=== PATIENT | female | born 1960 | race Caucasian/White ===

== ENCOUNTER → 2020-01-16 | Outpatient (CLI) | payer MEDICARE, BC, OTHER ==
--- NOTE | 2020-01-16 14:01 | CT ---
EXAMINATION TYPE: CT abdomen pelvis w con DATE OF EXAM: 01/16/2020 COMPARISON: None HISTORY: Abdominal swelling CT DLP: 1557.2 mGycm Automated exposure control for dose reduction was used. CONTRAST: CT scan of the abdomen pelvis is performed with IV Contrast, patient injected with 100 mL of Isovue 3 00. FINDINGS- exam limited by motion artifact. LUNG BASES- No significant abnormality is appreciated. LIVER/GB- No gross abnormality is appreciated. PANCREAS- No gross abnormality is seen. SPLEEN- No gross abnormality is seen. ADRENALS- No gross abnormality is seen. KIDNEYS/BLADDER- no hydronephrosis nephrolithiasis or renal mass. BOWEL- no bowel dilatation. Normal appendix. LYMPH NODES- No greater than 1cm abdominal or pelvic lymph nodes areappreciated. OSSEOUS STRUCTURES-scoliosis with multilevel hypertrophic and degenerative changes. OTHER- calcification within the uterus could be related to a fibroid. There also is a calcification involving the right adnexa and a soft tissue nodule. This could be related to calcification the right ovary or exophytic fibroid. Recommend pelvic ultrasound. IMPRESSION- 1. Limited exam due to severe motion artifact. Calcified soft tissue nodule in the right adnexa and c alcification within the uterus. May represent calcified fibroid including exophytic fibroid versus ca lcified ovarian lesion. Recommend pelvic ultrasound.
== END | disposition home or self-care (01) ==
LOC: RADCTMAIN 11:24
PROVIDERS: ATTEND Physician Assistant
DX: M79.89 Other specified soft tissue disorders (principal)
CPT/HCPCS: 74177; Q9967

== ENCOUNTER → 2020-03-09 | Outpatient (CLI) | payer MEDICARE, BC, OTHER ==
--- NOTE | 2020-03-10 09:35 | US ---
EXAMINATION TYPE: US pelvic complete DATE OF EXAM: 03/09/2020 COMPARISON: CT CLINICAL HISTORY: N85.8 NONINFLAMMATORY DISORDER OF UTERUS. Followup for Calcifications seen in uteru s and right adnexa on CT TECHNIQUE: Transabdominal (TA). Transabdominal sonographic images of the pelvis were acquired. Tra nsvaginal sonographic images were deferred per patient's caregiver. Date of LMP: Menopause in 5th decade. EXAM MEASUREMENTS: US exam is technically limited due to partially filled bladder. Uterus: 3.2 x 2.6 x 1.5 cm Endometrial Stripe: not seen Right Ovary: not seen Left Ovary: not seen 1. Uterus: Anteverted 2. Endometrium: not seen 3. Right Ovary: not seen 4. Left Ovary: not seen 5. Bilateral Adnexa: linear echogenicity noted in right adnexa suggestive of bowel with posterior di rty shadow. Ovaries are not identified. 6. Posterior cul-de-sac: wnl IMPRESSION: 1. No suspicious acute abnormality. 2. Exam limited due to bowel gas
== END | disposition home or self-care (01) ==
LOC: RADUSWWP 15:29
PROVIDERS: ATTEND Family Medicine
DX: N85.8 Other specified noninflammatory disorders of uterus (principal)
CPT/HCPCS: 76856

== ENCOUNTER 2020-06-27 04:16 | Inpatient (IN) | payer MEDICARE, BC, OTHER ==
[2020-06-27] MEDS ORDERED: ACETAMINOPHEN TAB 500 MG TAB PO STA (04:19)
[2020-06-27] MEDS ORDERED: KETOROLAC 15 MG/ML 1 ML VIAL IVP STA (04:19)
--- NOTE | 2020-06-27 04:32 | ED ---
Fever HPI - General Chief Complaint: Fever Stated Complaint: Fever Time Seen by Provider: 06/27/20 04:19 Source: family, EMS, RN notes reviewed, old records reviewed Mode of arrival: EMS Limitations: altered mental status - History of Present Illness Initial Comments: This is a 60-year-old female who is a poor story and unable to speak secondary to developmental delay presented today for evaluation of fever after fall out of bed. Again patient cannot provide history was found after fall no real notes of complaint, history obtained from EMS and patient's family. No known exposures to coronavirus but secondary to fever patient does present to ER. MD Complaint: fever, malaise, weakness, other (Fall) -: unknown Temperature Source: subjective, oral Context: sick contacts, multiple patients with similar symptoms (Family did have coronavirus) Associated Symptoms: other (Weakness) Treatments Prior to Arrival: none - Related Data Allergies Allergy/AdvReac Type Severity Reaction Status Date / Time No Known Allergies Allergy Verified 06/27/20 04:30 Review of Systems ROS Statement: Those systems with pertinent positive or pertinent negative responses have been documented in the HPI. ROS Other: All systems not noted in ROS Statement are negative. Past Medical History Past Medical History: Diabetes Mellitus, Hyperlipidemia, Hypertension History of Any Multi-Drug Resistant Organisms: None Reported Past Surgical History: No Surgical Hx Reported Past Psychological History: Anxiety, Depression Smoking Status: Never smoker Past Alcohol Use History: None Reported Past Drug Use History: None Reported General Exam Limitations: altered mental status General appearance: alert, in no apparent distress Head exam: Present: atraumatic, normocephalic, normal inspection Eye exam: Present: normal appearance, PERRL, EOMI. Absent: scleral icterus, conjunctival injection, periorbital swelling ENT exam: Present: normal exam, mucous membranes moist Neck exam: Present: normal inspection. Absent: tenderness, meningismus, lymphadenopathy Respiratory exam: Present: normal lung sounds bilaterally. Absent: respiratory distress, wheezes, rales, rhonchi, stridor Cardiovascular Exam: Present: regular rate, normal rhythm, normal heart sounds. Absent: systolic murmur, diastolic murmur, rubs, gallop, clicks GI/Abdominal exam: Present: soft, normal bowel sounds. Absent: distended, tenderness, guarding, rebound, rigid Extremities exam: Present: normal inspection, full ROM, normal capillary refill. Absent: tenderness, pedal edema, joint swelling, calf tenderness Back exam: Present: normal inspection Neurological exam: Present: alert, oriented X3, CN II-XII intact Psychiatric exam: Present: normal affect, normal mood Skin exam: Present: warm, dry, intact, normal color. Absent: rash Course Vital Signs 06/27/20 06/27/20 04:18 05:22 Temperature 101.0 F H Pulse Rate 79 Respiratory 22 22 Rate Blood Pressure 103/48 O2 Sat by Pulse 96 Oximetry - Reevaluation(s) Reevaluation #1: 06/27/20 06:31 Medical records reviewed Reevaluation #2: 06/27/20 06:31 Unable to tell patient has any change in symptoms. Fevers improved Reevaluation #3: 06/27/20 06:31 Spoke with patient and family regarding the patient's results. - Consultations Consultation #1: Spoke with Dr Montiel who will admit this patient Medical Decision Making - Medical Decision Making 60 female to the ER for evaluation patient presents today for evaluation of fever. Fever after fall. Patient will be rule out coronavirus of urinary tract infection - Lab Data Result diagrams: 06/27/20 04:48 06/27/20 04:48 Lab Results 06/27/20 06/27/20 06/27/20 Range/Units 04:48 04:48 04:48 WBC 7.5 (3.8-10.6) k/uL RBC 4.11 (3.80-5.40) m/uL Hgb 12.3 (11.4-16.0) gm/dL Hct 38.7 (34.0-46.0) % MCV 94.2 (80.0-100.0) fL MCH 30.0 (25.0-35.0) pg MCHC 31.9 (31.0-37.0) g/dL RDW 13.1 (11.5-15.5) % Plt Count 82 L (150-450) k/uL MPV 7.2 Neutrophils % 85 % Lymphocytes % 7 % Monocytes % 6 % Eosinophils % 1 % Basophils % 0 % Neutrophils # 6.3 (1.3-7.7) k/uL Lymphocytes # 0.5 L (1.0-4.8) k/uL Monocytes # 0.4 (0-1.0) k/uL Eosinophils # 0.1 (0-0.7) k/uL Basophils # 0.0 (0-0.2) k/uL Manual Slide Review Performed PT 10.2 (9.0-12.0) sec INR 0.9 (<1.2) APTT 22.9 (22.0-30.0) sec Sodium 135 L (137-145) mmol/L Potassium 4.9 (3.5-5.1) mmol/L Chloride 104 (98-107) mmol/L Carbon Dioxide 24 (22-30) mmol/L Anion Gap 7 mmol/L BUN 33 H (7-17) mg/dL Creatinine 1.37 H (0.52-1.04) mg/dL Est GFR (CKD-EPI)AfAm 48 (>60 ml/min/1.73 sqM) Est GFR (CKD-EPI)NonAf 42 (>60 ml/min/1.73 sqM) Glucose 210 H (74-99) mg/dL Plasma Lactic Acid Archie (0.7-2.0) mmol/L Calcium 9.4 (8.4-10.2) mg/dL Magnesium 1.9 (1.6-2.3) mg/dL Total Bilirubin 1.1 (0.2-1.3) mg/dL AST 21 (14-36) U/L ALT 21 (4-34) U/L Alkaline Phosphatase 77 (38-126) U/L Lactate Dehydrogenase 441 (313-618) U/L C-Reactive Protein 154.6 H (<10.0) mg/L Total Protein 6.3 (6.3-8.2) g/dL Albumin 3.6 (3.5-5.0) g/dL Urine Color Urine Appearance (Clear) Urine pH (5.0-8.0) Ur Specific [place] (1.001-1.035) Urine Protein (Negative) Urine Glucose (UA) (Negative) Urine Ketones (Negative) Urine Blood (Negative) Urine Nitrite (Negative) Urine Bilirubin (Negative) Urine Urobilinogen (<2.0) mg/dL Ur Leukocyte Esterase (Negative) Urine RBC (0-5) /hpf Urine WBC (0-5) /hpf Urine WBC Clumps (None) /hpf Urine Bacteria (None) /hpf Urine Mucus (None) /hpf Coronavirus (PCR) (Not Detectd) 06/27/20 06/27/20 06/27/20 Range/Units 04:48 04:48 05:19 WBC (3.8-10.6) k/uL RBC (3.80-5.40) m/uL Hgb (11.4-16.0) gm/dL Hct (34.0-46.0) % MCV (80.0-100.0) fL MCH (25.0-35.0) pg MCHC (31.0-37.0) g/dL RDW (11.5-15.5) % Plt Count (150-450) k/uL MPV Neutrophils % % Lymphocytes % % Monocytes % % Eosinophils % % Basophils % % Neutrophils # (1.3-7.7) k/uL Lymphocytes # (1.0-4.8) k/uL Monocytes # (0-1.0) k/uL Eosinophils # (0-0.7) k/uL Basophils # (0-0.2) k/uL Manual Slide Review PT (9.0-12.0) sec INR (<1.2) APTT (22.0-30.0) sec Sodium (137-145) mmol/L Potassium (3.5-5.1) mmol/L Chloride (98-107) mmol/L Carbon Dioxide (22-30) mmol/L Anion Gap mmol/L BUN (7-17) mg/dL Creatinine (0.52-1.04) mg/dL Est GFR (CKD-EPI)AfAm (>60 ml/min/1.73 sqM) Est GFR (CKD-EPI)NonAf (>60 ml/min/1.73 sqM) Glucose (74-99) mg/dL Plasma Lactic Acid Archie 1.3 (0.7-2.0) mmol/L Calcium (8.4-10.2) mg/dL Magnesium (1.6-2.3) mg/dL Total Bilirubin (0.2-1.3) mg/dL AST (14-36) U/L ALT (4-34) U/L Alkaline Phosphatase (38-126) U/L Lactate Dehydrogenase (313-618) U/L C-Reactive Protein (<10.0) mg/L Total Protein (6.3-8.2) g/dL Albumin (3.5-5.0) g/dL Urine Color Yellow Urine Appearance Cloudy H (Clear) Urine pH 5.5 (5.0-8.0) Ur Specific [place] 1.014 (1.001-1.035) Urine Protein 1+ H (Negative) Urine Glucose (UA) Negative (Negative) Urine Ketones Trace H (Negative) Urine Blood Small H (Negative) Urine Nitrite Positive H (Negative) Urine Bilirubin Negative (Negative) Urine Urobilinogen <2.0 (<2.0) mg/dL Ur Leukocyte Esterase Large H (Negative) Urine RBC 2 (0-5) /hpf Urine WBC 22 H (0-5) /hpf Urine WBC Clumps Many H (None) /hpf Urine Bacteria Many H (None) /hpf Urine Mucus Rare H (None) /hpf Coronavirus (PCR) Not Detected (Not Detectd) - EKG Data -: EKG Interpreted by Me (EKG shows 81 WV 178 QRS 86 QTc 469) - Radiology Data Radiology results: report reviewed (Chest x-rays negative for acute disease), image reviewed Disposition Clinical Impression: Viral infection, UTI (urinary tract infection), Fever, Weakness, Fall Disposition: ADMITTED IP TO THIS HOSP Condition: Fair Is patient prescribed a controlled substance at d/c from ED?: No Referrals: Luca Key MD [Primary Care Provider] - 1-2 days
--- NOTE | 2020-06-27 05:05 | XR ---
EXAM: XR Chest, 1 View CLINICAL HISTORY: ITS.REASON XR Reason: Suspected COVID-19 pneumonia TECHNIQUE: Frontal view of the chest. COMPARISON: No relevant prior studies available. FINDINGS: Lungs: Evaluation of the left lung is limited by obliquity. Opacities in the left lung cannot be excluded. The right lung is well-aerated. Pleural space: Unremarkable. No pneumothorax. No large pleural effusion. Heart: The cardiac silhouette is poorly defined. Borderline cardiomegaly suggested. Mediastinum: Limited. No tracheal deviation. Bones/joints: Unremarkable. IMPRESSION: Evaluation of the left lung is limited by obliquity. Opacities in the left lung cannot be excluded. The right lung is well-aerated. No large pleural effusion or pneumothorax.
[2020-06-27 05:30] LABS: Basophils % (A) 0 %; Eosinophils # (A) 0.1 k/uL (0-0.7); Eosinophils % (A) 1 %; HCT 38.7 % (34.0-46.0); HGB 12.3 gm/dL (11.4-16.0); Lymphocytes # (A) 0.5 k/uL (1.0-4.8); Lymphocytes % (A) 7 %; MCHC 31.9 g/dL (31.0-37.0); MCV 94.2 fL (80.0-100.0); Mean Platelet Volume 7.2; Monocytes # (A) 0.4 k/uL (0-1.0); Monocytes % (A) 6 %; Neutrophils # (A) 6.3 k/uL (1.3-7.7); Neutrophils % (A) 85 %; RBC 4.11 m/uL (3.80-5.40); RDW 13.1 % (11.5-15.5); WBC 7.5 k/uL (3.8-10.6)
[2020-06-27 05:42] LABS: INR 0.9 (<1.2); Partial Thromboplastin Time 22.9 sec (22.0-30.0); Prothrombin Time 10.2 sec (9.0-12.0)
[2020-06-27 05:51] LABS: Albumin 3.6 g/dL (3.5-5.0); Calcium 9.4 mg/dL (8.4-10.2); Magnesium 1.9 mg/dL (1.6-2.3); Potassium 4.9 mmol/L (3.5-5.1); Total Bilirubin 1.1 mg/dL (0.2-1.3); Total Protein 6.3 g/dL (6.3-8.2)
[2020-06-27 06:01] LABS: Platelet Count 82 k/uL (150-450)
[2020-06-27 06:08] LABS: Appearance,Urine Cloudy (Clear); Bacteria,Urine Many /hpf; Bilirubin,Urine Negative (Negative); Blood,Urine Small (Negative); Color,Urine Yellow; Glucose,Urine (UA) Negative (Negative); Ketones,Urine Trace (Negative); Leukocyte Esterase,Urine Large (Negative); Mucus,Urine Rare /hpf; Nitrite,Urine Positive (Negative); PH, Urine 5.5 (5.0-8.0); Protein,Urine 1+ (Negative); RBC,Urine 2 /hpf (0-5); Specific Gravity,Urine 1.014 (1.001-1.035); Urobilinogen,Urine <2.0 mg/dL (<2.0); WBC,Urine 22 /hpf (0-5)
[2020-06-27 06:15] LABS: C Reactive Protein 154.6 mg/L (<10.0)
[2020-06-27] MEDS ORDERED: MORPHINE SULFATE 4 MG/ML SYRINGE IV PRN (06:28)
[2020-06-27] MEDS ORDERED: NALOXONE 0.4 MG/ML 1 ML VIAL IV PRN (06:28)
[2020-06-27 11:41] LABS: Glucose,Whole Blood 238 mg/dL (75-99)
[2020-06-27] MEDS: ENOXAPARIN 40 MG/0.4 ML SYRINGE SQ SCH (12:16)
[2020-06-27] MEDS: carvediloL 3.125 MG TAB PO SCH ×2 (14:04→21:30)
[2020-06-27] MEDS: LACTATED RINGERS 1,000 ML IV SCH ×2 (14:38→20:58)
[2020-06-27] MEDS: ONDANSETRON 4 MG/2 ML VIAL IVP PRN (17:05)
[2020-06-27 17:17] LABS: Glucose,Whole Blood 141 mg/dL (75-99)
[2020-06-27] MEDS: INSULIN ASPART (NovoLOG) 100 UNIT/ML VIAL SQ SCH ×2 (17:18→20:57)
--- NOTE | 2020-06-27 20:03 | CONS ---
CONSULTATION DATE OF SERVICE: 06/27/2020 REASON FOR CONSULTATION: Fever and UTI. HISTORY OF PRESENT ILLNESS: The patient is a 60-year-old female with a past medical history significant for developmental delay. This patient apparently fell out of bed last night. EMS was called, and on arrival of the EMS, the patient was noted to have a fever, for which the patient was brought to the hospital. Apparently the patient did have incontinence of urine. However, no recent worsening of her symptoms has been noted by the caregiver at the bedside. No clear history of any nausea, vomiting or any diarrhea, and respiratory status has been stable. On presentation to the hospital the patient did have a fever of 101 degrees Fahrenheit. The patient is currently 97% on room air. She did have a normal white count with lymphopenia. BUN and creatinine are slightly elevated. Liver enzymes are normal. CRP was 154. is positive. Burton PCR negative x2. Chest x- ray negative for any acute infiltrate. The patient was started on Rocephin and has been admitted to the hospital. Infectious Disease was consulted for further management of antibiotic therapy. Most of the information has been obtained from review of the chart and talking to the family at the bedside, as the patient herself is unable to provide a reliable history. REVIEW OF SYSTEMS: Positive points have been mentioned in HPI. Complete review could not be obtained because of underlying condition. PAST MEDICAL HISTORY: Hypertension, hyperlipidemia, diabetes mellitus, anxiety, depression. PAST SURGICAL HISTORY: No surgeries. SOCIAL HISTORY: No history of smoking, drinking or drug use. FAMILY HISTORY: Could not be provided. ALLERGIES: NO KNOWN DRUG ALLERGIES. MEDICATIONS: The patient is currently on aspirin, Lipitor, Coreg, Rocephin 1 gram daily. She is on vitamin D, Lovenox, Prozac, Glucophage, Narcan and Zofran. PHYSICAL EXAMINATION: Blood pressure is 95/44 with a pulse of 71, temperature 98.1, T-max 101. She is 97% on room air. General description is a middle-aged female lying in bed in no distress. No tachypnea or respiration use. HEENT: Examination shows no pallor or scleral icterus. Oral mucous membrane is dry. NECK: Trachea is central. No thyromegaly. LUNGS: Unlabored breathing. Clear to auscultation anteriorly. No wheeze or crackle. HEART: S1, S2. Regular rate and rhythm. ABDOMEN: Soft. No tenderness. No guarding or rigidity. EXTREMITIES: No edema of the feet. SKIN EXAMINATION: No rash or mass palpable. Neurologically, the patient is awake and alert. Orientation could not be . LABS: Hemoglobin is 12.3, white count 7.5. BUN of 33, creatinine 1.37. DIAGNOSTIC IMPRESSION AND PLAN: Patient admitted to hospital with fever. Source is likely urinary tract infection, likely from enteric Gram-negative pathogen, as there is no other obvious focus of infection. PLAN: 1. Rocephin 1 gram IV piggyback daily to continue. 2. Gentle IV fluid. 3. Will follow clinical condition and culture to further adjust medication if needed. Thank you for this consultation. Will follow this patient along with you. MMODL / IJN: [id number] /
[2020-06-27 20:39] LABS: Glucose,Whole Blood 204 mg/dL (75-99)
[2020-06-27] MEDS: FLUoxetine HCL 10 MG CAP PO SCH (20:53)
[2020-06-27] MEDS: ATORVASTATIN 20 MG TAB PO SCH (20:53)
[2020-06-27] MEDS: CHOLECALCIFEROL 1,000 UNIT TAB PO SCH (20:53)
[2020-06-27] MEDS: metFORMIN 500 MG TAB PO SCH (20:53)
[2020-06-27] MEDS: ASPIRIN 81 MG PO SCH (20:53)
--- NOTE | 2020-06-27 21:45 | P.HPIM ---
History of Present Illness H&P Date: 06/27/20 Chief Complaint: Fever History of presenting complaint: This is a pleasant 60-year-old patient of Dr. Key. 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 Most of the history is obtained by the sister the bedside. Patient is able tonsil simple questions. Patient lives with her mother. Sr. Crane the deep POA. Does use a walker. Patient does have a hyper gag reflux. Often times will vomit. Last night she noted episode where she again vomited. Going to the bathroom she fell down. Was unable to get up. 2 in the morning the mother called patient's sister she and her was unable to pick of the patient. EMS recorded a fever of 102.3. Patient urine came back rather infected appearing. Patient has a slight cough which is not new. Denies shortness of breath. 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 Patient's sister Rachael'odbulia the POA. Does use a walker Family history: Reviewed, noncontributory to presentation Physical examination: VITAL SIGNS: 101, 79, 22, 103/48, 96% room air GENERAL: BMI 32.9, reclining in bed, not in distress. EYES: Pupils equal. Conjunctiva normal. HEENT: External appearance of nose and ears normal, oral cavity grossly normal. NECK: JVD not raised; masses not palpable. HEART: First and second heart sounds are normal; no edema. LUNGS: Respiratory rate normal; clear to auscultation. ABDOMEN: Soft, nontender, liver spleen not palpable, no masses palpable. PSYCH: Patient can answer some questionsl. NEUROLOGICAL: Cranial nerves grossly intact; no facial asymmetry, power and sensation grossly intact. 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 IV ceftriaxone. Home medications resumed. Accu- Cheks will be followed. Repeat labs in the morning. Care was discussed the sister the bedside. Questions answered. Lovenox for DVT prophylaxis. Past Medical History Past Medical History: Diabetes Mellitus, Hyperlipidemia, Hypertension History of Any Multi-Drug Resistant Organisms: None Reported Past Surgical History: No Surgical Hx Reported Past Psychological History: Anxiety, Depression Smoking Status: Never smoker Past Alcohol Use History: None Reported Past Drug Use History: None Reported - Past Family History Mother Family Medical History: No Reported History Father Family Medical History: Congestive Heart Failure (CHF), Coronary Artery Disease (CAD) Medications and Allergies Home Medications Medication Instructions Recorded Confirmed Type Aspirin [Adult Low Dose Aspirin EC] 81 mg PO HS 06/27/20 06/27/20 History Atorvastatin [Lipitor] 20 mg PO HS 06/27/20 06/27/20 History Cholecalciferol [Vitamin D3 (25 1,000 unit PO HS 06/27/20 06/27/20 History Mcg = 1000 Iu)] FLUoxetine HCL [PROzac] 30 mg PO HS 06/27/20 06/27/20 History carvediloL [Coreg] 3.125 mg PO BID 06/27/20 06/27/20 History metFORMIN HCL ER [Glucophage Xr] 1,000 mg PO HS 06/27/20 06/27/20 History Allergies Allergy/AdvReac Type Severity Reaction Status Date / Time No Known Allergies Allergy Verified 06/27/20 07:28 Physical Exam Vitals: Vital Signs Temp Pulse Pulse Resp BP BP Pulse Ox 06/27/20 11:00 97.8 F 66 15 90/42 97 06/27/20 08:00 98.1 F 71 16 95/44 97 06/27/20 06:36 100.6 F H 68 18 113/45 97 06/27/20 05:22 22 06/27/20 04:18 101.0 F H 79 22 103/48 96 Intake and Output 01/02/0606/27/20 06/27/20 22:59 06:59 14:59 Other: Weight 81.647 kg 81.647 kg Results CBC & Chem 7: 06/27/20 04:48 06/27/20 04:48 Labs: Abnormal Lab Results - Last 24 Hours (Table) 06/27/20 06/27/20 06/27/20 Range/Units 04:48 04:48 05:19 Plt Count 82 L (150-450) k/uL Lymphocytes # 0.5 L (1.0-4.8) k/uL Sodium 135 L (137-145) mmol/L BUN 33 H (7-17) mg/dL Creatinine 1.37 H (0.52-1.04) mg/dL Glucose 210 H (74-99) mg/dL POC Glucose (mg/dL) (75-99) mg/dL C-Reactive Protein 154.6 H (<10.0) mg/L Urine Appearance Cloudy H (Clear) Urine Protein 1+ H (Negative) Urine Ketones Trace H (Negative) Urine Blood Small H (Negative) Urine Nitrite Positive H (Negative) Ur Leukocyte Esterase Large H (Negative) Urine WBC 22 H (0-5) /hpf Urine WBC Clumps Many H (None) /hpf Urine Bacteria Many H (None) /hpf Urine Mucus Rare H (None) /hpf 06/27/20 Range/Units 11:39 Plt Count (150-450) k/uL Lymphocytes # (1.0-4.8) k/uL Sodium (137-145) mmol/L BUN (7-17) mg/dL Creatinine (0.52-1.04) mg/dL Glucose (74-99) mg/dL POC Glucose (mg/dL) 238 H (75-99) mg/dL C-Reactive Protein (<10.0) mg/L Urine Appearance (Clear) Urine Protein (Negative) Urine Ketones (Negative) Urine Blood (Negative) Urine Nitrite (Negative) Ur Leukocyte Esterase (Negative) Urine WBC (0-5) /hpf Urine WBC Clumps (None) /hpf Urine Bacteria (None) /hpf Urine Mucus (None) /hpf Microbiology - Last 24 Hours (Table) 06/27/20 05:19 Urine Culture - Preliminary Urine,Catheterized Thrombosis Risk Factor Assmnt - Choose All That Apply Each Risk Factor Represents 2 Points: Age 61-74 years Thrombosis Risk Factor Assessment Total Risk Factor Score: 2 Thrombosis Risk Factor Assessment Level: Low Risk
[2020-06-28] MEDS: LACTATED RINGERS 1,000 ML IV SCH ×4 (04:56→21:30)
[2020-06-28] MEDS: ACETAMINOPHEN TAB 325 MG TAB PO PRN ×2 (04:56→21:23)
[2020-06-28 06:13] LABS: Basophils % (A) 0 %; Eosinophils % (A) 0 %; HCT 33.1 % (34.0-46.0); HGB 11.2 gm/dL (11.4-16.0); Lymphocytes # (A) 0.5 k/uL (1.0-4.8); Lymphocytes % (A) 11 %; MCH 31.7 pg (25.0-35.0); MCHC 33.9 g/dL (31.0-37.0); MCV 93.4 fL (80.0-100.0); Mean Platelet Volume 7.7; Monocytes # (A) 0.4 k/uL (0-1.0); Monocytes % (A) 10 %; Neutrophils # (A) 3.3 k/uL (1.3-7.7); Neutrophils % (A) 76 %; RBC 3.54 m/uL (3.80-5.40); RDW 12.6 % (11.5-15.5); WBC 4.4 k/uL (3.8-10.6)
[2020-06-28 06:28] LABS: Platelet Count 71 k/uL (150-450)
[2020-06-28 07:32] LABS: Glucose,Whole Blood 167 mg/dL (75-99)
[2020-06-28] MEDS: metFORMIN 500 MG TAB PO SCH ×2 (08:26→21:30)
[2020-06-28] MEDS: INSULIN ASPART (NovoLOG) 100 UNIT/ML VIAL SQ SCH ×4 (08:26→21:29)
[2020-06-28] MEDS: carvediloL 3.125 MG TAB PO SCH ×2 (08:26→21:23)
[2020-06-28] MEDS: ENOXAPARIN 40 MG/0.4 ML SYRINGE SQ SCH (08:26)
[2020-06-28 10:41] LABS: African American GFR (CKD) 39.6 (60.0-200.0); Albumin 3.3 g/dL (3.80-4.90); Albumin/Globulin Ratio 1.83 (1.60-3.17); Anion Gap 7.9 mmol/L (4.00-12.00); BUN/Creat Ratio 24.38 Ratio (12.00-20.00); Calcium 8.7 mg/dL (8.7-10.3); Carbon Dioxide 27.1 mmol/L (21.6-31.8); Globulin 1.8 g/dL (1.6-3.3); Non-African American GFR(CKD) 34.2 (60.0-200.0); Potassium 4.4 mmol/L (3.5-5.5); Total Bilirubin 0.3 mg/dL (0.2-1.2); Total Protein 5.1 g/dL (6.2-8.2)
[2020-06-28 11:43] LABS: Glucose,Whole Blood 167 mg/dL (75-99)
[2020-06-28 17:00] LABS: Glucose,Whole Blood 219 mg/dL (75-99)
[2020-06-28 21:05] LABS: Glucose,Whole Blood 145 mg/dL (75-99)
--- NOTE | 2020-06-28 21:17 | P.PN ---
Progress Note - Text Progress Note Date: 06/28/20 Chief Complaint: Fever History of presenting complaint: This is a pleasant 60-year-old patient of Dr. Key. 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 Most of the history is obtained by the sister the bedside. Patient is able tonsil simple questions. Patient lives with her mother. Sr. Cano's the deep POA. Does use a walker. Patient does have a hyper gag reflux. Often times will vomit. Last night she noted episode where she again vomited. Going to the bathroom she fell down. Was unable to get up. 2 in the morning the mother called patient's sister she and her was unable to pick of the patient. EMS recorded a fever of 102.3. Patient urine came back rather infected appearing. Patient has a slight cough which is not new. Denies shortness of breath. Admitted with acute UTI with cystitis. Started on ceftriaxone. Today-sister the bedside. Patient had some vomiting this morning. Feeling better now. Review of systems: Was done for constitutional, cardiovascular, GI, pulmonary. relevant finding as above Active Medications Acetaminophen (Acetaminophen Tab 325 Mg Tab) 650 mg PO Q6HR PRN PRN Reason: Fever and/ or Pain Last Admin: 06/28/20 04:56 Dose: 650 mg Documented by: Aspirin (Aspirin 81 Mg) 81 mg PO [facility] Last Admin: 06/27/20 20:53 Dose: 81 mg Documented by: Atorvastatin Calcium (Atorvastatin 20 Mg Tab) 20 mg PO [facility] Last Admin: 06/27/20 20:53 Dose: 20 mg Documented by: Carvedilol (Carvedilol 3.125 Mg Tab) 3.125 mg PO BID [facility] Last Admin: 06/28/20 08:26 Dose: 3.125 mg Documented by: Cholecalciferol (Cholecalciferol 1,000 Unit Tab) 1,000 unit PO [facility] Last Admin: 06/27/20 20:53 Dose: 1,000 unit Documented by: Enoxaparin Sodium (Enoxaparin 40 Mg/0.4 Ml Syringe) 40 mg SQ DAILY [facility] Last Admin: 06/28/20 08:26 Dose: 40 mg Documented by: Fluoxetine HCl (Fluoxetine Hcl 10 Mg Cap) 30 mg PO [facility] Last Admin: 06/27/20 20:53 Dose: 30 mg Documented by: Lactated Ringer's (Lactated Ringers) 1,000 mls @ 125 mls/hr IV .Q8H [facility] Last Admin: 06/28/20 13:05 Dose: 125 mls/hr Documented by: Ceftriaxone Sodium 1 gm/ (Sodium Chloride) 50 mls @ 100 mls/hr IVPB HS [facility] Last Admin: 06/27/20 20:52 Dose: 100 mls/hr Documented by: Insulin Aspart (Insulin Aspart (Novolog) 100 Unit/Ml Vial) 0 unit SQ ACHS [facility]; Protocol Last Admin: 06/28/20 18:35 Dose: 3 unit Documented by: Metformin HCl (Metformin 500 Mg Tab) 500 mg PO BID [facility] Last Admin: 06/28/20 08:26 Dose: 500 mg Documented by: Naloxone HCl (Naloxone 0.4 Mg/Ml 1 Ml Vial) 0.2 mg IV Q2M PRN PRN Reason: Opioid Reversal Ondansetron HCl (Ondansetron 4 Mg/2 Ml Vial) 4 mg IVP Q6HR PRN PRN Reason: Nausea And Vomiting Last Admin: 06/27/20 17:05 Dose: 4 mg Documented by: Past medical history to include: 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 Patient's sister Rachael's the POA. Does use a walker Family history: Reviewed, noncontributory to presentation Physical examination: VITAL SIGNS: 98.4, 82, 16, 102/46, 95% room air GENERAL: BMI 32.9, reclining in bed, awake EYES: Pupils equal. Conjunctiva normal. HEENT: External appearance of nose and ears normal, oral cavity grossly normal. NECK: JVD not raised; masses not palpable. HEART: First and second heart sounds are normal; no edema. LUNGS: Respiratory rate normal; decreased breath sounds ABDOMEN: Soft, nontender, liver spleen not palpable, no masses palpable. PSYCH: Patient can answer some questionsl. INVESTIGATIONS, reviewed in the clinical context: June 28: Count 4.4 hemoglobin 11.2 platelets 71 potassium 4.4 creatinine 1.6 White count 7.5 hemoglobin 12.3 platelets 82 potassium 4.9 BUN 33 creatinine 1.37 UA positive for leukoesterase nitrite WBC Coronavirus P/Cr-not detected EKG tracing personally reviewed by me-normal sinus rhythm, PVC Urine culture showing gram-negative bacilli Left culture growing gram-negative bacilli Assessment: -Acute UTI with cystitis, with sepsis with blood cultures growing gram-negative bacilli to -Possibly acute kidney injury with ATN from infection and hypotension-slow to respond -Thrombocytopenia -Diabetes mellitus type 2 -Hyperlipidemia -Essential hypertension -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 IV ceftriaxone. Repeat labs in the morning. Discussed with the sister. Repeat blood cultures in the morning
[2020-06-28] MEDS: ATORVASTATIN 20 MG TAB PO SCH (21:23)
[2020-06-28] MEDS: ASPIRIN 81 MG PO SCH (21:23)
[2020-06-28] MEDS: CHOLECALCIFEROL 1,000 UNIT TAB PO SCH (21:23)
[2020-06-28] MEDS: FLUoxetine HCL 10 MG CAP PO SCH (21:29)
[2020-06-28] MEDS ORDERED: cefTRIAXone 2 MG in SODIUM CHLORIDE 0.9% 50 ML IVPB SCH (22:00)
--- NOTE | 2020-06-28 22:25 | PN ---
PROGRESS NOTE DATE OF SERVICE: 06/28/2020 REASON FOR FOLLOWUP: UTI and bacteremia. INTERVAL HISTORY: The patient did have a low-grade fever today of 100.9, though overall has improved. The patient seems to be more calm and relaxed. No vomiting, diarrhea or any other changes reported by the caregiver. PHYSICAL EXAMINATION: Blood pressure 120/84 with pulse of 67, temperature 98.5. She is 96% on room air. General description is a middle-aged female lying in bed in no distress. RESPIRATORY SYSTEM: Unlabored breathing with decreased intensity of breath sounds. No wheeze. HEART: S1, S2. Regular rate and rhythm. ABDOMEN: Soft. No tenderness. LABS: Hemoglobin 11.2, white count 4.4. BUN of 39, creatinine 1.6. Blood culture with Gram- negative bacilli. DIAGNOSTIC IMPRESSION AND PLAN: Patient with Gram-negative bacteremia. Source is urinary. In view of the bacteremia, ultrasound of the kidneys to make sure there is no evidence of any structural abnormality. Will increase the dose of Rocephin to 2 grams daily while waiting for the culture to finalize. Continue with supportive care. MMODL / IJN: [id number] /
[2020-06-29] MEDS: LACTATED RINGERS 1,000 ML IV SCH (05:37)
[2020-06-29 07:02] LABS: Glucose,Whole Blood 117 mg/dL (75-99)
[2020-06-29] MEDS: INSULIN ASPART (NovoLOG) 100 UNIT/ML VIAL SQ SCH ×4 (07:03→22:01)
[2020-06-29] MEDS: ENOXAPARIN 40 MG/0.4 ML SYRINGE SQ SCH (07:16)
[2020-06-29] MEDS: carvediloL 3.125 MG TAB PO SCH ×2 (07:16→20:26)
[2020-06-29] MEDS: metFORMIN 500 MG TAB PO SCH ×2 (07:16→20:27)
--- NOTE | 2020-06-29 08:43 | US ---
EXAMINATION TYPE: US kidneys/renal and bladder DATE OF EXAM: 06/29/2020 COMPARISON: 01/16/2020 CLINICAL HISTORY: 60-year-old female UTI and bacteremia. TECHNIQUE: Multiple sonographic images of the kidneys and bladder are obtained. FINDINGS: EXAM MEASUREMENTS: Right Kidney: 9.5 x 4.5 x 4.8 cm Left Kidney: 9.6 x 5.2 x 4.9 cm No hydronephrosis on either side. Bladder: No gross abnormality. Bilateral Jets seen: right jet seen, left jet not seen IMPRESSION: No hydronephrosis.
[2020-06-29 09:15] LABS: African American GFR (CKD) 50.9 (60.0-200.0); Anion Gap 6.8 mmol/L (4.00-12.00); BUN/Creat Ratio 23.08 Ratio (12.00-20.00); Calcium 8.9 mg/dL (8.7-10.3); Carbon Dioxide 28.2 mmol/L (21.6-31.8); Non-African American GFR(CKD) 43.9 (60.0-200.0); Potassium 4.8 mmol/L (3.5-5.5)
[2020-06-29 11:24] LABS: Glucose,Whole Blood 209 mg/dL (75-99)
--- NOTE | 2020-06-29 14:04 | P.PN ---
Subjective Progress Note Date: 06/29/20 HISTORY OF PRESENT ILLNESS This is a 60-year-old female who presented to the hospital with UTI a nd bacteremia, cultures positive for E. coli. Patient is currently treated with Rocephin 2 g IV piggyback daily with plan for oral antibiotics at discharge. Patient has not had any reported nausea vomiting or diarrhea. Patient has been afebrile for greater than 24 hours. Heart rate 77, blood pressure 117/50, pulse ox 94% on 2 L. Creatinine 1.3. Urine and blood culture are E. coli. Renal ult rasound revealed no hydronephrosis. PHYSICAL EXAMINATION Gen: This is a 60-year-old female. She is resting bed and appears to be comfortable. HEENT: Head is atraumatic, normocephalic. Pupils equal, round. Sclerae is anicteric. NECK: Supple. No JVD. No lymphadenopathy. LUNGS: Clear to auscultation. No wheezes or rhonchi. No intercostal retractions. HEART: Regular rate and rhythm. No murmur. ABDOMEN: Soft. Bowel sounds are present. No masses. No tenderness. EXTREMITIES: No pedal edema. No calf tenderness. ASSESSMENT E. coli bacteremia E. coli UTI PLAN Continue Rocephin 2 g daily Plan for ciprofloxacin for 10 day course The above dictated assessment and findings were discussed with Dr. Villafana. The impression and plan of care have been directed as dictated. Pearl Owen nurse practitioner acting as scribe for Dr. Villafana. Objective - Vital Signs Vital signs: Vital Signs Temp 97.6 F 06/29/20 10:20 Pulse 77 06/29/20 10:20 Resp 18 06/29/20 10:20 BP 117/50 06/29/20 10:20 Pulse Ox 94 L 06/29/20 10:20 Intake & Output 06/28/20 06/29/20 06/29/20 18:59 06:59 18:59 Intake Total 1000 Balance 1000 Intake: Intake, IV Titration 1000 Amount Lactated Ringers 1,000 ml 1000 @ 125 mls/hr IV .Q8H [facility] Rx#:[id number] Other: Voiding Method Toilet Toilet Diaper Diaper Incontinent Incontinent # Voids 3 3 1 # Bowel Movements 1 - Labs CBC & Chem 7: 06/28/20 04:54 06/29/20 05:33 Labs: Abnormal Lab Results - Last 24 Hours (Table) 06/28/20 06/28/20 06/29/20 Range/Units 16:58 21:02 05:33 BUN 30.0 H (9.0-27.0) mg/dL Est GFR (CKD-EPI)AfAm 50.9 L (60.0-200.0) Est GFR (CKD-EPI)NonAf 43.9 L (60.0-200.0) BUN/Creatinine Ratio 23.08 H (12.00-20.00) Ratio Glucose 129 H (70-110) mg/dL POC Glucose (mg/dL) 219 H 145 H (75-99) mg/dL 06/29/20 06/29/20 Range/Units 06:52 11:21 BUN (9.0-27.0) mg/dL Est GFR (CKD-EPI)AfAm (60.0-200.0) Est GFR (CKD-EPI)NonAf (60.0-200.0) BUN/Creatinine Ratio (12.00-20.00) Ratio Glucose (70-110) mg/dL POC Glucose (mg/dL) 117 H 209 H (75-99) mg/dL Microbiology - Last 24 Hours (Table) 06/27/20 05:19 Urine Culture - Final Urine,Catheterized Escherichia coli 06/27/20 04:48 Blood Culture Gram Stain - Final Blood Blood Culture - Final Escherichia coli
--- NOTE | 2020-06-29 16:16 | XR ---
EXAMINATION TYPE: XR chest 1V portable DATE OF EXAM: 06/29/2020 Comparison: 06/27/2020 Clinical History: 60-year-old female cough Findings: Leftward patient rotation alters normal cardiac and mediastinal contours. Normal variant azygos fissu re. Heart borderline in size. Mild interstitial prominence is chronic appearance. No tee consolidat ion or pleural effusion seen. Impression: No progressive infiltrate is identified. There is mild interstitial prominence which may be chronic. Subtle changes relating to atypical pneumonia not excluded in the correct clinical setting. Continued follow-up can be considered.
[2020-06-29 17:26] LABS: Glucose,Whole Blood 126 mg/dL (75-99)
[2020-06-29] MEDS: FLUoxetine HCL 10 MG CAP PO SCH (20:26)
[2020-06-29] MEDS: CHOLECALCIFEROL 1,000 UNIT TAB PO SCH (20:26)
[2020-06-29] MEDS: ATORVASTATIN 20 MG TAB PO SCH (20:26)
[2020-06-29] MEDS: ASPIRIN 81 MG PO SCH (20:26)
--- NOTE | 2020-06-29 20:58 | P.PN ---
Progress Note - Text Progress Note Date: 06/29/20 Chief Complaint: Fever History of presenting complaint: This is a pleasant 60-year-old patient of Dr. Key. 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 Most of the history is obtained by the sister the bedside. Patient is able tonsil simple questions. Patient lives with her mother. Sr. Cano's the deep POA. Does use a walker. Patient does have a hyper gag reflux. Often times will vomit. Last night she noted episode where she again vomited. Going to the bathroom she fell down. Was unable to get up. 2 in the morning the mother called patient's sister she and her was unable to pick of the patient. EMS recorded a fever of 102.3. Patient urine came back rather infected appearing. Patient has a slight cough which is not new. Denies shortness of breath. Admitted with acute UTI with cystitis. Started on ceftriaxone. Today-sister at the bedside. Doing better today. Tolerated diet. Review of systems: Was done for constitutional, cardiovascular, GI, pulmonary. relevant finding as above Active Medications Acetaminophen (Acetaminophen Tab 325 Mg Tab) 650 mg PO Q6HR PRN PRN Reason: Fever and/ or Pain Last Admin: 06/28/20 21:23 Dose: 650 mg Documented by: Aspirin (Aspirin 81 Mg) 81 mg PO [facility] Last Admin: 06/29/20 20:26 Dose: 81 mg Documented by: Atorvastatin Calcium (Atorvastatin 20 Mg Tab) 20 mg PO [facility] Last Admin: 06/29/20 20:26 Dose: 20 mg Documented by: Carvedilol (Carvedilol 3.125 Mg Tab) 3.125 mg PO BID [facility] Last Admin: 06/29/20 20:26 Dose: 3.125 mg Documented by: Cholecalciferol (Cholecalciferol 1,000 Unit Tab) 1,000 unit PO [facility] Last Admin: 06/29/20 20:26 Dose: 1,000 unit Documented by: Enoxaparin Sodium (Enoxaparin 40 Mg/0.4 Ml Syringe) 40 mg SQ DAILY [facility] Last Admin: 06/29/20 07:16 Dose: 40 mg Documented by: Fluoxetine HCl (Fluoxetine Hcl 10 Mg Cap) 30 mg PO [facility] Last Admin: 06/29/20 20:26 Dose: 30 mg Documented by: Ceftriaxone Sodium 2 gm/ (Sodium Chloride) 50 mls @ 100 mls/hr IVPB HS [facility] Last Admin: 06/29/20 20:27 Dose: 100 mls/hr Documented by: Insulin Aspart (Insulin Aspart (Novolog) 100 Unit/Ml Vial) 0 unit SQ ACHS [facility]; Protocol Last Admin: 06/29/20 17:37 Dose: Not Given Documented by: Metformin HCl (Metformin 500 Mg Tab) 500 mg PO BID [facility] Last Admin: 06/29/20 20:27 Dose: 500 mg Documented by: Naloxone HCl (Naloxone 0.4 Mg/Ml 1 Ml Vial) 0.2 mg IV Q2M PRN PRN Reason: Opioid Reversal Ondansetron HCl (Ondansetron 4 Mg/2 Ml Vial) 4 mg IVP Q6HR PRN PRN Reason: Nausea And Vomiting Last Admin: 06/27/20 17:05 Dose: 4 mg Documented by: Past medical history to include: 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 Patient's sister Rachael's the POA. Does use a walker Family history: Reviewed, noncontributory to presentation Physical examination: VITAL SIGNS: 97.6, 77, 18, 117/50, 94% on 2 L GENERAL: BMI 32.9, reclining in bed, awake EYES: Pupils equal. Conjunctiva normal. HEENT: External appearance of nose and ears normal, oral cavity grossly normal. NECK: JVD not raised; masses not palpable. HEART: First and second heart sounds are normal; no edema. LUNGS: Respiratory rate normal; decreased breath sounds ABDOMEN: Soft, nontender, liver spleen not palpable, no masses palpable. PSYCH: Patient can answer some questionsl. INVESTIGATIONS, reviewed in the clinical context: June 29: Potassium 4.8 creatinine 1.3 June 28: Count 4.4 hemoglobin 11.2 platelets 71 potassium 4.4 creatinine 1.6 White count 7.5 hemoglobin 12.3 platelets 82 potassium 4.9 BUN 33 creatinine 1.37 UA positive for leukoesterase nitrite WBC Coronavirus P/Cr-not detected EKG tracing personally reviewed by me-normal sinus rhythm, PVC Urine culture showing gram-negative bacilli Left culture growing gram-negative bacilli Assessment: -Acute UTI with cystitis, with sepsis with blood cultures growing E. 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 Improving. Continue medications. Discussed the sister. White count of the 24 hours.
[2020-06-29] MEDS ORDERED: BENZOCAINE/MENTHOL LOZENG 1 EACH LOZENGE MUCOUS MEM PRN (21:01)
[2020-06-29 21:27] LABS: Glucose,Whole Blood 153 mg/dL (75-99)
[2020-06-30 06:58] LABS: Glucose,Whole Blood 112 mg/dL (75-99)
[2020-06-30] MEDS: metFORMIN 500 MG TAB PO SCH ×2 (07:44→20:22)
[2020-06-30] MEDS: ENOXAPARIN 40 MG/0.4 ML SYRINGE SQ SCH (07:44)
[2020-06-30] MEDS: INSULIN ASPART (NovoLOG) 100 UNIT/ML VIAL SQ SCH ×4 (08:03→21:15)
[2020-06-30] MEDS: carvediloL 3.125 MG TAB PO SCH ×2 (08:03→20:22)
[2020-06-30 11:23] LABS: Glucose,Whole Blood 111 mg/dL (75-99)
[2020-06-30] MEDS: ONDANSETRON 4 MG/2 ML VIAL IVP PRN (12:56)
[2020-06-30] MEDS ORDERED: TRIMETHOBENZAMIDE 300 MG CAP PO PRN (15:13)
[2020-06-30 17:09] LABS: Glucose,Whole Blood 135 mg/dL (75-99)
[2020-06-30] MEDS: ONDANSETRON 4 MG/2 ML VIAL IVP SCH ×2 (17:35→23:00)
--- NOTE | 2020-06-30 17:40 | XR ---
EXAMINATION TYPE: XR abdomen 2V DATE OF EXAM: 06/30/2020 CLINICAL DATA: 60-year-old female with vomiting, PHH COMPARISON: None FINDINGS: No evidence for free intraperitoneal air. No dilated small bowel. Nonspecific air-fluid levels in the right lower quadrant. There is moderate stool burden, possibly large in the left side of the colon. Redundant sigmoid and p roximal transverse colon. A couple phleboliths in the left side of the pelvis. Levocardia and axis. IMPRESSION: 1. Overall nonobstructive bowel gas pattern. There is moderate stool burden, possibly large burden in the left side of the colon. Redundant sigmoid and proximal transverse colon. 2. Some nonspecific air-fluid levels in the right lower quadrant could reflect a regional ileus or en teritis.
[2020-06-30] MEDS: PANTOPRAZOLE 40 MG/10 ML VIAL IVP SCH (20:21)
[2020-06-30] MEDS: ATORVASTATIN 20 MG TAB PO SCH (20:22)
[2020-06-30] MEDS: FLUoxetine HCL 10 MG CAP PO SCH (20:22)
[2020-06-30] MEDS: ASPIRIN 81 MG PO SCH (20:22)
[2020-06-30] MEDS: CHOLECALCIFEROL 1,000 UNIT TAB PO SCH (20:22)
[2020-06-30 21:13] LABS: Glucose,Whole Blood 160 mg/dL (75-99)
--- NOTE | 2020-06-30 21:39 | P.PN ---
Progress Note - Text Progress Note Date: 06/30/20 Chief Complaint: Fever History of presenting complaint: This is a pleasant 60-year-old patient of Dr. Key. 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 Most of the history is obtained by the sister the bedside. Patient is able tonsil simple questions. Patient lives with her mother. sister-Rachael's Renea POA. Does use a walker. Patient does have a hyper gag reflux. Often times will vomit. Last night she noted episode where she again vomited. Going to the bathroom she fell down. Was unable to get up. 2 in the morning the mother called patient's sister she and her was unable to pick of the patient. EMS recorded a fever of 102.3. Patient urine came back rather infected appearing. Patient has a slight cough which is not new. Denies shortness of breath. Admitted with acute UTI with cystitis. Started on ceftriaxone. Today-has been tolerating a diet. Plan was to discharge the patient home. Later patient started having again vomiting. Projectile. GI consulted. Review of systems: Was done for constitutional, cardiovascular, GI, pulmonary. relevant finding as above Active Medications Acetaminophen (Acetaminophen Tab 325 Mg Tab) 650 mg PO Q6HR PRN PRN Reason: Fever and/ or Pain Last Admin: 06/28/20 21:23 Dose: 650 mg Documented by: Aspirin (Aspirin 81 Mg) 81 mg PO [facility] Last Admin: 06/30/20 20:22 Dose: 81 mg Documented by: Atorvastatin Calcium (Atorvastatin 20 Mg Tab) 20 mg PO [facility] Last Admin: 06/30/20 20:22 Dose: 20 mg Documented by: Benzocaine/Menthol (Benzocaine/Menthol Lozeng 1 Each Lozenge) 1 each MUC[facility] MEM Q4HR PRN PRN Reason: Cough Last Admin: 06/29/20 22:01 Dose: 1 each Documented by: Carvedilol (Carvedilol 3.125 Mg Tab) 3.125 mg PO BID [facility] Last Admin: 06/30/20 20:22 Dose: 3.125 mg Documented by: Cholecalciferol (Cholecalciferol 1,000 Unit Tab) 1,000 unit PO [facility] Last Admin: 06/30/20 20:22 Dose: 1,000 unit Documented by: Enoxaparin Sodium (Enoxaparin 40 Mg/0.4 Ml Syringe) 40 mg SQ DAILY [facility] Last Admin: 06/30/20 07:44 Dose: 40 mg Documented by: Fluoxetine HCl (Fluoxetine Hcl 10 Mg Cap) 30 mg PO [facility] Last Admin: 06/30/20 20:22 Dose: 30 mg Documented by: Ceftriaxone Sodium 2 gm/ (Sodium Chloride) 50 mls @ 100 mls/hr IVPB [facility] Last Admin: 06/30/20 20:21 Dose: 100 mls/hr Documented by: Insulin Aspart (Insulin Aspart (Novolog) 100 Unit/Ml Vial) 0 unit SQ [facility]; Protocol Last Admin: 06/30/20 21:15 Dose: 1 unit Documented by: Metformin HCl (Metformin 500 Mg Tab) 500 mg PO BID [facility] Last Admin: 06/30/20 20:22 Dose: 500 mg Documented by: Naloxone HCl (Naloxone 0.4 Mg/Ml 1 Ml Vial) 0.2 mg IV Q2M PRN PRN Reason: Opioid Reversal Ondansetron HCl (Ondansetron 4 Mg/2 Ml Vial) 4 mg IVP Q6HR [facility] Last Admin: 06/30/20 17:35 Dose: 4 mg Documented by: Pantoprazole Sodium (Pantoprazole 40 Mg/10 Ml Vial) 40 mg IVP BID [facility] Last Admin: 06/30/20 20:21 Dose: 40 mg Documented by: Trimethobenzamide HCl (Trimethobenzamide 300 Mg Cap) 300 mg PO TID PRN PRN Reason: Nausea And Vomiting Past medical history to include: 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 Patient's sister Rachael's the POA. Does use a walker Family history: Reviewed, noncontributory to presentation Physical examination: VITAL SIGNS: 98.4, 16, 123/64, 95% room air GENERAL: BMI 32.9, reclining in bed, awake EYES: Pupils equal. Conjunctiva normal. HEENT: External appearance of nose and ears normal, oral cavity grossly normal. NECK: JVD not raised; masses not palpable. HEART: First and second heart sounds are normal; no edema. LUNGS: Respiratory rate normal; decreased breath sounds ABDOMEN: Soft, nontender, liver spleen not palpable, no masses palpable. PSYCH: Patient can answer some questionsl. INVESTIGATIONS, reviewed in the clinical context: June 29: Potassium 4.8 creatinine 1.3 June 28: Count 4.4 hemoglobin 11.2 platelets 71 potassium 4.4 creatinine 1.6 White count 7.5 hemoglobin 12.3 platelets 82 potassium 4.9 BUN 33 creatinine 1.37 UA positive for leukoesterase nitrite WBC Coronavirus P/Cr-not detected EKG tracing personally reviewed by me-normal sinus rhythm, PVC Urine culture showing gram-negative bacilli Left culture growing gram-negative bacilli Assessment: -Acute UTI with cystitis, with sepsis with blood cultures growing E. coli -Recurrent vomiting episodic. Possible from hyper gag reflex. Underlying reflux possible. 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 GI consulted. Continue current medications. Repeat labs in the morning.add PPI.
--- NOTE | 2020-06-30 22:32 | P.CONS ---
History of Present Illness - Reason for Consult Consult date: 06/30/20 Nausea and vomiting Requesting physician: Armaan Montiel - Chief Complaint Mechanical fall, UTI - History of Present Illness 60-year-old female with a medical history significant for developmental delay, diabetes mellitus, hyperlipidemia and hypertension who presented to the hospital for evaluation of a mechanical fall and patient was found to have a urinary tract infection for which she has received treatment. The patient subsequently has had episodes of intractable nausea and vomiting and GI was consulted for further evaluation. Of note history has been taken and discussion with the medical team, on review of the medical record and discussion with the patient's sister who is seated bedside. The patient's sister reports that at baseline the patient will have episodes of gagging. She feels that symptoms are different currently. She stating that a few hours after eating the patient will have multiple episodes of nausea and vomiting. She reports that these are projectile. She does not feel that her sister suffering from any abdominal pain. They deny any sick contacts prior to development of these symptoms. She has had testing for coronavirus which is been negative on 2 occasions. Other laboratory evaluation significant for WBC 4.4, hemoglobin 11.2, platelet count 71,000, total bilirubin 0.3, alkaline phosphatase 70, AST 20 and ALT 19. The patient had an x-ray for evaluation of the nausea and vomiting significant for a moderate left colonic stool burden. On questioning the patient's sister states she has not had any endoscopic evaluation with either EGD or colonoscopy in the past. At baseline the patient's sister reports that she suffers from constipation and her mother will give her MiraLAX to help with bowel movements. Currently she is reporting the bowel movements have been somewhat loose which she attributes to the antibiotics. No signs or symptoms of GI bleeding reported. 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) Past Medical History Past Medical History: Diabetes Mellitus, Hyperlipidemia, Hypertension History of Any Multi-Drug Resistant Organisms: None Reported Past Surgical History: No Surgical Hx Reported Past Psychological History: Anxiety, Depression Smoking Status: Never smoker Past Alcohol Use History: None Reported Past Drug Use History: None Reported - Past Family History Mother Family Medical History: No Reported History Father Family Medical History: Congestive Heart Failure (CHF), Coronary Artery Disease (CAD) Medications and Allergies Home Medications Medication Instructions Recorded Confirmed Type Aspirin [Adult Low Dose Aspirin EC] 81 mg PO HS 06/27/20 06/27/20 History Atorvastatin [Lipitor] 20 mg PO HS 06/27/20 06/27/20 History Cholecalciferol [Vitamin D3 (25 1,000 unit PO HS 06/27/20 06/27/20 History Mcg = 1000 Iu)] FLUoxetine HCL [PROzac] 30 mg PO HS 06/27/20 06/27/20 History carvediloL [Coreg] 3.125 mg PO BID 06/27/20 06/27/20 History metFORMIN HCL ER [Glucophage Xr] 1,000 mg PO HS 06/27/20 06/27/20 History Ciprofloxacin HCl [Cipro] 500 mg PO Q12HR #20 tablet 06/29/20 Rx Allergies Allergy/AdvReac Type Severity Reaction Status Date / Time No Known Allergies Allergy Verified 06/27/20 07:28 Physical Exam Vitals: Vital Signs Temp Pulse Resp BP Pulse Ox 06/30/20 11:16 98.4 F 16 123/64 95 06/30/20 08:17 95 06/30/20 05:00 99.5 F 72 16 117/66 95 06/29/20 20:00 98.1 F 74 18 132/78 95 06/29/20 16:12 98.5 F 74 18 130/50 95 Intake and Output 06/29/20 06/30/20 06/30/20 22:59 06:59 14:59 Other: Voiding Method Toilet Toilet Diaper Diaper Incontinent Incontinent # Voids 5 2 1 # Bowel Movements 3 On physical examination, patient appears comfortable in no apparent distress. HEAD: Normocephalic, atraumatic. EYES: No scleral icterus. No conjunctival injection. MOUTH: No lesions, tongue midline. NECK: Trachea midline, no gross abnormalities. CHEST: Clear to auscultation with no wheezing or rhonchi appreciated. HEART: Regular rate and rhythm. ABDOMEN: Soft, nontender to palpation. Bowel sounds are positive. No organomegaly. No guarding or rigidity. EXTREMITIES: No pedal edema. SKIN: No rashes, no jaundice. NEUROLOGIC: Alert but nonverbal secondary to developmental delay from ch romosomal abnormality. Results CBC & Chem 7: 06/28/20 04:54 06/29/20 05:33 Labs: Abnormal Lab Results - Last 24 Hours (Table) 06/29/20 06/29/20 06/30/20 Range/Units 17:16 21:26 06:46 POC Glucose (mg/dL) 126 H 153 H 112 H (75-99) mg/dL 06/30/20 Range/Units 11:21 POC Glucose (mg/dL) 111 H (75-99) mg/dL Microbiology - Last 24 Hours (Table) 06/29/20 05:33 Blood Culture - Preliminary Blood No Growth after 24 hours 06/27/20 04:48 Blood Culture Gram Stain - Final Blood Blood Culture - Final Escherichia coli 06/27/20 05:19 Urine Culture - Final Urine,Catheterized Escherichia coli Abdominal x-ray: report reviewed (X-ray of the abdomen with moderate stool burden) Assessment and Plan (1) Nausea and vomiting Narrative/Plan: 61-year-old female with multiple medical comorbidities including developmental delay (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 During her stay she developed episodes of nausea and vomiting. She does have a heightened gag reflex at baseline. However patient's sister reports episodes of intractable nausea and vomiting of food which she is eating a few hours after eating. At baseline she suffers from chronic constipation and is given MiraLAX at home. Patient's sister feels her bowel movements have been watery, however x-ray of the abdomen significant for moderate left colonic stool burden. No prior endoscopic history. Unclear etiology, may be related to underlying bacteremia from UTI, medication side effect, worsen constipation with patient possibly suffering from overflow incontinence, or other etiology. Current Visit: Yes Status: Acute Code(s): R11.2 - NAUSEA WITH VOMITING, UNSPECIFIED SNOMED Code(s): 81788229 (2) Chronic constipation Current Visit: Yes Status: Acute Code(s): K59.09 - OTHER CONSTIPATION SNOMED Code(s): 796700382 Plan: Supportive care Okay for diet as tolerated Protonix twice daily added Zofran changed to [id number] Tigan added as needed for breakthrough nausea X-ray of the abdomen reviewed, given findings of moderate stool burden if patient is not improved tomorrow would recommend tap water enema and reiniti ation of bowel regimen, her sister reports that she uses MiraLAX in the outpatient setting on an as-needed basis, this should likely be continued daily given her overall debility and likely chronic constipation The case was discussed with the patient's sister who inserted herbal power of trade mark attorney at length Thank you for allowing us to participate in the care of the patient
--- NOTE | 2020-06-30 22:38 | PN ---
PROGRESS NOTE DATE OF SERVICE: 06/30/2020 REASON FOR FOLLOWUP: E coli UTI and bacteremia. INTERVAL HISTORY: The patient is currently afebrile, has been breathing comfortably. Apparently the patient did have an episode of projectile vomiting, for which her discharge has been put on hold. The patient is not complaining of abdominal pain, and no diarrhea has been reported. PHYSICAL EXAMINATION: Blood pressure is 139/87, pulse of 75, temperature 98.3. She is 93% on room air. General description is a middle-aged female up in the chair in no distress. RESPIRATORY SYSTEM: Unlabored breathing. Clear to auscultation anteriorly. HEART: S1, S2. Regular rate and rhythm. ABDOMEN: Soft. No tenderness. LABS: Reviewed. DIAGNOSTIC IMPRESSION AND PLAN: Patient with Escherichia coli bacteremia secondary to urinary source in this patient currently covered with Rocephin. Transition to oral Cipro. This will finish a 2-week course of therapy. Family at the bedside. Questions were answered. MMODL / IJN: [id number] /
[2020-07-01] MEDS: ONDANSETRON 4 MG/2 ML VIAL IVP SCH ×2 (05:09→12:51)
[2020-07-01 07:22] LABS: Glucose,Whole Blood 112 mg/dL (75-99)
[2020-07-01] MEDS: INSULIN ASPART (NovoLOG) 100 UNIT/ML VIAL SQ SCH ×2 (07:50→12:39)
[2020-07-01] MEDS ORDERED: CIPROFLOXACIN HCL 500 MG TAB PO SCH (09:00)
[2020-07-01] MEDS: metFORMIN 500 MG TAB PO SCH (09:28)
[2020-07-01] MEDS: carvediloL 3.125 MG TAB PO SCH (09:29)
[2020-07-01] MEDS: PANTOPRAZOLE 40 MG/10 ML VIAL IVP SCH (09:31)
[2020-07-01] MEDS: ENOXAPARIN 40 MG/0.4 ML SYRINGE SQ SCH (09:32)
--- NOTE | 2020-07-01 10:41 | P.PN ---
Subjective Progress Note Date: 07/01/20 HISTORY OF PRESENT ILLNESS This is a 60-year-old female who presented to the hospital with UTI a nd bacteremia, cultures positive for E. coli. Patient is currently treated with Rocephin 2 g IV piggyback daily with plan for oral antibiotics at discharge. Attending has transition antibiotics to Cipro oral. Patient had vomiting yesterday but was able to eat dinner and breakfast this morning without vomiting. Patient has been afebrile, heart rate 73, blood pressure 154/70, pulse ox 96% on room air Creatinine 1.3. Urine and blood culture are E. coli. Renal ultrasound revealed no hydronephrosis. PHYSICAL EXAMINATION Gen: This is a 60-year-old female. She is resting bed and appears to be comfortable. HEENT: Head is atraumatic, normocephalic. Pupils equal, round. Sclerae is anicteric. NECK: Supple. No JVD. No lymphadenopathy. LUNGS: Clear to auscultation. No wheezes or rhonchi. No intercostal retractions. HEART: Regular rate and rhythm. No murmur. ABDOMEN: Soft. Bowel sounds are present. No masses. No tenderness. EXTREMITIES: No pedal edema. No calf tenderness. ASSESSMENT E. coli bacteremia E. coli UTI PLAN Continue ciprofloxacin for 10 day course The above dictated assessment and findings were discussed with Dr. Villafana. The impression and plan of care have been directed as dictated. Pearl Owen nurse practitioner acting as scribe for Dr. Villafana. Objective - Vital Signs Vital signs: Vital Signs Temp 98.6 F 07/01/20 04:37 Pulse 73 07/01/20 04:37 Resp 16 07/01/20 04:37 BP 154/70 07/01/20 04:37 Pulse Ox 96 07/01/20 04:37 Intake & Output 06/30/20 07/01/20 07/01/20 18:59 06:59 18:59 Intake Total 400 420 Output Total 0 Balance 400 420 Intake: Oral 400 420 Output: Oral Regurgitation 0 Other: Voiding Method Toilet Toilet Diaper Diaper Incontinent Incontinent # Voids 1 2 # Bowel Movements 1 1 - Labs CBC & Chem 7: 06/28/20 04:54 06/29/20 05:33 Labs: Abnormal Lab Results - Last 24 Hours (Table) 06/30/20 06/30/20 06/30/20 Range/Units 11:21 16:52 21:11 POC Glucose (mg/dL) 111 H 135 H 160 H (75-99) mg/dL 07/01/20 Range/Units 07:20 POC Glucose (mg/dL) 112 H (75-99) mg/dL Microbiology - Last 24 Hours (Table) 06/29/20 05:33 Blood Culture - Preliminary Blood No Growth after 48 hours 06/27/20 04:48 Blood Culture Gram Stain - Final Blood Blood Culture - Final Escherichia coli
[2020-07-01 11:29] LABS: Glucose,Whole Blood 144 mg/dL (75-99)
[2020-07-01 11:44] VITALS: BP 125/63; PULSE 65; RESP 17; TEMP 98.2
[2020-07-01] MEDS ORDERED: bisacodyL 10 MG SUPP RECTAL STA (12:12)
[2020-07-01] MEDS ORDERED: polyethylene glycoL 3350 17 GM POWD.PACK PO SCH (12:15)
--- NOTE | 2020-07-01 13:35 | P.PN ---
Subjective Progress Note Date: 07/01/20 Objective - Vital Signs Vital signs: Vital Signs Temp 98.6 F 07/01/20 04:37 Pulse 73 07/01/20 04:37 Resp 16 07/01/20 04:37 BP 154/70 07/01/20 04:37 Pulse Ox 96 07/01/20 04:37 Intake & Output 06/30/20 07/01/20 07/01/20 18:59 06:59 18:59 Intake Total 400 420 Output Total 0 Balance 400 420 Intake: Oral 400 420 Output: Oral Regurgitation 0 Other: Voiding Method Toilet Toilet Diaper Diaper Incontinent Incontinent # Voids 1 2 # Bowel Movements 1 1 - Labs CBC & Chem 7: 06/28/20 04:54 06/29/20 05:33 Labs: Abnormal Lab Results - Last 24 Hours (Table) 06/30/20 06/30/20 06/30/20 Range/Units 11:21 16:52 21:11 POC Glucose (mg/dL) 111 H 135 H 160 H (75-99) mg/dL 07/01/20 Range/Units 07:20 POC Glucose (mg/dL) 112 H (75-99) mg/dL Microbiology - Last 24 Hours (Table) 06/29/20 05:33 Blood Culture - Preliminary Blood No Growth after 48 hours 06/27/20 04:48 Blood Culture Gram Stain - Final Blood Blood Culture - Final Escherichia coli Assessment and Plan (1) Nausea and vomiting Narrative/Plan: 61-year-old female with multiple medical comorbidities including developmental delay (she is nonverbal) secondary to chromosomal abnormality presented to the hospital due to mechanical fall and is receiving treatment for urinary tract infection. During her stay she developed episodes of nausea and vomiting. She does have a heightened gag reflex at baseline. However patient's sister reports episodes of intractable nausea and vomiting of food which she is eating a few hours after eating. At baseline she suffers from chronic constipation and is given MiraLAX at home. Patient's sister feels her bowel movements have been watery, however x-ray of the abdomen significant for moderate left colonic stool burden. No prior endoscopic history. Unclear etiology, may be related to underlying bacteremia from UTI, medication side effect, worsen constipation with patient possibly suffering from overflow incontinence, or other etiology. Patient's sister at the bedside and states patient has had no further vomiting after adjusting medication. She tolerated dinner and breakfast without any further episodes of nausea or vomiting. Current Visit: Yes Status: Acute Code(s): R11.2 - NAUSEA WITH VOMITING, UNSPECIFIED SNOMED Code(s): 99643503 (2) Chronic constipation Current Visit: Yes Status: Acute Code(s): K59.09 - OTHER CONSTIPATION SNOMED Code(s): 026032437 Plan: Supportive care Okay for diet as tolerated Protonix twice daily added Zofran changed to [id number] Tigan added as needed for breakthrough nausea X-ray of the abdomen reviewed, given findings of moderate stool burden if patient is not improved tomorrow would recommend tap water enema and reinitiation of bowel regimen, her sister reports that she uses MiraLAX in the outpatient setting on an as-needed basis, this should likely be continued daily given her overall debility and likely chronic constipation The case was discussed with the patient's sister who is her power of insurance defense attorney at length Tapwater enema ordered Would recommend discharge home with Protonix 40 mg daily, Zofran as needed, and MiraLAX daily Thank you for allowing us to participate in the care of the patient, patient may be discharged home from a gastroenterology standpoint. Follow-up as needed. Dr. Torrez I agree with the dictator's note, documented as a scribe by Anushka MALONE .
--- NOTE | 2020-07-03 00:09 | P.DS ---
Providers Date of admission: 06/27/20 06:29 Expected date of discharge: 07/01/20 Attending physician: Armaan Montiel Consults: 06/27/20 06:29 Consult Physician Routine Consulting Provider: Aristides Villafana Consult Reason/Comments: uti Do you want consulting provider notified?: Already Contacted 06/30/20 13:16 Consult Physician Routine Consulting Provider: Jessica Zendejas Consult Reason/Comments: vomiting Do you want consulting provider notified?: Already Contacted Primary care physician: Luca Key [facility] Course: Chief Complaint: Fever History of presenting complaint: This is a pleasant 60-year-old patient of Dr. Key. 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 Most of the history is obtained by the sister the bedside. Patient is able tonsil simple questions. Patient lives with her mother. sister-Rachael's Renea DAVIS. Does use a walker. Patient does have a hyper gag reflux. Often times will vomit. Last night she noted episode where she again vomited. Going to the bathroom she fell down. Was unable to get up. 2 in the morning the mother called patient's sister she and her was unable to pick of the patient. EMS recorded a fever of 102.3. Patient urine came back rather infected appearing. Patient has a slight cough which is not new. Denies shortness of breath. Admitted with acute UTI with cystitis. Started on ceftriaxone. Responded well. Patient had some vomiting. Seen by GI. Responded well to enema. Today-care was discussed with the sister the bedside. Told to keep patient in upright position at least for was after a meal. Cleared by GI. Consultation: Dr. Bro from GI Past medical history to include: 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 Patient's sister Rachael's the POA. Does use a walker Family history: Reviewed, noncontributory to presentation Physical examination: VITAL SIGNS: 98.2, 65, 17, 125 a 63, 96% room air GENERAL: BMI 32.9, reclining in bed, awake EYES: Pupils equal. Conjunctiva normal. HEENT: External appearance of nose and ears normal, oral cavity grossly normal. NECK: JVD not raised; masses not palpable. HEART: First and second heart sounds are normal; no edema. LUNGS: Respiratory rate normal; decreased breath sounds ABDOMEN: Soft, nontender, liver spleen not palpable, no masses palpable. PSYCH: Patient can answer some questions. INVESTIGATIONS, reviewed in the clinical context: June 29: Potassium 4.8 creatinine 1.3 June 28: Count 4.4 hemoglobin 11.2 platelets 71 potassium 4.4 creatinine 1.6 White count 7.5 hemoglobin 12.3 platelets 82 potassium 4.9 BUN 33 creatinine 1.37 UA positive for leukoesterase nitrite WBC Coronavirus P/Cr-not detected EKG tracing personally reviewed by me-normal sinus rhythm, PVC Urine culture showing gram-negative bacilli Left culture growing gram-negative bacilli Assessment: -Acute UTI with cystitis, with sepsis with blood cultures growing E. coli -Recurrent vomiting episodic. Possible from hyper gag reflex. 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 -Obstipation-responded well to enema patient placed on Metamucil Disposition: Home Patient Condition at Discharge: Stable Plan - Discharge Summary Discharge Rx Participant: No New Discharge Prescriptions: New Ciprofloxacin HCl [Cipro] 500 mg PO Q12HR #20 tablet Continue metFORMIN HCL ER [Glucophage Xr] 1,000 mg PO HS carvediloL [Coreg] 3.125 mg PO BID Cholecalciferol [Vitamin D3 (25 Mcg = 1000 Iu)] 1,000 unit PO HS FLUoxetine HCL [PROzac] 30 mg PO HS Atorvastatin [Lipitor] 20 mg PO HS Aspirin [Adult Low Dose Aspirin EC] 81 mg PO HS Discharge Medication List Aspirin [Adult Low Dose Aspirin EC] 81 mg PO HS 06/27/20 [History] Atorvastatin [Lipitor] 20 mg PO HS 06/27/20 [History] Cholecalciferol [Vitamin D3 (25 Mcg = 1000 Iu)] 1,000 unit PO HS 06/27/20 [History] FLUoxetine HCL [PROzac] 30 mg PO HS 06/27/20 [History] carvediloL [Coreg] 3.125 mg PO BID 06/27/20 [History] metFORMIN HCL ER [Glucophage Xr] 1,000 mg PO HS 06/27/20 [History] Ciprofloxacin HCl [Cipro] 500 mg PO Q12HR #20 tablet 06/29/20 [Rx] Follow up Appointment(s)/Referral(s): Luca Key MD [Primary Care Provider] - 07/08/20 9:00 am (You will see Rebekah.) Patient Instructions/Handouts: Ciprofloxacin (By mouth), Urinary Tract Infection in Women (DC), Bacteremia (DC) Activity/Diet/Wound Care/Special Instructions: up in chair for 3 hours after meals elevate head of bed while sleeping Discharge Disposition: HOME SELF-CARE
== END 2020-07-01 17:13 | disposition home or self-care (01) | DRG 871 ==
LOC: EC 04:16 → 6NMEDSUR 06:29
PROVIDERS: ADMIT Hospitalist; ATTEND Hospitalist
DX: A41.51 Sepsis due to Escherichia coli [E. coli] (principal); N17.0 Acute kidney failure with tubular necrosis; D69.6 Thrombocytopenia, unspecified; D72.810 Lymphocytopenia; E11.9 Type 2 diabetes mellitus without complications; E78.5 Hyperlipidemia, unspecified; F32.9 Major depressive disorder, single episode, unspecified; N30.91 Cystitis, unspecified with hematuria; K59.09 Other constipation; Z20.822 Contact with and (suspected) exposure to COVID-19; F41.9 Anxiety disorder, unspecified; I10 Essential (primary) hypertension; K21.9 Gastro-esophageal reflux disease without esophagitis; J39.2 Other diseases of pharynx; R26.9 Unspecified abnormalities of gait and mobility; Q99.9 Chromosomal abnormality, unspecified; Z79.82 Long term (current) use of aspirin; Z79.899 Other long term (current) drug therapy; Z79.84 Long term (current) use of oral hypoglycemic drugs; Z82.49 Family history of ischemic heart disease and other diseases of the circulatory system
CPT/HCPCS: 36415; 71045; 74019; 76770; 80048; 80053; 81001; 83605; 83615; 83735; 84145; 85025; 85610; 85730; 86140; 87040; 87077; 87086; 87186; 87635; 93005; 94760; 96365; 96375; 99285

== ENCOUNTER 2021-12-06 15:40 | Inpatient (IN) | payer MEDICARE, BC, OTHER ==
--- NOTE | 2021-12-06 16:51 | ED ---
General Adult HPI - General Chief complaint: Extremity Injury, Lower Stated complaint: Hip pain Time Seen by Provider: 12/06/21 15:48 Source: family, EMS, RN notes reviewed, old records reviewed Mode of arrival: EMS Limitations: language barrier - History of Present Illness Initial comments: Patient is a 61-year-old female with past medical history remarkable for learning disability, diabetes, hypertension, kyphosis who presents to the emergency department following multiple falls at home. Lives at home with her mother who is the primary caregiver. Patient does have a history of UTIs. Over the last 3-4 days has had multiple falls which are witnessed in her suspected to be secondary to weakness versus loss of balance. Uncertain if she hit her head. Denied loss of consciousness. Patient is not on blood thinners. Patient is a difficult historian, however only complains of right knee pain as well as bilateral hip pain. His no other acute complaints at this time. Was brought in by family members via EMS for further evaluation.They're concerned for possible UTI.Since the falls, patient does ambulate intermittently between them, however is complaining of soreness. - Related Data Home Medications Medication Instructions Recorded Confirmed Aspirin [Adult Low Dose Aspirin EC] 81 mg PO HS 06/27/20 12/06/21 Atorvastatin [Lipitor] 20 mg PO HS 06/27/20 12/06/21 FLUoxetine HCL [PROzac] 30 mg PO HS 06/27/20 12/06/21 carvediloL [Coreg] 3.125 mg PO BID 06/27/20 12/06/21 metFORMIN HCL ER [Glucophage XR] 1,000 mg PO HS 06/27/20 12/06/21 Cholecalciferol [Vitamin D3 (25 50 mcg PO HS 12/06/21 12/06/21 Mcg = 1000 Iu)] Losartan Potassium [Cozaar] 100 mg PO HS 12/06/21 12/06/21 Allergies Allergy/AdvReac Type Severity Reaction Status Date / Time No Known Allergies Allergy Verified 12/06/21 18:24 Review of Systems ROS Statement: Those systems with pertinent positive or pertinent negative responses have been documented in the HPI. Review of Systems: CONST: Denies fever EYES: Denies blurry vision ENT: Denies nasal congestion C/V: Denies Chest pain RESP: Denies shortness of breath GI: Denies abdominal pain : Denies dysuria SKIN: Denies rash. MSK: Endorses right knee pain. NEURO: Denies headache ROS Other: All systems not noted in ROS Statement are negative. Past Medical History Past Medical History: Diabetes Mellitus, Hyperlipidemia, Hypertension Additional Past Medical History / Comment(s): kyphosis History of Any Multi-Drug Resistant Organisms: None Reported Past Surgical History: No Surgical Hx Reported Past Psychological History: Anxiety, Depression Smoking Status: Never smoker Past Alcohol Use History: None Reported Past Drug Use History: None Reported - Past Family History Mother Family Medical History: No Reported History Father Family Medical History: Congestive Heart Failure (CHF), Coronary Artery Disease (CAD) General Exam - General Exam Comments Initial Comments: General: Appears in no acute distress. HEAD: Normal with no signs of head trauma. EYES: PERRLA, EOMI, conjunctiva normal, no discharge. Pupils 3 mm and equal bilaterally. ENT: Hearing grossly intact, normal oropharynx. RESPIRATORY: Clear breath sounds bilaterally. No wheezes, rales, or rhonchi. C/V: Regular rate and rhythm. S1 and S2 auscultated, no edema, peripheral pulses 2+ and intact throughout ABD: Abd is soft, nontender, nondistended EXT: Normal range of motion, no obvious deformity. Bilateral knee tenderness to palpation and femur tenderness to palpation over the anterior aspect. Able to move all 4 extremities without issue. Pelvis is stable. Bilateral hip t enderness on palpation. Nonspecific midline cervical, thoracic, lumbar spine tenderness palpation which patient states may be old. No obvious step-offs or deformities. Patient does have a history of severe kyphosis. SKIN: No rashes or lesions observed on exposed skin. NEURO: Alert and oriented x2, which is her baseline per family. No focal neurological deficits. Difficult to obtain accurate neuro exam due to past medical history but she is moving all 4 extremities without pressure. Limitations: language barrier Course Vital Signs 12/06/21 12/06/21 12/06/21 15:45 16:56 19:00 Temperature 98.2 F Pulse Rate 73 70 74 Respiratory 17 18 18 Rate Blood Pressure 114/47 124/64 124/80 O2 Sat by Pulse 97 99 98 Oximetry 12/06/21 22:37 Temperature Pulse Rate Respiratory Rate Blood Pressure 109/59 O2 Sat by Pulse Oximetry Medical Decision Making - Medical Decision Making The patient's presentation and physical exam, I am concerned for what appears to be a fall with possible injury. We will obtain CTs of the spine and brain addition to plain films of the chest, legs, hip, knees. It does appear to have been a mechanical fall the patient does have a history of UTIs and therefore we'll obtain basic labs was Covid flu screening and urinalysis. Screening EKG will also be obtained. Family is in agreement this plan. Screening EKG shows no signs of acute ischemia. Laboratory studies are remarkable for an elevated BUN/creatinine of 41 and 1.47 which appear to be near her baseline, as it does appear she has a history of CK D. Urinalysis is consistent with a UTI. Covid and influenza are negative. Plain film imaging was negative for acute fracture or injury. CT imaging of the spine and head was negative for acute traumatic injury or intracranial process. There are chronic changes seen in all areas. On reevaluation, patient remains stable. Vital signs are within normal limits. I discussed results with the patient's sister and mother. They're looking for placement for the patient, she has become more difficult to take care of at home. I believe this is reasonable, and the patient does have an active UTI. Therefore we will admit. Patient will be admitted to observation. She is started on Rocephin. Blood cultures were ordered and sent in addition to urine culture. I spoke with the admitting HUANG Lisa of [facility] who accepted the patient. Patient was therefore admitted in stable condition. We'll continue IV antibiotics. - Lab Data Result diagrams: 12/06/21 17:06 12/06/21 17:06 Lab Results 12/06/21 12/06/21 12/06/21 Range/Units 17:06 17:06 17:06 WBC 5.0 (3.8-10.6) k/uL RBC 4.25 (3.80-5.40) m/uL Hgb 13.3 (11.4-16.0) gm/dL Hct 40.4 (34.0-46.0) % MCV 95.0 (80.0-100.0) fL MCH 31.2 (25.0-35.0) pg MCHC 32.8 (31.0-37.0) g/dL RDW 12.5 (11.5-15.5) % Plt Count 132 L (150-450) k/uL MPV 7.2 Neutrophils % 65 % Lymphocytes % 22 % Monocytes % 8 % Eosinophils % 2 % Basophils % 1 % Neutrophils # 3.2 (1.3-7.7) k/uL Lymphocytes # 1.1 (1.0-4.8) k/uL Monocytes # 0.4 (0-1.0) k/uL Eosinophils # 0.1 (0-0.7) k/uL Basophils # 0.0 (0-0.2) k/uL Sodium 142 (137-145) mmol/L Potassium 4.6 (3.5-5.1) mmol/L Chloride 109 H (98-107) mmol/L Carbon Dioxide 27 (22-30) mmol/L Anion Gap 6 mmol/L BUN 41 H (7-17) mg/dL Creatinine 1.47 H (0.52-1.04) mg/dL Est GFR (CKD-EPI)AfAm 43 (>60 ml/min/1.73 sqM) Est GFR (CKD-EPI)NonAf 38 (>60 ml/min/1.73 sqM) Glucose 122 H (74-99) mg/dL Calcium 9.3 (8.4-10.2) mg/dL Magnesium 2.2 (1.6-2.3) mg/dL Total Bilirubin 0.3 (0.2-1.3) mg/dL AST 20 (14-36) U/L ALT 18 (4-34) U/L Alkaline Phosphatase 111 (38-126) U/L Total Protein 6.3 (6.3-8.2) g/dL Albumin 3.8 (3.5-5.0) g/dL Urine Color Yellow Urine Appearance Cloudy H (Clear) Urine pH 6.0 (5.0-8.0) Ur Specific [place] 1.017 (1.001-1.035) Urine Protein Trace H (Negative) Urine Glucose (UA) Negative (Negative) Urine Ketones Negative (Negative) Urine Blood Moderate H (Negative) Urine Nitrite Negative (Negative) Urine Bilirubin Negative (Negative) Urine Urobilinogen <2.0 (<2.0) mg/dL Ur Leukocyte Esterase Large H (Negative) Urine RBC 16 H (0-5) /hpf Urine WBC 60 H (0-5) /hpf Ur Squamous Epith Cells 4 (0-4) /hpf Urine Mucus Rare H (None) /hpf Coronavirus (PCR) (Not Detectd) Influenza Type A RNA (Not Detectd) Influenza Type B (PCR) (Not Detectd) 12/06/21 12/06/21 Range/Units 17:06 17:06 WBC (3.8-10.6) k/uL RBC (3.80-5.40) m/uL Hgb (11.4-16.0) gm/dL Hct (34.0-46.0) % MCV (80.0-100.0) fL MCH (25.0-35.0) pg MCHC (31.0-37.0) g/dL RDW (11.5-15.5) % Plt Count (150-450) k/uL MPV Neutrophils % % Lymphocytes % % Monocytes % % Eosinophils % % Basophils % % Neutrophils # (1.3-7.7) k/uL Lymphocytes # (1.0-4.8) k/uL Monocytes # (0-1.0) k/uL Eosinophils # (0-0.7) k/uL Basophils # (0-0.2) k/uL Sodium (137-145) mmol/L Potassium (3.5-5.1) mmol/L Chloride (98-107) mmol/L Carbon Dioxide (22-30) mmol/L Anion Gap mmol/L BUN (7-17) mg/dL Creatinine (0.52-1.04) mg/dL Est GFR (CKD-EPI)AfAm (>60 ml/min/1.73 sqM) Est GFR (CKD-EPI)NonAf (>60 ml/min/1.73 sqM) Glucose (74-99) mg/dL Calcium (8.4-10.2) mg/dL Magnesium (1.6-2.3) mg/dL Total Bilirubin (0.2-1.3) mg/dL AST (14-36) U/L ALT (4-34) U/L Alkaline Phosphatase (38-126) U/L Total Protein (6.3-8.2) g/dL Albumin (3.5-5.0) g/dL Urine Color Urine Appearance (Clear) Urine pH (5.0-8.0) Ur Specific [place] (1.001-1.035) Urine Protein (Negative) Urine Glucose (UA) (Negative) Urine Ketones (Negative) Urine Blood (Negative) Urine Nitrite (Negative) Urine Bilirubin (Negative) Urine Urobilinogen (<2.0) mg/dL Ur Leukocyte Esterase (Negative) Urine RBC (0-5) /hpf Urine WBC (0-5) /hpf Ur Squamous Epith Cells (0-4) /hpf Urine Mucus (None) /hpf Coronavirus (PCR) Not Detected (Not Detectd) Influenza Type A RNA Not Detected (Not Detectd) Influenza Type B (PCR) Not Detected (Not Detectd) - EKG Data -: EKG Interpreted by Me EKG Comments: 12-lead Electrocardiogram Interpretation Note EKG was reviewed and interpreted by myself. 12-lead ECG performed at 1738 is interpreted by me as revealing normal sinus rhythm with PVC present at a rate of 64 beats per minute. [place] is normal. [place] interval is 180 ms, QRS duration is 102 ms, QTc is 418 ms.. There were no ST or T wave abnormalities to suggest myocardial ischemia or injury. R wave progression across the precordium was satisfactory. By my interpretation this EKG is non-diagnostic for acute ischemia. Disposition Clinical Impression: UTI (urinary tract infection) Disposition: ADMITTED IP TO THIS HOSP Condition: Stable Time of Disposition: 18:15
--- NOTE | 2021-12-06 17:24 | XR ---
EXAMINATION TYPE: XR Hip Bilateral and AP pelvis DATE OF EXAM: 12/06/2021 COMPARISON: NONE HISTORY: Pain TECHNIQUE: 5 views FINDINGS: The pelvic ring is intact. Proximal femurs are intact. There is minor acetabular spurring. No fracture seen. Sacroiliac joints are intact. IMPRESSION: Minor degenerative changes in the hip joints. No fracture seen.
--- NOTE | 2021-12-06 17:25 | XR ---
EXAMINATION TYPE: XR knee complete bilateral DATE OF EXAM: 12/06/2021 COMPARISON: NONE HISTORY: Pain TECHNIQUE: 3 views each knee FINDINGS: There is bilateral narrowing of the medial joint spaces of the knees. There is more severe narrowing of the right knee joint space. There is sclerosis and subchondral cystic changes on both si thomas of the medial joint space of the right knee. No evidence of any significant joint effusion. No fr acture seen. IMPRESSION: Osteoarthritis in the medial joint spaces and mainly on the right side.
--- NOTE | 2021-12-06 17:27 | XR ---
EXAMINATION TYPE: XR femur bilateral DATE OF EXAM: 12/06/2021 COMPARISON: NONE HISTORY: Pain TECHNIQUE: 8 views FINDINGS: There is no evidence of fracture nor dislocation. There are some sclerotic changes and subc hondral cystic changes in the medial joint space of the right knee. No evidence of knee joint effusio n. IMPRESSION: Osteoarthritis in the medial joint space of the right knee. No evidence of femoral fractu re.
--- NOTE | 2021-12-06 17:29 | XR ---
EXAMINATION TYPE: XR chest 1V DATE OF EXAM: 12/06/2021 COMPARISON: 06/29/2020 HISTORY: Single view TECHNIQUE: Single view FINDINGS: There is no heart failure nor confluent pneumonic infiltrate. Costophrenic angles are clear . Thoracic aorta is atheromatous. IMPRESSION: No active cardiopulmonary disease. No change.
[2021-12-06 17:36] LABS: Basophils % (A) 1 %; Eosinophils # (A) 0.1 k/uL (0-0.7); Eosinophils % (A) 2 %; HCT 40.4 % (34.0-46.0); HGB 13.3 gm/dL (11.4-16.0); Lymphocytes # (A) 1.1 k/uL (1.0-4.8); Lymphocytes % (A) 22 %; MCH 31.2 pg (25.0-35.0); MCHC 32.8 g/dL (31.0-37.0); Mean Platelet Volume 7.2; Monocytes # (A) 0.4 k/uL (0-1.0); Monocytes % (A) 8 %; Neutrophils # (A) 3.2 k/uL (1.3-7.7); Neutrophils % (A) 65 %; Platelet Count 132 k/uL (150-450); RBC 4.25 m/uL (3.80-5.40); RDW 12.5 % (11.5-15.5)
--- NOTE | 2021-12-06 17:38 | CT ---
EXAMINATION TYPE: CT brain ramyaine wo con DATE OF EXAM: 12/06/2021 COMPARISON: None HISTORY: fall CT DLP: 1556.7 mGycm Automated exposure control for dose reduction was used. Images of the brain and cervical spine obtained with no contrast. There is mild cerebral cortical atrophy. There is no mass effect or midline shift. No sign of intracr anial hemorrhage. Calvarium is intact. There is very little pneumatization of the mastoid sinuses. Sk ull base is intact. The cervical vertebra have normal alignment. There is degenerative spurring anteriorly in the mid and lower cervical spine. No compression fracture. There is multilevel cervical facet arthropathy. IMPRESSION: Spondylotic changes in the cervical spine. No fracture. Cerebral atrophy. No acute intracranial abnormality.
--- NOTE | 2021-12-06 17:42 | CT ---
EXAMINATION TYPE: CT thor lumbar spine wo con DATE OF EXAM: 12/06/2021 COMPARISON: None HISTORY: Pt fall CT DLP: 1278 mGycm Automated exposure control for dose reduction was used. There is a moderate thoracic dextroscoliosis. There is a mild thoracolumbar compensatory levoscoliosi s. There is a slight increased thoracic kyphotic curvature. There is degenerative spurring anteriorly throughout the thoracic spine. No significant compression deformity. No paraspinal mass. The posteri or elements are intact. No evidence of focal bone destruction. There is some hypertrophic facet arthropathy in the lumbar spine at L4-5 and L5-S1. The sacroiliac bartolo ints are intact. IMPRESSION: There is thoracic and lumbar scoliotic deformity. No fracture seen. Multilevel mild spondylotic cosby es.
[2021-12-06 17:43] LABS: Appearance,Urine Cloudy (Clear); Bilirubin,Urine Negative (Negative); Blood,Urine Moderate (Negative); Color,Urine Yellow; Glucose,Urine (UA) Negative (Negative); Ketones,Urine Negative (Negative); Leukocyte Esterase,Urine Large (Negative); Mucus,Urine Rare /hpf; Nitrite,Urine Negative (Negative); Protein,Urine Trace (Negative); RBC,Urine 16 /hpf (0-5); Specific Gravity,Urine 1.017 (1.001-1.035); Squamous Epithelial Cell,Urine 4 /hpf (0-4); Urobilinogen,Urine <2.0 mg/dL (<2.0); WBC,Urine 60 /hpf (0-5)
[2021-12-06 17:46] LABS: Albumin 3.8 g/dL (3.5-5.0); Calcium 9.3 mg/dL (8.4-10.2); Magnesium 2.2 mg/dL (1.6-2.3); Potassium 4.6 mmol/L (3.5-5.1); Total Bilirubin 0.3 mg/dL (0.2-1.3); Total Protein 6.3 g/dL (6.3-8.2)
[2021-12-06] MEDS ORDERED: SODIUM CHLORIDE 0.9% 1,000 ML IV STA (18:21)
[2021-12-06] MEDS ORDERED: NALOXONE 0.4 MG/ML 1 ML VIAL IV PRN (19:46)
[2021-12-06] MEDS ORDERED: ACETAMINOPHEN TAB 500 MG TAB PO STA (20:50)
[2021-12-06] MEDS: CHOLECALCIFEROL 25 MCG (1000 IU) TABLET PO SCH (21:10)
[2021-12-06] MEDS: ATORVASTATIN 20 MG TAB PO SCH (21:10)
[2021-12-06] MEDS: carvediloL 3.125 MG TAB PO SCH (21:10)
[2021-12-06] MEDS: metFORMIN 500 MG TAB PO SCH (21:11)
[2021-12-06] MEDS: ASPIRIN 81 MG PO SCH (21:12)
[2021-12-06] MEDS: FLUoxetine HCL 10 MG CAP PO SCH (22:29)
[2021-12-07] MEDS: LOSARTAN 50 MG TAB PO SCH ×2 (00:03→21:35)
[2021-12-07] MEDS: carvediloL 3.125 MG TAB PO SCH ×2 (08:30→16:15)
[2021-12-07 09:37] LABS: Basophils # (A) 0.03 X 10*3/uL (0.00-0.10); Basophils % (A) 0.7 %; Eosinophils # (A) 0.15 X 10*3/uL (0.04-0.35); Eosinophils % (A) 3.6 %; HCT 37.9 % (37.2-46.3); HGB 12.1 g/dL (12.0-15.0); Immature Grans, Automated 0.2 %; Lymphocytes # (A) 1.26 X 10*3/uL (0.90-5.00); Lymphocytes % (A) 30.4 %; MCH 30.1 pg (27.0-32.0); MCHC 31.9 g/dL (32.0-37.0); MCV 94.3 fL (80.0-97.0); Monocytes # (A) 0.44 X 10*3/uL (0.20-1.00); Monocytes % (A) 10.6 %; NRBC Per 100 WBC 0 /100 WBCS (0.0-0.0); Neutrophils # (A) 2.25 X 10*3/uL (1.80-7.70); Neutrophils % (A) 54.5 %; Platelet Count 104 X 10*3/uL (140-440); RBC 4.02 X 10*6/uL (4.10-5.20); RDW 12.1 % (11.5-14.5); WBC 4.14 X 10*3/uL (4.50-10.00)
[2021-12-07 09:47] LABS: African American GFR (CKD) 50.6 (60.0-200.0); Anion Gap 11.4 mmol/L (10.00-18.00); BUN/Creat Ratio 25.54 Ratio (12.00-20.00); Blood Urea Nitrogen 33.2 mg/dL (9.0-27.0); Calcium 9.1 mg/dL (8.7-10.3); Carbon Dioxide 22.6 mmol/L (20.0-27.5); Non-African American GFR(CKD) 43.6 (60.0-200.0); Potassium 4.6 mmol/L (3.5-5.5)
--- NOTE | 2021-12-07 12:58 | P.HPIM ---
History of Present Illness This is a pleasant 61 years old female with past medical history of diabetes mellitus, hypertension, hyperlipidemia pt is poor historian and he is mentally challanged , she has her mother at bedside who is her legal guardian , information were obtained from mother and sister lonnie over the phone, pt is brought to the hospital for frequent falling without loosing conscious , she is been feeling week , family think she will need physical therapy pt at baseline talk with hard to understand except by family since they know her for many years . As per sister she has been told thinking of a child and is her baseline. Usually she walks around the house. For the last few years she's been having difficulty to underwent however it was worse over the last 2 days. As per family there is no change in her speech pattern. Also she is awake and alert and follows commands. She is cooperative. But sometimes she does not listen and family suspect some hearing problems. There were not sure. Patient also has chronic urine incontinence No smoking or alcohol or illicit drugs Hemodynamically stable and patient is afebrile. Labs including CBC is unremarkable. BMP showed elevated creatinine at 1.47, baseline 1.3-1.6 Glucose 122. Rest of BMP and liver enzymes are unremarkable. Urinalysis suspicious for UTI Viruses including influenza and Covid are undetected Hip and pelvic x-ray: Degenerative disease, no acute fracture X-ray of both knees and femurs: No acute fracture. Chest x-ray: No acute process. CT of the cervical spine and head showing cerebral atrophy with no acute intracranial abnormality as well as spondylitic changes in the cervical spine without evidence of fracture. CT of the thoracolumbar spine: There is thoracic and lumbar scoliotic deformity. No fracture seen. Multilevel mild spondylitic changes. EKG: Normal sinus rhythm with occasional PVC, QTC 418, no significant ST T changes And emergency room patient was started on ceftriaxone Culture Review of Systems CONSTITUTIONAL: No fever, no malaise, no fatigue. HEENT: No recent visual problems or hearing problems. Denied any sore throat. CARDIOVASCULAR: No orthopnea, PND, no palpitations, no syncope. PULMONARY: No shortness of breath, no cough, no hemoptysis. GASTROINTESTINAL: No diarrhea, no nausea, no vomiting, no abdominal pain. Normoactive bowel sounds. NEUROLOGICAL: No headaches, no weakness, no numbness. HEMATOLOGICAL: Denies any bleeding or petechiae. GENITOURINARY: Denies any burning micturition, frequency, or urgency. MUSCULOSKELETAL/RHEUMATOLOGICAL: Denies any joint pain, swelling, or any muscle pain. ENDOCRINE: Denies any polyuria or polydipsia. Past Medical History Past Medical History: Diabetes Mellitus, Hyperlipidemia, Hypertension Additional Past Medical History / Comment(s): kyphosis History of Any Multi-Drug Resistant Organisms: None Reported Past Surgical History: No Surgical Hx Reported Past Anesthesia/Blood Transfusion Reactions: No Reported Reaction Past Psychological History: Anxiety, Depression Smoking Status: Never smoker Past Alcohol Use History: None Reported Past Drug Use History: None Reported - Past Family History Mother Family Medical History: No Reported History Father Family Medical History: Congestive Heart Failure (CHF), Coronary Artery Disease (CAD) Medications and Allergies Home Medications Medication Instructions Recorded Confirmed Type Aspirin [Adult Low Dose Aspirin EC] 81 mg PO HS 06/27/20 12/06/21 History Atorvastatin [Lipitor] 20 mg PO HS 06/27/20 12/06/21 History FLUoxetine HCL [PROzac] 30 mg PO HS 06/27/20 12/06/21 History carvediloL [Coreg] 3.125 mg PO BID 06/27/20 12/06/21 History metFORMIN HCL ER [Glucophage XR] 1,000 mg PO HS 06/27/20 12/06/21 History Cholecalciferol [Vitamin D3 (25 50 mcg PO HS 12/06/21 12/06/21 History Mcg = 1000 Iu)] Losartan Potassium [Cozaar] 100 mg PO HS 12/06/21 12/06/21 History Allergies Allergy/AdvReac Type Severity Reaction Status Date / Time No Known Allergies Allergy Verified 12/06/21 18:24 Physical Exam Vitals: Vital Signs Temp Pulse Pulse Resp BP BP Pulse Ox 12/07/21 08:00 60 18 12/07/21 05:00 98.0 F 60 18 110/45 98 12/06/21 23:40 97.7 F 56 L 18 95/62 98 12/06/21 22:37 109/59 12/06/21 19:00 74 18 124/80 98 12/06/21 16:56 70 18 124/64 99 12/06/21 15:45 98.2 F 73 17 114/47 97 Intake and Output 12/06/21 12/07/21 12/07/21 22:59 06:59 14:59 Intake Total 900 Balance 900 Intake: Intake, IV Titration 900 Amount Sodium Chloride 0.9% 1, 900 000 ml @ 100 mls/hr IV . Q10H STA Rx#:[id number] Other: Voiding Method Diaper Diaper External Catheter External Catheter # Voids 2 Weight 65.771 kg 65.771 kg - The patient is alert and oriented and active, she is mentally challenged but follows commands, not in any acute distress. Well developed, well nourished. HEENT: Pupils are round and equally reacting to light. EOMI. No scleral icterus. No conjunctival pallor. Normocephalic, atraumatic. No pharyngeal erythema. No thyromegaly. CARDIOVASCULAR: S1 and S2 present. No murmurs, rubs, or gallops. PULMONARY: Chest is clear to auscultation, no wheezing or crackles. ABDOMEN: Soft, nontender, nondistended, normoactive bowel sounds. No palpable organomegaly. MUSCULOSKELETAL: No joint swelling or deformity. EXTREMITIES: No cyanosis, clubbing, or pedal edema. -NEUROLOGICAL:Cranial nerves are grossly intact. Strength is 5/5 in upper extremities and both legs are 4+/5, patient was able to bend them spontaneously and as per family this is her baseline. There is no asymmetry. Meningeal signs are absent. SKIN: No rashes. no petechiae. Results CBC & Chem 7: 12/07/21 05:37 12/07/21 05:37 Labs: Abnormal Lab Results - Last 24 Hours (Table) 12/06/21 12/06/21 12/06/21 Range/Units 17:06 17:06 17:06 WBC (4.50-10.00) X 10*3/uL RBC (4.10-5.20) X 10*6/uL MCHC (32.0-37.0) g/dL Plt Count 132 L (150-450) k/uL Chloride 109 H (98-107) mmol/L BUN 41 H (7-17) mg/dL Creatinine 1.47 H (0.52-1.04) mg/dL Est GFR (CKD-EPI)AfAm (60.0-200.0) Est GFR (CKD-EPI)NonAf (60.0-200.0) BUN/Creatinine Ratio (12.00-20.00) Ratio Glucose 122 H (74-99) mg/dL Urine Appearance Cloudy H (Clear) Urine Protein Trace H (Negative) Urine Blood Moderate H (Negative) Ur Leukocyte Esterase Large H (Negative) Urine RBC 16 H (0-5) /hpf Urine WBC 60 H (0-5) /hpf Urine Mucus Rare H (None) /hpf 12/07/21 12/07/21 Range/Units 05:37 05:37 WBC 4.14 L (4.50-10.00) X 10*3/uL RBC 4.02 L (4.10-5.20) X 10*6/uL MCHC 31.9 L (32.0-37.0) g/dL Plt Count 104 L (150-450) k/uL Chloride (98-107) mmol/L BUN 33.2 H (7-17) mg/dL Creatinine (0.52-1.04) mg/dL Est GFR (CKD-EPI)AfAm 50.6 L (60.0-200.0) Est GFR (CKD-EPI)NonAf 43.6 L (60.0-200.0) BUN/Creatinine Ratio 25.54 H (12.00-20.00) Ratio Glucose (74-99) mg/dL Urine Appearance (Clear) Urine Protein (Negative) Urine Blood (Negative) Ur Leukocyte Esterase (Negative) Urine RBC (0-5) /hpf Urine WBC (0-5) /hpf Urine Mucus (None) /hpf Microbiology - Last 24 Hours (Table) 12/06/21 17:06 Urine Culture - Preliminary Urine,Voided Thrombosis Risk Factor Assmnt - Choose All That Apply Any of the Below Risk Factors Present?: No Other Risk Factors: Yes Each Risk Factor Represents 2 Points: Age 61-74 years Other congenital or acquired thrombophilia - If yes, enter type in comment: No Thrombosis Risk Factor Assessment Total Risk Factor Score: 2 Thrombosis Risk Factor Assessment Level: Low Risk Assessment and Plan Assessment: Acute urinary tract infection Metabolic encephalopathy secondary to above Fall without syncope Generalized weakness secondary to above Chronic urine incontinence Chronic kidney disease stage III, most likely diabetic nephropathy Diabetes Mellitus Hyperlipidemia Hypertension Plan: This is a pleasant 61 years old female who presents with generalized weakness secondary to UTI with alcohol Continue with ceftriaxone follow-up urine culture Ask for physical therapy evaluation Labs and medication were reviewed.. Continue same treatment. Continue with symptomatic treatment. Resume home medication. Monitor lytes and vitals. DVT and GI prophylaxis. Further recommendations as per clinical course of the patient DVT prophylaxis: Subcutaneous heparin GI Prophylaxis: Pepcid PT/OT: Pending Prognosis is guarded
[2021-12-07] MEDS ORDERED: VANCOMYCIN IV PER PHARMACY 1 EACH MISC MISCELLANE PRN (19:46)
[2021-12-07] MEDS ORDERED: VANCOMYCIN 1,250 MG in SODIUM CHLORIDE 0.9% 250 ML IVPB ONE (20:00)
[2021-12-07] MEDS: metFORMIN 500 MG TAB PO SCH (20:12)
[2021-12-07] MEDS: ATORVASTATIN 20 MG TAB PO SCH (20:12)
[2021-12-07] MEDS: CHOLECALCIFEROL 25 MCG (1000 IU) TABLET PO SCH (20:12)
[2021-12-07] MEDS: ASPIRIN 81 MG PO SCH (20:14)
[2021-12-07] MEDS: FLUoxetine HCL 10 MG CAP PO SCH (20:14)
[2021-12-07] MEDS: SODIUM CHLORIDE 0.9% 1,000 ML IV SCH (23:45)
[2021-12-08 08:30] LABS: Glucose,Whole Blood 92 mg/dL (70-110)
[2021-12-08] MEDS: INSULIN ASPART (NovoLOG) 100 UNIT/ML VIAL SQ SCH ×4 (08:30→20:09)
[2021-12-08] MEDS ORDERED: VANCOMYCIN 1,250 MG in SODIUM CHLORIDE 0.9% 250 ML IVPB SCH (09:00)
[2021-12-08] MEDS: HEPARIN SODIUM,PORCINE/PF 5,000 UNIT/0.5 ML SYRINGE SQ SCH ×2 (09:16→20:43)
[2021-12-08] MEDS: carvediloL 3.125 MG TAB PO SCH ×2 (09:16→18:08)
[2021-12-08] MEDS: FAMOTIDINE 20 MG/2 ML VIAL IV SCH ×2 (09:16→20:36)
[2021-12-08 09:17] LABS: Basophils # (A) 0.02 X 10*3/uL (0.00-0.10); Basophils % (A) 0.5 %; Eosinophils # (A) 0.16 X 10*3/uL (0.04-0.35); Eosinophils % (A) 3.8 %; HCT 38.7 % (37.2-46.3); HGB 12.3 g/dL (12.0-15.0); Immature Grans, Automated 0.2 %; Lymphocytes # (A) 1.29 X 10*3/uL (0.90-5.00); Lymphocytes % (A) 30.4 %; MCH 29.4 pg (27.0-32.0); MCHC 31.8 g/dL (32.0-37.0); MCV 92.4 fL (80.0-97.0); Mean Platelet Volume 9.5 fL (9.5-12.2); Monocytes # (A) 0.42 X 10*3/uL (0.20-1.00); Monocytes % (A) 9.9 %; NRBC Per 100 WBC 0 /100 WBCS (0.0-0.0); Neutrophils # (A) 2.35 X 10*3/uL (1.80-7.70); Neutrophils % (A) 55.2 %; Platelet Count 103 X 10*3/uL (140-440); RBC 4.19 X 10*6/uL (4.10-5.20); WBC 4.25 X 10*3/uL (4.50-10.00)
[2021-12-08 09:54] LABS: African American GFR (CKD) 46.2 (60.0-200.0); Anion Gap 10.5 mmol/L (10.00-18.00); BUN/Creat Ratio 20.57 Ratio (12.00-20.00); Blood Urea Nitrogen 28.8 mg/dL (9.0-27.0); Calcium 9.3 mg/dL (8.7-10.3); Carbon Dioxide 23.5 mmol/L (20.0-27.5); Non-African American GFR(CKD) 39.9 (60.0-200.0); Potassium 4.9 mmol/L (3.5-5.5)
[2021-12-08 12:35] LABS: Glucose,Whole Blood 86 mg/dL (70-110)
[2021-12-08 17:29] LABS: Glucose,Whole Blood 115 mg/dL (70-110)
[2021-12-08] MEDS: SODIUM CHLORIDE 0.9% 1,000 ML IV SCH (18:09)
--- NOTE | 2021-12-08 18:59 | P.PN ---
Subjective This is a pleasant 61 years old female with past medical history of diabetes mellitus, hypertension, hyperlipidemia pt is poor historian and he is mentally challanged , she has her mother at bedside who is her legal guardian , information were obtained from mother and sister lonnie over the phone, pt is brought to the hospital for frequent falling without loosing conscious , she is been feeling week , family think she will need physical therapy pt at baseline talk with hard to understand except by family since they know her for many years . As per sister she has been told thinking of a child and is her baseline. Usually she walks around the house. For the last few years she's been having difficulty to underwent however it was worse over the last 2 days. As per family there is no change in her speech pattern. Also she is awake and alert and follows commands. She is cooperative. But sometimes she does not listen and family suspect some hearing problems. There were not sure. Patient also has chronic urine incontinence No smoking or alcohol or illicit drugs Hemodynamically stable and patient is afebrile. Labs including CBC is unremarkable. BMP showed elevated creatinine at 1.47, baseline 1.3-1.6 Glucose 122. Rest of BMP and liver enzymes are unremarkable. Urinalysis suspicious for UTI Viruses including influenza and Covid are undetected Hip and pelvic x-ray: Degenerative disease, no acute fracture X-ray of both knees and femurs: No acute fracture. Chest x-ray: No acute process. CT of the cervical spine and head showing cerebral atrophy with no acute intracranial abnormality as well as spondylitic changes in the cervical spine without evidence of fracture. CT of the thoracolumbar spine: There is thoracic and lumbar scoliotic deformity. No fracture seen. Multilevel mild spondylitic changes. EKG: Normal sinus rhythm with occasional PVC, QTC 418, no significant ST T changes And emergency room patient was started on ceftriaxone Culture 12/08/2021 Patient almost back to baseline, brother and mother at bedside and confirm this. Patient denies any specific symptoms, no abdominal complaints, no urinary sympto ms. No nausea vomiting and tolerating his diet well. She is hemodynamically stable Creatinine at baseline. Urine culture growing Proteus and she was on ceftriaxone The positive blood culture is contamination and IV vancomycin was discontinued as per ID team as per staff. Patient recommended to go to subacute rehab, patient family themselves request in rehab. We'll discharge in 24-48 hours if she keeps improving Objective - Vital Signs Vital signs: Vital Signs Temp 98 F 12/08/21 04:50 Pulse 63 12/08/21 04:50 Resp 16 12/08/21 04:50 BP 129/65 12/08/21 04:50 Pulse Ox 98 12/08/21 04:50 FiO2 Intake & Output 12/07/21 12/08/21 12/08/21 18:59 06:59 18:59 Intake Total 600 Balance 600 Intake: Oral 600 Other: Voiding Method Diaper Diaper External Catheter # Voids 2 1 - Exam - The patient is alert and oriented and active, she is mentally challenged but follows commands, not in any acute distress. Well developed, well nourished. HEENT: Pupils are round and equally reacting to light. EOMI. No scleral icterus. No conjunctival pallor. Normocephalic, atraumatic. No pharyngeal erythema. No thyromegaly. CARDIOVASCULAR: S1 and S2 present. No murmurs, rubs, or gallops. PULMONARY: Chest is clear to auscultation, no wheezing or crackles. ABDOMEN: Soft, nontender, nondistended, normoactive bowel sounds. No palpable organomegaly. MUSCULOSKELETAL: No joint swelling or deformity. EXTREMITIES: No cyanosis, clubbing, or pedal edema. -NEUROLOGICAL:Cranial nerves are grossly intact. Strength is 5/5 in upper extremities and both legs are 4+/5, patient was able to bend them spontaneously and as per family this is her baseline. There is no asymmetry. Meningeal signs are absent. SKIN: No rashes. no petechiae. - Labs CBC & Chem 7: 12/08/21 05:59 12/08/21 05:59 Labs: Abnormal Lab Results - Last 24 Hours (Table) 12/08/21 12/08/21 Range/Units 05:59 05:59 WBC 4.25 L (4.50-10.00) X 10*3/uL MCHC 31.8 L (32.0-37.0) g/dL Plt Count 103 L (140-440) X 10*3/uL BUN 28.8 H (9.0-27.0) mg/dL Est GFR (CKD-EPI)AfAm 46.2 L (60.0-200.0) Est GFR (CKD-EPI)NonAf 39.9 L (60.0-200.0) BUN/Creatinine Ratio 20.57 H (12.00-20.00) Ratio Microbiology - Last 24 Hours (Table) 12/06/21 19:00 Blood Culture Gram Stain - Preliminary Blood Blood Culture - Preliminary Staphylococcus epidermidis 12/06/21 17:06 Urine Culture - Preliminary Urine,Voided Gram Neg Bacilli 12/06/21 18:45 Blood Culture Gram Stain - Preliminary Blood 12/06/21 19:00 Blood Culture - Final Blood 12/06/21 18:45 Blood Culture - Final Blood Assessment and Plan Assessment: Acute urinary tract infection Metabolic encephalopathy secondary to above. 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 Continue same treatment. Continue with symptomatic treatment. Resume home medication. Monitor lytes and vitals. DVT and GI prophylaxis. Further recommendations as per clinical course of the patient DVT prophylaxis: Subcutaneous heparin GI Prophylaxis: Pepcid PT/OT: FITZ
[2021-12-08 20:03] LABS: Glucose,Whole Blood 136 mg/dL (70-110)
[2021-12-08] MEDS: ATORVASTATIN 20 MG TAB PO SCH (20:36)
[2021-12-08] MEDS: CHOLECALCIFEROL 25 MCG (1000 IU) TABLET PO SCH (20:36)
[2021-12-08] MEDS: FLUoxetine HCL 10 MG CAP PO SCH (20:36)
[2021-12-08] MEDS: ASPIRIN 81 MG PO SCH (20:36)
[2021-12-08] MEDS: metFORMIN 500 MG TAB PO SCH (20:36)
[2021-12-08] MEDS: LOSARTAN 50 MG TAB PO SCH (20:36)
--- NOTE | 2021-12-08 23:14 | P.CONS ---
History of Present Illness - Reason for Consult Consult date: 12/08/21 - History of Present Illness History of Present Illness : Patient is a 61-year-old female with a past medical history significant for diabetes mellitus hypertension hyperlipidemia mentally change patient has been brought into the ER for evaluation of frequent falls week however no loss of consciousness or any head injury patient symptom has been getting worse for a few days before presentation to the hospital however no clear history of any fever on arrival to the ER the patient was afebrile and no fever have been recorded subsequently patient did have a normal white count with a left shift lymphopenia BUN was mildly elevated creatinine was normal liver enzymes are normal patient did have a positive UA in fluenza and COVID testing was negative patient did have a chest x-ray no active cardiopulmonary disease x-ray was negative for any bleed CT cervical spine did not show any fracture patient did have blood cultures drawn which came back positive with gram-positive cocci patient was started on vancomycin as well as Rocephin for the UTI infectious disease was consulted for further management of antibiotic therapy most information has been obtained from the mother at the bedside as the patient was unable provide any history Review of system: Positive points mentioned in history of present illness complete review could not be obtained because of his underlying medical condition. Past medical history : Reviewed, documented below Past surgical history : Reviewed, documented below Social history: Reviewed, documented below Medications: Reviewed, as documented below EXAMINATION: Vital sigans= Reviewed and documented below GENERAL DESCRIPTION: Middle-aged female lying in bed, no distress. No tachypnea or accessory muscle of respiration use. HEENT: Shows Pallor , no scleral icterus. Oral mucous membrane is dry. NECK: Trachea central, no thyromegaly. LUNGS: Unlabored breathing. Clear to auscultation anteriorly. No wheeze or crackle. HEART: S1, S2, regular rate and rhythm. ABDOMEN: Soft, no tenderness , guarding or rigidity EXTREMITIES: No edema feet SKIN: No rash, no masses palpable. NEUROLOGICAL: The patient is awake, alert, however orientation could not determine because of underlying mental debility LABS AND RADIOLOGY: Reviewed results see below Assessment : 1patient has been brought to the hospital for generalized weakness falls which is likely multifactorial in this patient who do have a component of UTI likely from enteric gram-negative pathogen. 2patient with a positive blood culture has been finalized with staph epi more likely skin contaminant as the patient has no clinical disease to go along with it Plan: 1-discontinue vancomycin 2-continue with Rocephin while waiting for the culture to finalize 3-gentle IV fluid We will follow on clinical condition and cultures to further adjust medication if needed Thank you for this consultation we will follow the patient along with you Past Medical History Past Medical History: Diabetes Mellitus, Hyperlipidemia, Hypertension Additional Past Medical History / Comment(s): kyphosis History of Any Multi-Drug Resistant Organisms: None Reported Past Surgical History: No Surgical Hx Reported Past Anesthesia/Blood Transfusion Reactions: No Reported Reaction Past Psychological History: Anxiety, Depression Smoking Status: Never smoker Past Alcohol Use History: None Reported Past Drug Use History: None Reported - Past Family History Mother Family Medical History: No Reported History Father Family Medical History: Congestive Heart Failure (CHF), Coronary Artery Disease (CAD) Medications and Allergies Home Medications Medication Instructions Recorded Confirmed Type Aspirin [Adult Low Dose Aspirin EC] 81 mg PO HS 06/27/20 12/06/21 History Atorvastatin [Lipitor] 20 mg PO HS 06/27/20 12/06/21 History FLUoxetine HCL [PROzac] 30 mg PO HS 06/27/20 12/06/21 History carvediloL [Coreg] 3.125 mg PO BID 06/27/20 12/06/21 History metFORMIN HCL ER [Glucophage XR] 1,000 mg PO HS 06/27/20 12/06/21 History Cholecalciferol [Vitamin D3 (25 50 mcg PO HS 12/06/21 12/06/21 History Mcg = 1000 Iu)] Losartan Potassium [Cozaar] 100 mg PO HS 12/06/21 12/06/21 History Allergies Allergy/AdvReac Type Severity Reaction Status Date / Time No Known Allergies Allergy Verified 12/06/21 18:24 Physical Exam Vitals: Vital Signs Temp Pulse Resp BP Pulse Ox 12/08/21 04:50 98 F 63 16 129/65 98 12/07/21 20:02 98.6 F 69 16 107/56 96 12/07/21 12:45 97.5 F L 62 16 115/52 98 Intake and Output 12/07/21 12/08/21 12/08/21 22:59 06:59 14:59 Intake Total 600 Balance 600 Intake: Oral 600 Other: Voiding Method Diaper # Voids 1 1 Results CBC & Chem 7: 12/08/21 05:59 12/08/21 05:59 Labs: Abnormal Lab Results - Last 24 Hours (Table) 12/07/21 12/07/21 Range/Units 05:37 05:37 WBC 4.14 L (4.50-10.00) X 10*3/uL RBC 4.02 L (4.10-5.20) X 10*6/uL MCHC 31.9 L (32.0-37.0) g/dL Plt Count 104 L (140-440) X 10*3/uL BUN 33.2 H (9.0-27.0) mg/dL Est GFR (CKD-EPI)AfAm 50.6 L (60.0-200.0) Est GFR (CKD-EPI)NonAf 43.6 L (60.0-200.0) BUN/Creatinine Ratio 25.54 H (12.00-20.00) Ratio Microbiology - Last 24 Hours (Table) 12/06/21 19:00 Blood Culture Gram Stain - Preliminary Blood Blood Culture - Preliminary Staphylococcus epidermidis 12/06/21 17:06 Urine Culture - Preliminary Urine,Voided Gram Neg Bacilli 12/06/21 18:45 Blood Culture Gram Stain - Preliminary Blood 12/06/21 19:00 Blood Culture - Final Blood 12/06/21 18:45 Blood Culture - Final Blood
[2021-12-09 07:30] LABS: Glucose,Whole Blood 94 mg/dL (70-110)
[2021-12-09] MEDS: INSULIN ASPART (NovoLOG) 100 UNIT/ML VIAL SQ SCH ×2 (07:32→12:42)
[2021-12-09] MEDS: carvediloL 3.125 MG TAB PO SCH (08:01)
[2021-12-09] MEDS: FAMOTIDINE 20 MG/2 ML VIAL IV SCH (08:01)
[2021-12-09] MEDS: HEPARIN SODIUM,PORCINE/PF 5,000 UNIT/0.5 ML SYRINGE SQ SCH (08:01)
[2021-12-09 12:04] LABS: Glucose,Whole Blood 103 mg/dL (70-110)
[2021-12-09 12:56] VITALS: BP 108/62; PULSE 60; RESP 18; TEMP 98.1
--- NOTE | 2021-12-09 14:26 | P.DS ---
Providers Date of admission: 12/06/21 19:46 Attending physician: Jessica Eastman Consults: 12/07/21 19:43 Consult Physician Urgent Consulting Provider: Aristides Villafana Consult Reason/Comments: positive blood culture Do you want consulting provider notified?: Yes 12/07/21 19:47 Consult Physician Routine Consulting Provider: Aristides Villafana Consult Reason/Comments: blood cult pos .Gram pos cocci Do you want consulting provider notified?: Yes Primary care physician: Luca Rossqvi Hospital Course: Diagnoses: Acute urinary tract infection secondary to Proteus, sensitive to multiple antibiotic Metabolic encephalopathy secondary to above. Resolved. Patient back to baseline Fall without syncope. Patient will need rehab upon discharge Generalized weakness secondary to above Chronic urine incontinence Chronic kidney disease stage III, most likely diabetic nephropathy Diabetes Mellitus Hyperlipidemia Hypertension Hospital course: This is a pleasant 61 years old female with past medical history of diabetes mellitus, hypertension, hyperlipidemia pt is poor historian and he is mentally challanged , she has her mother at bedside who is her legal guardian , information were obtained from mother and s césar fleming over the phone, pt is brought to the hospital for frequent falling without loosing conscious , she is been feeling week , family think she will need physical therapy pt at baseline talk with hard to understand except by family since they know her for many years . As per sister she has been told thinking of a child and is her baseline. Usually she walks around the house. For the last few years she's been having difficulty to ambulate however it was worse over the last 2 days Prior to admission. As per family there is no change in her speech pattern. Also she is awake and alert and follows commands. She is cooperative. But sometimes she does not listen and family suspect some hearing problems. Patient found to have some mild change in her mental status secondary to acute urinary tract infection. Patient was treated with ceftriaxone. Urine culture was positive for Proteus. Infectious disease team was on the case. Patient showed interval improvement and on the day of discharge she is back to baseline this is confirmed by the brother and mother at bedside who were happy with the progress she made, patient was denying any other symptoms, she had good appetite . No pain or urinary symptoms or dysuria. also they requested the patient goes to rehab. Physical therapy evaluation already recommended subacute rehab and family agrees. Patient will be discharged on short course of oral antibiotic Infectious disease team. The patient for discharge Problems and management plan were discussed with the patient and he verbalized understanding and acceptance Patient was found stable and can be discharged to [facility] for rehab in guarded prognosis however he needs follow-up as an outpatient. Patient was instructed to follow up with PCP within one week and patient agrees Physical exam Gen: patient is a awake, alert, does not follow most of commands, patient is at mental baseline as per brother and mother at bedside, no distress CVS: S1-S2, RRR, no murmur Lungs: B/L CTA, no wheezing Abdomen: soft, no distention, no tenderness, positive bowel sounds Extremity: no leg edema or induration Time spent more than 35 minutes Patient Condition at Discharge: Stable Plan - Discharge Summary Discharge Rx Participant: No New Discharge Prescriptions: No Action metFORMIN HCL ER [Glucophage XR] 1,000 mg PO HS carvediloL [Coreg] 3.125 mg PO BID FLUoxetine HCL [PROzac] 30 mg PO HS Atorvastatin [Lipitor] 20 mg PO HS Aspirin [Adult Low Dose Aspirin EC] 81 mg PO HS Losartan Potassium [Cozaar] 100 mg PO HS Cholecalciferol [Vitamin D3 (25 Mcg = 1000 Iu)] 50 mcg PO HS Discharge Medication List Aspirin [Adult Low Dose Aspirin EC] 81 mg PO HS 06/27/20 [History] Atorvastatin [Lipitor] 20 mg PO HS 06/27/20 [History] FLUoxetine HCL [PROzac] 30 mg PO HS 06/27/20 [History] carvediloL [Coreg] 3.125 mg PO BID 06/27/20 [History] metFORMIN HCL ER [Glucophage XR] 1,000 mg PO HS 06/27/20 [History] Cholecalciferol [Vitamin D3 (25 Mcg = 1000 Iu)] 50 mcg PO HS 12/06/21 [History] Losartan Potassium [Cozaar] 100 mg PO HS 12/06/21 [History] Follow up Appointment(s)/Referral(s): Luca Key MD [Primary Care Provider] - 1-2 days
[2021-12-09] MEDS ORDERED: FAMOTIDINE 20 MG TAB PO SCH (21:00)
== END 2021-12-09 15:16 | DRG 689 ==
LOC: EC 15:40 → 5NMEDONC 19:46
PROVIDERS: ADMIT Hospitalist; ATTEND Hospitalist
DX: N39.0 Urinary tract infection, site not specified (principal); G93.41 Metabolic encephalopathy; Z20.822 Contact with and (suspected) exposure to COVID-19; E11.22 Type 2 diabetes mellitus with diabetic chronic kidney disease; N18.30 Chronic kidney disease, stage 3 unspecified; B96.4 Proteus (mirabilis) (morganii) as the cause of diseases classified elsewhere; E78.5 Hyperlipidemia, unspecified; F32.A Depression, unspecified; F41.9 Anxiety disorder, unspecified; I12.9 Hypertensive chronic kidney disease with stage 1 through stage 4 chronic kidney disease, or unspecified chronic kidney disease; R29.6 Repeated falls; M41.9 Scoliosis, unspecified; R32 Unspecified urinary incontinence; W18.30XA Fall on same level, unspecified, initial encounter; Z79.82 Long term (current) use of aspirin; Z79.84 Long term (current) use of oral hypoglycemic drugs; Z79.899 Other long term (current) drug therapy; Z87.440 Personal history of urinary (tract) infections; Z82.49 Family history of ischemic heart disease and other diseases of the circulatory system
CPT/HCPCS: 36415; 70450; 71045; 72125; 72128; 72131; 73521; 80048; 80053; 81001; 83735; 84145; 85025; 87040; 87077; 87086; 87186; 87502; 87635; 93005; 96361; 96374; 99285

== ENCOUNTER 2022-09-08 00:18 | Inpatient (IN) | payer MEDICARE, BC, OTHER ==
--- NOTE | 2022-09-08 00:51 | ED ---
Abdominal Pain HPI <Seth Del Rio - Last Filed: 09/08/22 06:13> - General Source: family Mode of arrival: wheelchair <Breann Owens - Last Filed: 09/08/22 19:50> - General Chief Complaint: Abdominal Pain Stated Complaint: Vomiting Time Seen by Provider: 09/08/22 00:38 - History of Present Illness Initial Comments: Patient is a 62-year-old female presenting with chief complaint of constipation. Patient was seen here on 08/30 for the same complaint, disimpaction and enemas were performed and patient was discharged with a prescription for lactulose. Family at bedside state that the patient has had small bowel movements but it does not seem like symptoms have been completely alleviated since then. Today after dinner she had one episode of vomiting which prompted them to seek reevaluation. Patient is complaining of lower abdominal pain. No chest pain, difficulty breathing, fever, chills, dysuria, hematuria, hematochezia, melena. (Breann Owens) - Related Data Home Medications Medication Instructions Recorded Confirmed FLUoxetine HCL [PROzac] 10 mg PO HS 06/27/20 09/08/22 carvediloL [Coreg] 3.125 mg PO BID 06/27/20 09/08/22 metFORMIN HCL ER [Glucophage XR] 1,000 mg PO HS 06/27/20 09/08/22 Atorvastatin [Lipitor] 20 mg PO HS 09/08/22 09/08/22 Docusate [Colace] 100 mg PO HS 09/08/22 09/08/22 FLUoxetine HCL [PROzac] 20 mg PO HS 09/08/22 09/08/22 Allergies Allergy/AdvReac Type Severity Reaction Status Date / Time No Known Allergies Allergy Verified 09/08/22 07:51 Review of Systems ROS Other: All systems not noted in ROS Statement are negative. <Seth Del Rio - Last Filed: 09/08/22 06:13> ROS Other: All systems not noted in ROS Statement are negative. <Breann Owens - Last Filed: 09/08/22 19:50> ROS Statement: Those systems with pertinent positive or pertinent negative responses have been documented in the HPI. Past Medical History Past Medical History: Diabetes Mellitus, Hyperlipidemia, Hypertension Additional Past Medical History / Comment(s): kyphosis History of Any Multi-Drug Resistant Organisms: None Reported Past Surgical History: No Surgical Hx Reported Past Anesthesia/Blood Transfusion Reactions: No Reported Reaction Past Psychological History: Anxiety, Depression Smoking Status: Never smoker Past Alcohol Use History: None Reported Past Drug Use History: None Reported - Past Family History Mother Family Medical History: No Reported History Father Family Medical History: Congestive Heart Failure (CHF), Coronary Artery Disease (CAD) <Breann Owens - Last Filed: 09/08/22 19:50> General Exam Limitations: no limitations General appearance: alert, in no apparent distress Head exam: Present: atraumatic, normocephalic, normal inspection Eye exam: Present: normal appearance Neck exam: Present: normal inspection, full ROM Respiratory exam: Present: normal lung sounds bilaterally. Absent: respiratory distress, wheezes, rales, rhonchi, stridor Cardiovascular Exam: Present: regular rate, normal rhythm, normal heart sounds. Absent: systolic murmur, diastolic murmur, rubs, gallop, clicks GI/Abdominal exam: Present: soft, distended. Absent: tenderness, guarding, rebound, rigid Neurological exam: Present: alert Psychiatric exam: Present: normal affect, normal mood Skin exam: Present: warm, dry, intact, normal color. Absent: rash <Breann Owens - Last Filed: 09/08/22 19:50> Course Vital Signs 09/08/22 09/08/22 09/08/22 00:32 04:23 04:44 Temperature 98.3 F Pulse Rate 68 74 76 Respiratory 18 Rate Blood Pressure 121/60 O2 Sat by Pulse 97 Oximetry 09/08/22 09/08/22 09/08/22 06:06 13:30 14:32 Temperature Pulse Rate 74 76 75 Respiratory 16 18 18 Rate Blood Pressure 111/51 115/51 118/62 O2 Sat by Pulse 97 99 99 Oximetry 09/08/22 16:00 Temperature Pulse Rate 74 Respiratory 18 Rate Blood Pressure 112/50 O2 Sat by Pulse 97 Oximetry Medical Decision Making - Lab Data Result diagrams: 09/08/22 03:06 09/08/22 04:41 - EKG Data -: EKG Interpreted by Mo <Seth Del Rio - Last Filed: 09/08/22 06:13> - Lab Data Result diagrams: 09/08/22 08:02 09/08/22 08:02 <Breann Owens - Last Filed: 09/08/22 19:50> - Medical Decision Making I assumed care of the patient from the Breann MALAGON. The patient was signed out to me pending completion of the CT abdomen and pelvis. CT abdomen and pelvis with contrast was obtained and was interpreted by myself showing a possible rectal mass. There was no signs of constipation. Laboratory workup was largely within normal limits as well. Due to the patient's repeat ER visit for constipation and not having any constipation noted on exam, the patient will be admitted for further workup and evaluation of this possible rectal mass. The patient's primary care physician was being covered by Dr. Lopez and he did agree to admitting the patient for admission. He did also recommend surgical consult for further evaluation and management. The patient was told of this plan and was agreeable. The patient was admitted in stable condition. (Seth Del Rio) Was pt. sent in by a medical professional or institution (, [facility], [facility], urgent care, hospital, or correction...) When possible be specific @ -No Did you speak to anyone other than the patient for history (EMS, parent, family, police, friend...)? What history was obtained from this source @ -No Did you review nursing and triage notes (agree or disagree)? Why? @ -I reviewed and agree with nursing and triage notes Were old charts reviewed (outside hosp., previous admission, EMS record, old EKG, old radiological studies, urgent care reports/EKG's, correction records)? Report findings @ -No old charts were reviewed Differential Diagnosis (chest pain, altered mental status, abdominal pain women, abdominal pain men, vaginal bleeding, weakness, fever, dyspnea, syncope, headache, dizziness, GI bleed, back pain, seizure, CVA, palpatations, mental health, musculoskeletal)? @ -MDM Differential Abdominal Pain Women: Appendicitis, Cholecystitis, diverticulosis, ischemic bowel, pancreatitis, hepatitis, UTI, gastroenteritis, AAA, incarcerated hernia, bowel obstruction, constipation, inflammatory bowel, hepatitis, peptic ulcer disease, splenic infarction, perforated viscus, vulvitis, ovarian torsion, PID, kidney stone, placenta abruption... This is not meant to be an all-inclusive list EKG interpreted by me (3pts min.). @ -As above X-rays interpreted by me (1pt min.). @ -KUB x-ray shows nonacute abdomen CT interpreted by me (1pt min.). @ -CT shows increased soft tissue density in the lower rectum. Rectal mass not excluded. This could be some fecal material. No evidence of constipation. No renal stone or obstruction. Normal appendix. U/S interpreted by me (1pt. min.). @ -None done What testing was considered but not performed or refused? (CT, X-rays, U/S, labs)? Why? @ -None What meds were considered but not given or refused? Why? @ -None Did you discuss the management of the patient with other professionals (professionals i.e. , PA, [facility] TESTER, lab, RT, psych nurse, social services counselor, blockman, teacher, disabilities services officer, skilled nursing case manager)? Give summary @ -Case was signed out ot my attending who spoke with admitting physician sheet Was smoking cessation discussed for >3mins.? @ -No Was critical care preformed (if so, how long)? @ -No Were there social determinants of health that impacted care today? How? (Homelessness, low income, unemployed, alcoholism, drug addiction, transportation, low edu. Level, literacy, decrease access to med. care, halfway, rehab)? @ -No Was there de-escalation of care discussed even if they declined (Discuss DNR or withdrawal of care, Hospice)? DNR status @ -No What co-morbidities impacted this encounter? (DM, HTN, Smoking, COPD, CAD, Cancer, CVA, ARF, Chemo, Hep., AIDS, mental health diagnosis, sleep apnea, morbid obesity)? @ -None Was patient admitted / discharged? Hospital course, mention meds given and route, prescriptions, significant lab abnormalities, going to OR and other pertinent info. @ -Patient is a 62-year-old female presenting with chief complaint of constipation. Patient was here last week with the same complaint, she was given 2 enemas and discharged home with lactulose, they state that patient has only had small bowel movements at home and today she had an episode of vomiting. On physical examination abdomen is soft, nondistended, with some mild lower tenderness. Lab work shows hyperkalemia with potassium of 5.7. BUN 33 and cr eatinine 1.30. Lipase 223. KUB x-ray shows nonacute abdomen. Patient was given a fleets enema and did have a large bowel movement. CT of the abdomen and pelvis was obtained, case was signed out to my attending for further management and disposition, see the remainder of his note Undiagnosed new problem with uncertain prognosis? @ -No Drug Therapy requiring intensive monitoring for toxicity (Heparin, Nitro, Insulin, Cardizem)? @ -No Were any procedures done? @ -No Diagnosis/symptom? @ -Rectal mass Acute, or Chronic, or Acute on Chronic? @ -Acute Uncomplicated (without systemic symptoms) or Complicated (systemic symptoms)? @ -Complicated Side effects of treatment? @ -No Exacerbation, Progression, or Severe Exacerbation? @ -No Poses a threat to life or bodily function? How? (Chest pain, [place], PR, pneumonia, PE, COPD, DKA, ARF, appy, cholecystitis, CVA, Diverticulitis, Homicidal, Suicidal, threat to staff... and all critical care pts) @ -Potentially (Breann Owens) - Lab Data Lab Results 09/08/22 09/08/22 09/08/22 Range/Units 03:06 03:06 03:06 WBC 5.2 (3.8-10.6) k/uL RBC 4.60 (3.80-5.40) m/uL Hgb 14.4 (11.4-16.0) gm/dL Hct 42.3 (34.0-46.0) % MCV 92.1 (80.0-100.0) fL MCH 31.3 (25.0-35.0) pg MCHC 34.0 (31.0-37.0) g/dL RDW 12.6 (11.5-15.5) % Plt Count 105 L (150-450) k/uL MPV 8.1 Neutrophils % 61 % Lymphocytes % 28 % Monocytes % 6 % Eosinophils % 2 % Basophils % 1 % Neutrophils # 3.2 (1.3-7.7) k/uL Lymphocytes # 1.4 (1.0-4.8) k/uL Monocytes # 0.3 (0-1.0) k/uL Eosinophils # 0.1 (0-0.7) k/uL Basophils # 0.0 (0-0.2) k/uL Sodium 139 (137-145) mmol/L Potassium 5.7 H (3.5-5.1) mmol/L Chloride 102 (98-107) mmol/L Carbon Dioxide 29 (22-30) mmol/L Anion Gap 8 mmol/L BUN 33 H (7-17) mg/dL Creatinine 1.30 H (0.52-1.04) mg/dL Est GFR (CKD-EPI)AfAm 50 (>60 ml/min/1.73 sqM) Est GFR (CKD-EPI)NonAf 44 (>60 ml/min/1.73 sqM) Glucose 128 H (74-99) mg/dL Plasma Lactic Acid Archie 1.4 (0.7-2.0) mmol/L Calcium 10.3 H (8.4-10.2) mg/dL Total Bilirubin 0.4 (0.2-1.3) mg/dL AST 22 (14-36) U/L ALT 34 (4-34) U/L Alkaline Phosphatase 83 (38-126) U/L Total Protein 7.1 (6.3-8.2) g/dL Albumin 4.4 (3.5-5.0) g/dL Amylase 62 (30-110) U/L Lipase 323 H (23-300) U/L 09/08/22 Range/Units 04:41 WBC (3.8-10.6) k/uL RBC (3.80-5.40) m/uL Hgb (11.4-16.0) gm/dL Hct (34.0-46.0) % MCV (80.0-100.0) fL MCH (25.0-35.0) pg MCHC (31.0-37.0) g/dL RDW (11.5-15.5) % Plt Count (150-450) k/uL MPV Neutrophils % % Lymphocytes % % Monocytes % % Eosinophils % % Basophils % % Neutrophils # (1.3-7.7) k/uL Lymphocytes # (1.0-4.8) k/uL Monocytes # (0-1.0) k/uL Eosinophils # (0-0.7) k/uL Basophils # (0-0.2) k/uL Sodium (137-145) mmol/L Potassium 5.3 H (3.5-5.1) mmol/L Chloride (98-107) mmol/L Carbon Dioxide (22-30) mmol/L Anion Gap mmol/L BUN (7-17) mg/dL Creatinine (0.52-1.04) mg/dL Est GFR (CKD-EPI)AfAm (>60 ml/min/1.73 sqM) Est GFR (CKD-EPI)NonAf (>60 ml/min/1.73 sqM) Glucose (74-99) mg/dL Plasma Lactic Acid Archie (0.7-2.0) mmol/L Calcium (8.4-10.2) mg/dL Total Bilirubin (0.2-1.3) mg/dL AST (14-36) U/L ALT (4-34) U/L Alkaline Phosphatase (38-126) U/L Total Protein (6.3-8.2) g/dL Albumin (3.5-5.0) g/dL Amylase (30-110) U/L Lipase (23-300) U/L - EKG Data EKG Comments: In EKG was obtained and was interpreted by myself showing a rate of 77, MA interval of 199, QRS duration of 100 and QTC of 447. This EKG showed a normal sinus rhythm with an occasional PVC. There was no ST segment elevation or depression noted. (Seth Del Rio) Disposition Is patient prescribed a controlled substance at d/c from ED?: No Time of Disposition: 05:30 Decision to Admit Reason: Admit from EC Decision Date: 09/08/22 Decision Time: 05:30 <Seth Del Rio - Last Filed: 09/08/22 06:13> <Breann Owens - Last Filed: 09/08/22 19:50> Clinical Impression: Abdominal pain, Rectal mass Disposition: ADMITTED IP TO THIS [facility] Condition: Stable
[2022-09-08] MEDS ORDERED: NA PHOS,M-B/NA PHOS,DI-BA 133 ML ENEMA RECTAL STA (02:22)
--- NOTE | 2022-09-08 02:28 | XR ---
EXAMINATION TYPE: XR KUB DATE OF EXAM: 09/08/2022 COMPARISON: NONE HISTORY: Pain TECHNIQUE: 2 views supine FINDINGS: There is no sign of intestinal obstruction or pneumoperitoneum. Fecal pattern is normal. No sign of a mass. There is mild lumbar levoscoliosis. No pathologic calcifications. IMPRESSION: Nonacute abdomen.
[2022-09-08] MEDS ORDERED: SODIUM CHLORIDE 0.9% 1,000 ML IV ONE (02:31)
[2022-09-08 03:18] LABS: Basophils % (A) 1 %; Eosinophils # (A) 0.1 k/uL (0-0.7); Eosinophils % (A) 2 %; HCT 42.3 % (34.0-46.0); HGB 14.4 gm/dL (11.4-16.0); Lymphocytes # (A) 1.4 k/uL (1.0-4.8); Lymphocytes % (A) 28 %; MCH 31.3 pg (25.0-35.0); MCV 92.1 fL (80.0-100.0); Mean Platelet Volume 8.1; Monocytes # (A) 0.3 k/uL (0-1.0); Monocytes % (A) 6 %; Neutrophils # (A) 3.2 k/uL (1.3-7.7); Neutrophils % (A) 61 %; Platelet Count 105 k/uL (150-450); RDW 12.6 % (11.5-15.5); WBC 5.2 k/uL (3.8-10.6)
[2022-09-08 03:28] LABS: Albumin 4.4 g/dL (3.5-5.0); Calcium 10.3 mg/dL (8.4-10.2); Potassium 5.7 mmol/L (3.5-5.1); Total Bilirubin 0.4 mg/dL (0.2-1.3); Total Protein 7.1 g/dL (6.3-8.2)
[2022-09-08] MEDS ORDERED: DEXTROSE 50% SYRINGE 50 ML IVP ONE (03:44)
[2022-09-08] MEDS ORDERED: INSULIN REGULAR 100 UNIT/ML VIAL (IV) IV ONE (03:44)
[2022-09-08] MEDS ORDERED: ALBUTEROL NEB (CONC) 2.5 MG/0.5 ML INHALATION ONE (03:44)
[2022-09-08] MEDS ORDERED: SODIUM POLYSTYRENE SULFONATE 15 GM/60 ML BOTTLE PO STA ×2 (04:00→05:03)
--- NOTE | 2022-09-08 05:20 | CT ---
EXAMINATION TYPE: CT abdomen pelvis wo con DATE OF EXAM: 09/08/2022 COMPARISON: 01/16/2020 HISTORY: CONSTIPATION CT DLP: 564.2 mGycm Automated exposure control for dose reduction was used. Images obtained from the diaphragm to the floor the pelvis with no contrast Lung bases are clear of consolidation. No pleural effusion. Heart size is top normal. Liver and splee n are intact. The bile ducts are not dilated. There is no pancreatic mass. The stomach is intact. Gal lbladder is intact. There is no adrenal mass. Kidneys have normal size. No hydronephrosis. Ureters are not dilated. No re troperitoneal adenopathy. Appendix is posterior and appears normal. The bladder distends. No inguinal hernia. There is increased density at the rectum that likely relates to retained fecal material. Rec jethro mass not excluded and should be correlated with the physical exam. No inguinal hernia. Fecal pattern is fairly normal. No evidence of a bowel obstruction. There is no mesenteric edema. No ascites or free air. There is a mild lumbar levoscoliosis. No lumbar compression fracture. Bony pelvis is intact. The hip joints are intact. Sacroiliac joints are intact. IMPRESSION: Increased soft tissue density in the lower rectum. Rectal mass not excluded. This could be some fecal material. No evidence of constipation. No renal stone or obstruction. Normal appendix.
[2022-09-08] MEDS ORDERED: NALOXONE 0.4 MG/ML 1 ML VIAL IV PRN (06:12)
--- NOTE | 2022-09-08 07:32 | P.HPIM ---
History of Present Illness This is a pleasant 61 years old female with past medical history of diabetes mellitus, hypertension, hyperlipidemia pt is poor historian and he is mentally challanged , she has her mother at bedside who is her legal guardian Patient presents to the hospital because of a patient last week at that time workup was negative including abdominal x-ray and she was discharged recommendation for follow-up outpatient, patient at that time did not have significant bowel movements despite receiving several treatment and enema. This time she presents because the mother noticed she vomited one large amounts severity this morning so she was returned emergency room, patient currently awake alert and resting comfortably in bed looks like her mentation baseline, also at home she was able to walk around but she's 09/01 monitored by her mother and family. When asked patient complains from abdominal pain but she could not localize March the patient is however her abdomen looks soft. No other symptoms was noted by the patient, no further nausea vomiting, no abdominal tenderness, no chest pain or dyspnea, no urinary complaints. Vitals are stable Abdomen unremarkable CBC, potassium elevated 5.7 at 5.3. Creatinine 1.3. BMP and liver enzymes are unremarkable. Lipase 323. EKG showing sinus rhythm at [address] T changes Computed tomography scan of the abdomen and pelvis without contrast: Increased soft tissue density in the lower rectum, rectal mass not excluded. This could be some fecal material. No evidence of constipation. And emergency room she received treatment for hyperkalemia and IV fluids. Past Medical History Past Medical History: Diabetes Mellitus, Hyperlipidemia, Hypertension Additional Past Medical History / Comment(s): kyphosis History of Any Multi-Drug Resistant Organisms: None Reported Past Surgical History: No Surgical Hx Reported Past Anesthesia/Blood Transfusion Reactions: No Reported Reaction Past Psychological History: Anxiety, Depression Smoking Status: Never smoker Past Alcohol Use History: None Reported Past Drug Use History: None Reported - Past Family History Mother Family Medical History: No Reported History Father Family Medical History: Congestive Heart Failure (CHF), Coronary Artery Disease (CAD) Medications and Allergies Home Medications Medication Instructions Recorded Confirmed Type Aspirin [Adult Low Dose Aspirin EC] 81 mg PO HS 06/27/20 12/06/21 History Atorvastatin [Lipitor] 20 mg PO HS 06/27/20 12/06/21 History FLUoxetine HCL [PROzac] 30 mg PO HS 06/27/20 12/06/21 History carvediloL [Coreg] 3.125 mg PO BID 06/27/20 12/06/21 History metFORMIN HCL ER [Glucophage XR] 1,000 mg PO HS 06/27/20 12/06/21 History Cholecalciferol [Vitamin D3 (25 50 mcg PO HS 12/06/21 12/06/21 History Mcg = 1000 Iu)] Losartan Potassium [Cozaar] 100 mg PO HS 12/06/21 12/06/21 History INSULIN ASPART (NovoLOG) [NovoLOG 0 unit SQ ACHS each 12/09/21 Rx (formulary)] cefUROXime axetiL [Ceftin] 500 mg PO BID 7 Days #14 tab 12/09/21 Rx Lactulose [Cephulac] 30 gm PO BID #270 ml 08/30/22 Rx Allergies Allergy/AdvReac Type Severity Reaction Status Date / Time No Known Allergies Allergy Verified 12/06/21 18:24 Physical Exam Vitals: Vital Signs Temp Pulse Resp BP Pulse Ox 09/08/22 06:06 74 16 111/51 97 09/08/22 04:44 76 09/08/22 04:23 74 09/08/22 00:32 98.3 F 68 18 121/60 97 Intake and Output 09/07/22 09/07/22 09/08/22 14:59 22:59 06:59 Other: Weight 68.039 kg -GENERAL: Patient is awake and alert, follows simple commands. Some questions, mentally challenged behavior, not in any acute distress. Well developed, well nourished. HEENT: Pupils are round and equally reacting to light. EOMI. No scleral icterus. No conjunctival pallor. Normocephalic, atraumatic. No pharyngeal erythema. No thyromegaly. CARDIOVASCULAR: S1 and S2 present. No murmurs, rubs, or gallops. PULMONARY: Chest is clear to auscultation, no wheezing or crackles. ABDOMEN: Soft, nontender, nondistended, normoactive bowel sounds. No palpable organomegaly. MUSCULOSKELETAL: No joint swelling or deformity. EXTREMITIES: No cyanosis, clubbing, or pedal edema. NEUROLOGICAL: Gross neurological examination did not reveal any focal deficits. SKIN: No rashes. no petechiae. Results CBC & Chem 7: 09/08/22 03:06 09/08/22 04:41 Labs: Abnormal Lab Results - Last 24 Hours (Table) 09/08/22 09/08/22 09/08/22 Range/Units 03:06 03:06 04:41 Plt Count 105 L (150-450) k/uL Potassium 5.7 H 5.3 H (3.5-5.1) mmol/L BUN 33 H (7-17) mg/dL Creatinine 1.30 H (0.52-1.04) mg/dL Glucose 128 H (74-99) mg/dL Calcium 10.3 H (8.4-10.2) mg/dL Lipase 323 H (23-300) U/L Assessment and Plan Assessment: Constipation 1 week with vomiting once, suspected secondary to rectal mass Hyperkalemia Chronic urine incontinence Chronic kidney disease stage III, most likely diabetic nephropathy Diabetes Mellitus Hyperlipidemia Hypertension Plan: We'll do bowel rest Continue with IV fluid Pain medication however patient is not in pain. Monitor potassium level Surgical team consult Labs and medication were reviewed.. Continue same treatment. Continue with symptomatic treatment. Resume home medication. Monitor labs and vitals. DVT and GI prophylaxis. Further recommendations as per clinical course of the patient DVT prophylaxis: Subcutaneous heparin GI Prophylaxis: Pepcid Prognosis is guarded
[2022-09-08 08:25] LABS: Basophils % (A) 0 %; Eosinophils # (A) 0.1 k/uL (0-0.7); Eosinophils % (A) 2 %; HCT 38.2 % (34.0-46.0); HGB 12.8 gm/dL (11.4-16.0); Lymphocytes # (A) 1.1 k/uL (1.0-4.8); Lymphocytes % (A) 27 %; MCH 30.9 pg (25.0-35.0); MCHC 33.6 g/dL (31.0-37.0); Mean Platelet Volume 7.2; Monocytes # (A) 0.2 k/uL (0-1.0); Monocytes % (A) 6 %; Neutrophils # (A) 2.4 k/uL (1.3-7.7); Neutrophils % (A) 62 %; Platelet Count 108 k/uL (150-450); RBC 4.15 m/uL (3.80-5.40); RDW 12.3 % (11.5-15.5); WBC 3.9 k/uL (3.8-10.6)
[2022-09-08 08:34] LABS: African American GFR (CKD) 56 (>60 ml/min/1.73 sqM); Anion Gap 7 mmol/L; Blood Urea Nitrogen 29 mg/dL (7-17); Calcium 9.3 mg/dL (8.4-10.2); Carbon Dioxide 26 mmol/L (22-30); Chloride 108 mmol/L (98-107); Glucose 96 mg/dL (74-99); Non-African American GFR(CKD) 48 (>60 ml/min/1.73 sqM); Potassium 4.4 mmol/L (3.5-5.1); Sodium 141 mmol/L (137-145)
[2022-09-08] MEDS ORDERED: FAMOTIDINE 20 MG/2 ML VIAL IV SCH (09:00)
[2022-09-08] MEDS: FAMOTIDINE 20 MG/2 ML VIAL IV SCH (10:00)
[2022-09-08] MEDS: HEPARIN SODIUM,PORCINE/PF 5,000 UNIT/0.5 ML SYRINGE SQ SCH ×2 (10:20→21:45)
[2022-09-08] MEDS ORDERED: LACTULOSE 20 GM/30 ML CUP PO ONE (10:37)
[2022-09-08] MEDS ORDERED: PEG 3350 (420 GM/BTL) + LYTES 4,000 ML BOTTLE PO ONE (10:38)
[2022-09-08] MEDS ORDERED: MAGNESIUM HYDROXIDE 2,400 MG/10 ML CUP PO ONE (10:38)
--- NOTE | 2022-09-08 12:19 | P.GSCN ---
History of Present Illness Consult date: 09/08/22 History of present illness: CHIEF COMPLAINT: Abdominal pain HISTORY OF PRESENT ILLNESS: This is a 62-year-old female who presented with abdominal pain and constipation. She was recently in the ER on August 30 and for constipation and required a disimpaction and was given enemas. She had good results. Patient was discharged with lactulose. She has had bowel movements but they've been small. Patient is mentally challenged. Most of history is obtained from the mother at bedside. Patient did have an episode of vomiting last night. There's been no blood reported in the stools. She's never had a colonoscopy. Patient was given an enema yesterday and did have a bowel movement. There is no family history of colon cancer. Computed tomography scan abdomen and pelvis increased soft tissue density in the lower rectum. Rectal mass not excluded. This could be some fecal material. No evidence of constipation. Normal appendix. Surgical service has been consulted in regards to abdominal pain and possible rectal mass. Patient currently has no abdominal pain. PAST MEDICAL HISTORY: See list. PAST SURGICAL HISTORY: See list. MEDICATIONS: See list. ALLERGIES: See list. SOCIAL HISTORY: No illicit drug use. REVIEW OF SYSTEMS: CONSTITUTIONAL: Denies fever or chills. HEENT: Denies blurred vision, vision changes, or eye pain. Denies hemoptysis ENDOCRINE: Denies heat or cold intolerance. CARDIOVASCULAR: Denies chest pain or pressure. RESPIRATORY: No shortness of breath. GASTROINTESTINAL: Denies abdominal pain. Denies nausea or vomiting. NEURO: Denies history of seizures. PSYCH: No depression or suicidal ideation HEMATOLOGIC: Denies bleeding disorders. LYMPHATIC: The patient denies any lumps and bumps around the neck. GENITOURINARY: Denies any blood in urine or increased urinary frequency. MUSCULOSKELETAL: Denies myalgias. Denies joint swelling. Denies decreased range of motion beyond patients baseline. SKIN: Denies pruitis. Denies rash. PHYSICAL EXAM: VITAL SIGNS: Reviewed GENERAL: Well-developed in no acute distress. HEENT: No sclera icterus. Extraocular movements grossly intact. Moist buccal mucosa. Head is atraumatic, normocephalic. Hears conversational speech. No nasal drainage. NECK: Supple without lymphadenopathy. CHEST: Non-labored respirations and equal bilateral excursions. CARDIOVASCULAR: Palpable 2+ radial pulses. ABDOMEN: Soft. Mildly distended. Nontender. MUSCULOSKELETAL: No clubbing or cyanosis. NEUROLOGIC: Nonverbal. No focal or lateralizing signs. Cranial nerves II through XII grossly intact. PSYCH: Awake and alert SKIN: Well perfused. Good skin turgor. LABORATORY DATA: WBC is 3.9 Hgb 12.8 platelets 108 Sodium 141 potassium 5.7 down to 4.4 creatinine 1.3 down to 1.1 IMAGING: Computed tomography scan as stated above ASSESSMENT: 1. Increased soft tissue density in the lower rectum. Likely fecal material. Rectal mass not excluded on CAT scan 2. Constipation 3. Hyperkalemia resolved 4. Acute kidney injury 5. Mentally challenged 6. Diabetes mellitus PLAN: -Patient scheduled for colonoscopy tomorrow, 09/09/[address] 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 Signing provider agrees with the documented findings, assessment, and plan of care. Past Medical History Past Medical History: Diabetes Mellitus, Hyperlipidemia, Hypertension Additional Past Medical History / Comment(s): kyphosis History of Any Multi-Drug Resistant Organisms: None Reported Past Surgical History: No Surgical Hx Reported Past Anesthesia/Blood Transfusion Reactions: No Reported Reaction Past Psychological History: Anxiety, Depression Smoking Status: Never smoker Past Alcohol Use History: None Reported Past Drug Use History: None Reported - Past Family History Mother Family Medical History: No Reported History Father Family Medical History: Congestive Heart Failure (CHF), Coronary Artery Disease (CAD) Medications and Allergies Home Medications Medication Instructions Recorded Confirmed Type FLUoxetine HCL [PROzac] 10 mg PO HS 06/27/20 09/08/22 History carvediloL [Coreg] 3.125 mg PO BID 06/27/20 09/08/22 History metFORMIN HCL ER [Glucophage XR] 1,000 mg PO HS 06/27/20 09/08/22 History Atorvastatin [Lipitor] 20 mg PO HS 09/08/22 09/08/22 History Docusate [Colace] 100 mg PO HS 09/08/22 09/08/22 History FLUoxetine HCL [PROzac] 20 mg PO HS 09/08/22 09/08/22 History Allergies Allergy/AdvReac Type Severity Reaction Status Date / Time No Known Allergies Allergy Verified 09/08/22 07:51 Surgical - Exam Vital Signs Temp Pulse Resp BP Pulse Ox 98.3 F 68 18 121/60 97 09/08/22 00:32 09/08/22 00:32 09/08/22 00:32 09/08/22 00:32 09/08/22 00:32 Results - Labs 09/08/22 08:02 09/08/22 08:02 Abnormal Lab Results - Last 24 Hours (Table) 09/08/22 09/08/22 09/08/22 Range/Units 03:06 03:06 04:41 Plt Count 105 L (150-450) k/uL Potassium 5.7 H 5.3 H (3.5-5.1) mmol/L Chloride (98-107) mmol/L BUN 33 H (7-17) mg/dL Creatinine 1.30 H (0.52-1.04) mg/dL Glucose 128 H (74-99) mg/dL Calcium 10.3 H (8.4-10.2) mg/dL Lipase 323 H (23-300) U/L 09/08/22 09/08/22 Range/Units 08:02 08:02 Plt Count 108 L (150-450) k/uL Potassium (3.5-5.1) mmol/L Chloride 108 H (98-107) mmol/L BUN 29 H (7-17) mg/dL Creatinine 1.19 H (0.52-1.04) mg/dL Glucose (74-99) mg/dL Calcium (8.4-10.2) mg/dL Lipase (23-300) U/L Diabetes panel 09/08/22 09/08/22 09/08/22 Range/Units 03:06 04:41 08:02 Sodium 139 141 (137-145) mmol/L Potassium 5.7 H 5.3 H 4.4 (3.5-5.1) mmol/L Chloride 102 108 H (98-107) mmol/L Carbon Dioxide 29 26 (22-30) mmol/L BUN 33 H 29 H (7-17) mg/dL Creatinine 1.30 H 1.19 H (0.52-1.04) mg/dL Glucose 128 H 96 (74-99) mg/dL Calcium 10.3 H 9.3 (8.4-10.2) mg/dL AST 22 (14-36) U/L ALT 34 (4-34) U/L Alkaline Phosphatase 83 (38-126) U/L Total Protein 7.1 (6.3-8.2) g/dL Albumin 4.4 (3.5-5.0) g/dL Calcium panel 09/08/22 09/08/22 Range/Units 03:06 08:02 Calcium 10.3 H 9.3 (8.4-10.2) mg/dL Albumin 4.4 (3.5-5.0) g/dL Pituitary panel 09/08/22 09/08/22 09/08/22 Range/Units 03:06 04:41 08:02 Sodium 139 141 (137-145) mmol/L Potassium 5.7 H 5.3 H 4.4 (3.5-5.1) mmol/L Chloride 102 108 H (98-107) mmol/L Carbon Dioxide 29 26 (22-30) mmol/L BUN 33 H 29 H (7-17) mg/dL Creatinine 1.30 H 1.19 H (0.52-1.04) mg/dL Glucose 128 H 96 (74-99) mg/dL Calcium 10.3 H 9.3 (8.4-10.2) mg/dL Adrenal panel 09/08/22 09/08/22 09/08/22 Range/Units 03:06 04:41 08:02 Sodium 139 141 (137-145) mmol/L Potassium 5.7 H 5.3 H 4.4 (3.5-5.1) mmol/L Chloride 102 108 H (98-107) mmol/L Carbon Dioxide 29 26 (22-30) mmol/L BUN 33 H 29 H (7-17) mg/dL Creatinine 1.30 H 1.19 H (0.52-1.04) mg/dL Glucose 128 H 96 (74-99) mg/dL Calcium 10.3 H 9.3 (8.4-10.2) mg/dL Total Bilirubin 0.4 (0.2-1.3) mg/dL AST 22 (14-36) U/L ALT 34 (4-34) U/L Alkaline Phosphatase 83 (38-126) U/L Total Protein 7.1 (6.3-8.2) g/dL Albumin 4.4 (3.5-5.0) g/dL
[2022-09-08] MEDS ORDERED: DEXTROSE 50% SYRINGE 50 ML IVP PRN ×2 (15:39)
[2022-09-08 16:59] LABS: Glucose,Whole Blood 100 mg/dL (70-110)
[2022-09-08] MEDS: INSULIN ASPART (NovoLOG) 100 UNIT/ML VIAL SQ SCH ×2 (17:06→21:52)
[2022-09-08 19:36] LABS: Glucose,Whole Blood 121 mg/dL (70-110)
[2022-09-09 05:52] LABS: Glucose,Whole Blood 92 mg/dL (70-110)
[2022-09-09] MEDS: INSULIN ASPART (NovoLOG) 100 UNIT/ML VIAL SQ SCH ×2 (07:37→13:05)
[2022-09-09 09:01] LABS: African American GFR (CKD) 55.3 (60.0-200.0); Anion Gap 8.7 mmol/L (10.00-18.00); BUN/Creat Ratio 16.58 Ratio (12.00-20.00); Blood Urea Nitrogen 19.9 mg/dL (9.0-27.0); Calcium 9.5 mg/dL (8.7-10.3); Carbon Dioxide 25.3 mmol/L (20.0-27.5); Non-African American GFR(CKD) 47.7 (60.0-200.0); Potassium 4.8 mmol/L (3.5-5.5)
[2022-09-09 09:46] LABS: HCT 40.2 % (37.2-46.3); HGB 12.7 g/dL (12.0-15.0); MCH 29.9 pg (27.0-32.0); MCHC 31.6 g/dL (32.0-37.0); MCV 94.6 fL (80.0-97.0); Mean Platelet Volume 10.4 fL (9.5-12.2); NRBC Per 100 WBC 0 /100 WBCS (0.0-0.0); Platelet Count 91 X 10*3/uL (140-440); RBC 4.25 X 10*6/uL (4.10-5.20); WBC 3.37 X 10*3/uL (4.50-10.00)
[2022-09-09 09:58] LABS: Basophils # (A) 0.01 X 10*3/uL (0.00-0.10); Basophils % (A) 0.3 %; Eosinophils # (A) 0.09 X 10*3/uL (0.04-0.35); Eosinophils % (A) 2.7 %; Immature Grans, Automated 0.3 %; Lymphocytes % (A) 35.6 %; Monocytes # (A) 0.37 X 10*3/uL (0.20-1.00); Neutrophils # (A) 1.69 X 10*3/uL (1.80-7.70); Neutrophils % (A) 50.1 %
[2022-09-09 09:59] LABS: RBC Morphology NORMAL
[2022-09-09] MEDS: HEPARIN SODIUM,PORCINE/PF 5,000 UNIT/0.5 ML SYRINGE SQ SCH (10:07)
[2022-09-09] MEDS: FAMOTIDINE 20 MG/2 ML VIAL IV SCH (11:06)
[2022-09-09 11:45] LABS: Glucose,Whole Blood 102 mg/dL (70-110)
[2022-09-09] MEDS ORDERED: PROPOFOL 10 MG/ML 20 ML VIAL IV ONE (13:45)
[2022-09-09] MEDS ORDERED: ONDANSETRON 4 MG/2 ML VIAL ONE (13:45)
[2022-09-09] MEDS ORDERED: LIDOCAINE 2% INJ 20 MG/ML (2 ML VIAL) ONE (13:45)
[2022-09-09] MEDS ORDERED: LACTATED RINGERS 1,000 ML IV ONE ×2 (13:47)
--- NOTE | 2022-09-09 14:14 | P.PCN ---
Date of Procedure: 09/09/22 Description of Procedure: PREOPERATIVE DIAGNOSIS: Abnormal computed tomography scan for rectal mass POSTOPERATIVE DIAGNOSIS: Tubular adenoma of descending colon Internal/external hemorrhoid, grade 2 OPERATION: Colonoscopy to the ascending colon Colonoscopy with hot snare polypectomy SURGEON: Charisma Cadena MD. ANESTHESIA: MAC. INDICATIONS: The patient is an 62-year-old male who presents with a normal computed tomography scan for rectal mass. Benefits and risks were described and informed consent was obtained. DESCRIPTION OF PROCEDURE: The patient had undergone a GoLYTELY prep. The patient had been brought into the operating room and laid in the left lateral decubitus position. After adequate intravenous sedation, the rectum was examined with 2% lidocaine jelly. External hemorrhoids were encountered. The rectal tone was within normal limits. No lesions were palpated in the rectal vault. An Olympus colonoscope was advanced to ascending colon however patient had a chronic cough prohibiting advancement of the scope to the cecum. The prep was good. No sigmoid diverticulosis was encountered. Colonic polyps were found and removed. No evidence of focal colitis was found. Retroflexion of the scope demonstrated grade 2 internal hemorrhoids without active bleeding or inflammation. The colon was desufflated. The patient had tolerated the procedure well. Withdrawal time was over 6 minutes. FINDINGS: Aronchick preparation quality scale 2 (1-5) Internal hemorrhoids, grade 2 External hemorrhoids, grade 2. No arteriovenous malformations. No sigmoid diverticulosis Removal of 1 polyps: - Snare polypectomy 50 cm from the anal verge, 10 mm flat villous adenoma, descending colon No focal colitis. RECOMMENDATIONS: Repeat colonoscopy 3 years2025
[2022-09-09 14:37] VITALS: BP 117/53; PULSE 65; RESP 16; TEMP 97.8
--- NOTE | 2022-09-09 16:29 | P.PN ---
Progress Note - Text Progress Note Date: 09/09/22 Colonoscopy findings discussed with patient's mother. Overall, patient stable for discharge from surgical standpoint. Diet as tolerated. No masses identified.
--- NOTE | 2022-09-11 18:14 | P.DS ---
Providers Date of admission: 09/08/22 06:14 Expected date of discharge: 09/09/22 Attending physician: Matthew Lopez MD Consults: 09/08/22 06:12 Consult Physician Routine Consulting Provider: Charisma Cadena Consult Reason/Comments: Abdominal pain, possible rectal mass Do you want consulting provider notified?: Yes, Notify in am Primary care physician: Luca Key Hospital Course: Final diagnosis Constipation 1 week with vomiting once, possibly secondary to rectal mass, mass ruled out on colonoscopy Hyperkalemia, improved Chronic urine incontinence Chronic kidney disease stage III, most likely diabetic nephropathy Diabetes Mellitus Hyperlipidemia Hypertension Discharge disposition Patient is being discharged in a stable condition with guarded prognosis to [facility]. Patient will follow-up with Dr. Key in the outpatient setting upon discharge. Patient is to continue with Colace 100 mg twice daily and outpatient follow-up with surgery as scheduled. Total time taken is greater than 35 minutes. Hospital course This is a 62-year-old female who was recently admitted with abdominal pain and constipation and concerns for possible masses noted on imaging. Patient underwent colonoscopy with general surgery Dr. Sun and was noted to be stool with no mass noted. These refer to consultation note for further HPI Patient will be continued on Colace twice daily and close outpatient follow-up. Prescription provided for repeat labs in the outpatient setting. Encouraged and recommend a daily scheduled bowel regimen. Currently no reports of chest pain, shortness of breath, or palpitations. Patient is afebrile. No reports of nausea or vomiting and patient is tolerating diet. Patient will be discharged home today. Physical exam: Gen: This is a 62-year-old female who was awake, alert and oriented 1-2, well- developed, well-nourished HEENT: Head is atraumatic, normocephalic. Pupils equal, round. Sclerae is anicteric. NECK: Supple. No JVD. No lymphadenopathy. No thyromegaly. LUNGS: Clear to auscultation. No wheezes or rhonchi. No intercostal retractions. HEART: Regular rate and rhythm. No murmur. ABDOMEN: Soft. Bowel sounds are present. No masses. No tenderness. EXTREMITIES: No pedal edema. No calf tenderness. NEUROLOGICAL: Patient is awake, alert and oriented x1-2 baseline. Please refer to medication reconciliation sheet for a list of medications. The impression and plan of care has been dictated by Pamela Sellers, Nurse Practitioner as directed. Dr. Jaren MD I have performed a history and examination and MDM of this patient, discussed the same with the dictator, and agree with the dictator's assessment and plan as written ,documented as a scribe. Based on total visit time, I have performed more than 50% of the visit. Patient Condition at Discharge: Stable Plan - Discharge Summary Discharge Rx Participant: No New Discharge Prescriptions: Continue metFORMIN HCL ER [Glucophage XR] 1,000 mg PO HS carvediloL [Coreg] 3.125 mg PO BID FLUoxetine HCL [PROzac] 10 mg PO HS FLUoxetine HCL [PROzac] 20 mg PO HS Atorvastatin [Lipitor] 20 mg PO HS Changed Docusate [Colace] 100 mg PO BID #60 tab Discharge Medication List FLUoxetine HCL [PROzac] 10 mg PO HS 06/27/20 [History] carvediloL [Coreg] 3.125 mg PO BID 06/27/20 [History] metFORMIN HCL ER [Glucophage XR] 1,000 mg PO HS 06/27/20 [History] Atorvastatin [Lipitor] 20 mg PO HS 09/08/22 [History] FLUoxetine HCL [PROzac] 20 mg PO HS 09/08/22 [History] Docusate [Colace] 100 mg PO BID #60 tab 09/09/22 [Rx] Follow up Appointment(s)/Referral(s): Luca Key MD [Primary Care Provider] - 1-2 days (Office is closed at time of discharge. Please call for appointment.) Charisma Cadena MD [STAFF PHYSICIAN] - As Needed Ambulatory/Diagnostic Orders: Complete Blood Count w/diff [LAB.AMB] Time Frame: 3 Days, Location: None Selected Activity/Diet/Wound Care/Special Instructions: Activity Limited until follow-up Recommend follow-up with surgery as needed Would continue bowel regimen and continue with Colace twice daily Follow-up with primary care provider on discharge Discharge Disposition: HOME SELF-CARE
== END 2022-09-09 16:56 | disposition home or self-care (01) | DRG 394 ==
LOC: EC 00:18 → 6NMEDSUR 06:14 → EEVIPCON 06:14 → 4SSUR 06:21
PROVIDERS: ADMIT Internal Medicine; ATTEND Internal Medicine
PROC: 0DBM8ZX Excision of Descending Colon, Via Natural or Artificial Opening Endoscopic, Diagnostic (ICD-10-PCS; principal; 2022-09-09 07:30)
DX: D12.4 Benign neoplasm of descending colon (principal); N17.9 Acute kidney failure, unspecified; K64.1 Second degree hemorrhoids; K64.4 Residual hemorrhoidal skin tags; E78.5 Hyperlipidemia, unspecified; E87.5 Hyperkalemia; F79 Unspecified intellectual disabilities; K59.00 Constipation, unspecified; E11.22 Type 2 diabetes mellitus with diabetic chronic kidney disease; I12.9 Hypertensive chronic kidney disease with stage 1 through stage 4 chronic kidney disease, or unspecified chronic kidney disease; F32.A Depression, unspecified; F41.9 Anxiety disorder, unspecified; M40.209 Unspecified kyphosis, site unspecified; N18.30 Chronic kidney disease, stage 3 unspecified; R32 Unspecified urinary incontinence; Z79.4 Long term (current) use of insulin; Z79.82 Long term (current) use of aspirin; Z79.84 Long term (current) use of oral hypoglycemic drugs; Z79.899 Other long term (current) drug therapy; Z82.49 Family history of ischemic heart disease and other diseases of the circulatory system
CPT/HCPCS: 36415; 45385; 74018; 74176; 80048; 80053; 82150; 83605; 83690; 84132; 85025; 88305; 93005; 94640; 96361; 96372; 96374; 96375; 99285

== ENCOUNTER 2023-02-04 03:11 | Emergency (ER) | payer MEDICARE, BC, OTHER ==
[2023-02-04 03:18] VITALS: TEMP 97.9
[2023-02-04] MEDS ORDERED: SODIUM CHLORIDE 0.9% 1,000 ML IV ONE (03:58)
[2023-02-04 04:19] LABS: Basophils % (A) 0 %; Eosinophils # (A) 0.1 k/uL (0-0.7); Eosinophils % (A) 1 %; HCT 40.9 % (34.0-46.0); HGB 13.6 gm/dL (11.4-16.0); Lymphocytes % (A) 16 %; MCH 31.4 pg (25.0-35.0); MCHC 33.2 g/dL (31.0-37.0); MCV 94.6 fL (80.0-100.0); Mean Platelet Volume 7.9; Monocytes # (A) 0.4 k/uL (0-1.0); Monocytes % (A) 7 %; Neutrophils # (A) 4.4 k/uL (1.3-7.7); Neutrophils % (A) 74 %; RBC 4.32 m/uL (3.80-5.40); RDW 12.9 % (11.5-15.5); WBC 5.9 k/uL (3.8-10.6)
[2023-02-04 04:20] LABS: Platelet Count 90 k/uL (150-450)
[2023-02-04 04:54] LABS: ALT 29 U/L (4-34); AST 33 U/L (14-36); African American GFR (CKD) 51 (>60 ml/min/1.73 sqM); Albumin 4.1 g/dL (3.5-5.0); Alkaline Phosphatase 82 U/L (38-126); Anion Gap 8 mmol/L; Blood Urea Nitrogen 30 mg/dL (7-17); Calcium 9.9 mg/dL (8.4-10.2); Carbon Dioxide 29 mmol/L (22-30); Chloride 100 mmol/L (98-107); Glucose 147 mg/dL (74-99); Lipase 145 U/L (23-300); Magnesium 1.8 mg/dL (1.6-2.3); Non-African American GFR(CKD) 45 (>60 ml/min/1.73 sqM); Potassium 4.9 mmol/L (3.5-5.1); Sodium 137 mmol/L (137-145); Total Protein 6.9 g/dL (6.3-8.2)
[2023-02-04 05:53] LABS: Appearance,Urine Clear (Clear); Bilirubin,Urine Negative (Negative); Blood,Urine Negative (Negative); Color,Urine Yellow; Glucose,Urine (UA) Negative (Negative); Ketones,Urine Negative (Negative); Leukocyte Esterase,Urine Negative (Negative); Nitrite,Urine Negative (Negative); Protein,Urine Negative (Negative); Urobilinogen,Urine <2.0 mg/dL (<2.0)
--- NOTE | 2023-02-04 06:19 | ED ---
General Adult HPI - General Chief complaint: Abdominal Pain Stated complaint: Nausea, Vomiting Time Seen by Provider: 02/04/23 03:41 Source: patient, family Mode of arrival: wheelchair - History of Present Illness Initial comments: This is a 62-year-old female with a past medical history including developmental delay and hypertension presented to the emergency Department with her family for concern for small bowel obstruction. There was reported that the patient has had a decreased bowel movement over last several days and had reported pain with attempted defecation. The patient also had some multiple episodes of vomiting and the family was concerned that he wanted to make sure there was no obstruction before just giving antinausea medications. The patient herself was pleasantly at baseline and did not appear in any acute distress. No further history was obtained at this time by the patient or by family. - Related Data Home Medications Medication Instructions Recorded Confirmed FLUoxetine HCL [PROzac] 10 mg PO HS 06/27/20 09/08/22 carvediloL [Coreg] 3.125 mg PO BID 06/27/20 09/08/22 metFORMIN HCL ER [Glucophage XR] 1,000 mg PO HS 06/27/20 09/08/22 Atorvastatin [Lipitor] 20 mg PO HS 09/08/22 09/08/22 FLUoxetine HCL [PROzac] 20 mg PO HS 09/08/22 09/08/22 Previous Rx's Medication Instructions Recorded Docusate [Colace] 100 mg PO BID #60 tab 09/09/22 Ondansetron Odt [Zofran ODT] 4 mg PO Q8HR PRN #10 tab 02/01/23 Allergies Allergy/AdvReac Type Severity Reaction Status Date / Time No Known Allergies Allergy Verified 09/08/22 07:51 Review of Systems ROS Statement: Those systems with pertinent positive or pertinent negative responses have been documented in the HPI. ROS Other: All systems not noted in ROS Statement are negative. Past Medical History Past Medical History: Diabetes Mellitus, Hyperlipidemia, Hypertension Additional Past Medical History / Comment(s): kyphosis History of Any Multi-Drug Resistant Organisms: None Reported Past Surgical History: No Surgical Hx Reported Additional Past Surgical History / Comment(s): eye surgery Past Anesthesia/Blood Transfusion Reactions: No Reported Reaction Past Psychological History: Anxiety, Depression Smoking Status: Never smoker Past Alcohol Use History: None Reported Past Drug Use History: None Reported - Past Family History Mother Family Medical History: No Reported History Father Family Medical History: Congestive Heart Failure (CHF), Coronary Artery Disease (CAD) General Exam Limitations: no limitations, altered mental status (At baseline) General appearance: alert, in no apparent distress Head exam: Present: atraumatic, normocephalic, normal inspection Eye exam: Present: normal appearance, PERRL Pupils: Present: normal accommodation ENT exam: Present: normal exam, normal oropharynx, mucous membranes moist Neck exam: Present: normal inspection, full ROM Respiratory exam: Present: normal lung sounds bilaterally Cardiovascular Exam: Present: regular rate, normal rhythm, normal heart sounds GI/Abdominal exam: Present: soft, normal bowel sounds Extremities exam: Present: normal inspection, full ROM Back exam: Present: normal inspection, full ROM Neurological exam: Present: alert, oriented X3, CN II-XII intact Psychiatric exam: Present: normal affect, normal mood Skin exam: Present: warm, dry Course Vital Signs 02/04/23 03:14 Temperature 97.9 F Pulse Rate 70 Respiratory 18 Rate Blood Pressure 124/65 O2 Sat by Pulse 98 Oximetry Medical Decision Making - Medical Decision Making Was pt. sent in by a medical professional or institution (, PA, HEEL EMERY BUFFER, urgent care, hospital, or intermediate...) When possible be specific @ -No Did you speak to anyone other than the patient for history (EMS, parent, family, police, friend...)? What history was obtained from this source @ -Yes, patient's family was at the bedside and provided all the history inc luding the patient's lack of bowel movements and concern for obstruction. The patient was resting in bed comfortably and she did state that she was at her baseline. Did you review nursing and triage notes (agree or disagree)? Why? @ -I reviewed and agree with nursing and triage notes Were old charts reviewed (outside hosp., previous admission, EMS record, old EKG, old radiological studies, urgent care reports/EKG's, intermediate records)? Report findings @ -No old charts were reviewed Differential Diagnosis (chest pain, altered mental status, abdominal pain women, abdominal pain men, vaginal bleeding, weakness, fever, dyspnea, syncope, headache, dizziness, GI bleed, back pain, seizure, CVA, palpatations, mental health)? @ -Small bowel obstruction, gastroenteritis, enteritis, ileus EKG interpreted by me (3pts min.). @ -None X-rays interpreted by me (1pt min.). @ -None done CT interpreted by me (1pt min.). @ -CT abdomen and pelvis with IV contrast was obtained and was interpreted by myself showing findings suggestive of an enteritis left lower quadrant with no evidence of obstruction. There is circumferential wall thickening of the distal soft tissues can be seen with reflux left esophagitis. U/S interpreted by me (1pt. min.). @ -None done What testing was considered but not performed or refused? (CT, X-rays, U/S, labs)? Why? @ -None What meds were considered but not given or refused? Why? @ -None Did you discuss the management of the patient with other professionals (professionals i.e. , PA, HEEL EMERY BUFFER, lab, RT, psych nurse, social work associate, tailman, teacher, certified juvenile probation officer, watch caser)? Give summary @ -No Was smoking cessation discussed for >3mins.? @ -No Was critical care preformed (if so, how long)? @ -No Were there social determinants of health that impacted care today? How? (Homelessness, low income, unemployed, alcoholism, drug addiction, transportation, low edu. Level, literacy, decrease access to med. care, [facility], rehab)? @ -No Was there de-escalation of care discussed even if they declined (Discuss DNR or withdrawal of care, Hospice)? DNR status @ -No What co-morbidities impacted this encounter? (DM, HTN, Smoking, COPD, CAD, Cancer, CVA, ARF, Chemo, Hep., AIDS, mental health diagnosis, sleep apnea, morbi d obesity)? @ -Developed mental delay, hypertension Was patient admitted / discharged? Hospital course, mention meds given and route, prescriptions, significant lab abnormalities, going to OR and other pertinent info. @ -The patient was seen and evaluated emergency department. Physical exam, the patient was resting in bed without any acute distress. Vital signs admission were stable. Due to the nature the patient's complaints, laboratory workup and computed tomography scan was obtained. All workup was within normal limits and negative. The patient likely had nausea and vomiting secondary to a gastroenteritis and the family was told to continue take her antinausea medications as previous he prescribed. They were advised to follow-up with the primary care physician for further workup and evaluations report back to the emergency department if her pain or symptoms became acutely worse. The patient's family was agreeable to this and the patient was discharged home in stable condition with her family. Undiagnosed new problem with uncertain prognosis? @ -No Drug Therapy requiring intensive monitoring for toxicity (Heparin, Nitro, Insulin, Cardizem)? @ -No Were any procedures done? @ -No Diagnosis/symptom? @ -Nausea, vomiting, NOS Acute, or Chronic, or Acute on Chronic? @ -Acute on chronic Uncomplicated (without systemic symptoms) or Complicated (systemic symptoms)? @ -Uncomplicated Side effects of treatment? @ -No Exacerbation, Progression, or Severe Exacerbation? @ -No Poses a threat to life or bodily function? How? (Chest pain, USA, CT, pneumonia, PE, COPD, DKA, ARF, appy, cholecystitis, CVA, Diverticulitis, Homicidal, Suicidal, threat to staff... and all critical care pts) @ -No - Lab Data Result diagrams: 02/04/23 04:09 02/04/23 04:09 Lab Results 02/04/23 02/04/23 02/04/23 Range/Units 04:09 04:09 05:45 WBC 5.9 (3.8-10.6) k/uL RBC 4.32 (3.80-5.40) m/uL Hgb 13.6 (11.4-16.0) gm/dL Hct 40.9 (34.0-46.0) % MCV 94.6 (80.0-100.0) fL MCH 31.4 (25.0-35.0) pg MCHC 33.2 (31.0-37.0) g/dL RDW 12.9 (11.5-15.5) % Plt Count 90 L (150-450) k/uL MPV 7.9 Neutrophils % 74 % Lymphocytes % 16 % Monocytes % 7 % Eosinophils % 1 % Basophils % 0 % Neutrophils # 4.4 (1.3-7.7) k/uL Lymphocytes # 1.0 (1.0-4.8) k/uL Monocytes # 0.4 (0-1.0) k/uL Eosinophils # 0.1 (0-0.7) k/uL Basophils # 0.0 (0-0.2) k/uL Sodium 137 (137-145) mmol/L Potassium 4.9 (3.5-5.1) mmol/L Chloride 100 (98-107) mmol/L Carbon Dioxide 29 (22-30) mmol/L Anion Gap 8 mmol/L BUN 30 H (7-17) mg/dL Creatinine 1.28 H (0.52-1.04) mg/dL Est GFR (CKD-EPI)AfAm 51 (>60 ml/min/1.73 sqM) Est GFR (CKD-EPI)NonAf 45 (>60 ml/min/1.73 sqM) Glucose 147 H (74-99) mg/dL Calcium 9.9 (8.4-10.2) mg/dL Magnesium 1.8 (1.6-2.3) mg/dL Total Bilirubin 1.0 (0.2-1.3) mg/dL AST 33 (14-36) U/L ALT 29 (4-34) U/L Alkaline Phosphatase 82 (38-126) U/L Total Protein 6.9 (6.3-8.2) g/dL Albumin 4.1 (3.5-5.0) g/dL Lipase 145 (23-300) U/L Urine Color Yellow Urine Appearance Clear (Clear) Urine pH 6.0 (5.0-8.0) Ur Specific Beebe 1.050 H (1.001-1.035) Urine Protein Negative (Negative) Urine Glucose (UA) Negative (Negative) Urine Ketones Negative (Negative) Urine Blood Negative (Negative) Urine Nitrite Negative (Negative) Urine Bilirubin Negative (Negative) Urine Urobilinogen <2.0 (<2.0) mg/dL Ur Leukocyte Esterase Negative (Negative) Disposition Clinical Impression: Nausea & vomiting, Gastroenteritis Disposition: HOME SELF-CARE Condition: Stable Instructions (If sedation given, give patient instructions): Gastroenteritis (DC), Acute Nausea and Vomiting (DC) Is patient prescribed a controlled substance at d/c from ED?: No Referrals: Luca Key MD [Primary Care Provider] - 1-2 days Time of Disposition: 06:15
--- NOTE | 2023-02-04 06:28 | CT ---
EXAMINATION TYPE: CT abdomen pelvis w con CT DLP: 1000 465.5 mGycm, Automated exposure control for dose reduction was used. DATE OF EXAM: 02/04/2023 4:54 AM COMPARISON: CT abdomen pelvis most recent from 09/08/2022. CLINICAL INDICATION:Female, 62 years old with history of Acute abdominal pain; TECHNIQUE: Standard CT of the abdomen and pelvis following the administration of 100 cc of Isovue 3 00 IV contrast material. Coronal and sagittal reformats were performed. FINDINGS: LOWER CHEST: Visualized lungs are clear. Cardiomegaly. ABDOMEN LIVER: Unremarkable GALLBLADDER AND BILE DUCTS: Unremarkable. PANCREAS: Unremarkable. SPLEEN: Unremarkable. ADRENAL GLANDS: Unremarkable. KIDNEYS AND URETERS: No evidence of hydronephrosis or renal calculus. The kidneys enhance symmetrical ly. Right renal 1.2 cm cyst. Contrast is demonstrated within both collecting systems on the delayed p hase. PELVIS BLADDER: Unremarkable REPRODUCTIVE: Stable calcification within the uterus which could relate to fibroid with stable right adnexal dystrophic calcification with soft tissue nodule which could relate to right ovarian exophyti c fibroid. ABDOMEN & PELVIS STOMACH AND BOWEL: Circumferential wall thickening of the distal esophagus. Mild colonic stool burden . Left lower quadrant small bowel short segment wall thickening (series 201, image 50). The appendix is within normal limits. No evidence of bowel obstruction. PERITONEUM: No evidence of pneumoperitoneum or free fluid. VASCULATURE: Mild atherosclerotic calcifications are present throughout the abdominal aorta and its b ranches. No evidence of aortic aneurysm. MUSCULOSKELETAL: No acute osseous abnormalities. Mild disc degeneration changes are present throughou t the thoracolumbar spine. Levoscoliotic curvature of the lumbar spine. LYMPH NODES: No gross evidence for lymphadenopathy. SOFT TISSUE/ABDOMINAL WALL: Small fat filled umbilical hernia. IMPRESSION: 1. Findings suggestive of an enteritis in the left lower quadrant. No evidence for obstruction. 2. Circumferential wall thickening of the distal esophagus which can be seen with reflux/esophagitis .
[2023-02-04 06:51] VITALS: BP 134/54; PULSE 71; RESP 19
== END 2023-02-04 06:55 | disposition home or self-care (01) ==
LOC: EC 03:11
DX: K52.9 Noninfective gastroenteritis and colitis, unspecified (principal); E11.9 Type 2 diabetes mellitus without complications; I10 Essential (primary) hypertension; E78.5 Hyperlipidemia, unspecified; F41.9 Anxiety disorder, unspecified; F32.A Depression, unspecified; Z79.84 Long term (current) use of oral hypoglycemic drugs; Z79.899 Other long term (current) drug therapy
CPT/HCPCS: 36415; 80053; 83690; 83735; 85025; 81003; 74177; 99284; 96360; Q9967

== ENCOUNTER 2023-08-19 09:19 | Inpatient (IN) | payer MEDICARE, BC, OTHER ==
--- NOTE | 2023-08-19 10:05 | ED ---
Lower Extremity Injury HPI - General Chief Complaint: Extremity Injury, Lower Stated Complaint: Fall, weakness Time Seen by Provider: 08/19/23 09:35 Source: family, RN notes reviewed Mode of arrival: wheelchair Limitations: no limitations - History of Present Illness Initial Comments: This is a 63-year-old female who presents to the emergency department for a possible left leg injury. Per family, patient is mentally challenged and lives with her mother. They do plan on having her move into an adult foster care facility in a couple of days, however the patient is unaware of this. She was transferring from the bed to the toilet with her walker, when her left leg gave out on her and she fell. Family states that she fell on her knees, however sinc e the fall she has not been putting any weight on the left leg. Her legs do give out on her frequently, however she has never been unable to walk before. She did not hit her head or lose consciousness. She does not take any blood thinners. Her family initially states that she was at her baseline mentally, however her sister showed up several hours later. She advised that she is very weak and unlike herself. She is usually sitting up, watching TV, and communicating with other people. However, she seems very weak, fatigued, and is only speaking very little. She is concerned that something more may be going on than the fall and possible leg pain. - Related Data Home Medications Medication Instructions Recorded Confirmed FLUoxetine HCL [PROzac] 10 mg PO HS 06/27/20 08/19/23 carvediloL [Coreg] 3.125 mg PO BID-W/MEALS 06/27/20 08/19/23 metFORMIN HCL ER [Glucophage XR] 1,000 mg PO HS 06/27/20 08/19/23 Atorvastatin [Lipitor] 20 mg PO HS 09/08/22 08/19/23 FLUoxetine HCL [PROzac] 20 mg PO HS 09/08/22 08/19/23 Aspirin EC [Ecotrin Low Dose] 81 mg PO DAILY 08/19/23 08/19/23 Cholecalciferol (Vitamin D3) 50 mcg PO DAILY 08/19/23 08/19/23 [Vitamin D3 (50 Mcg = 2000 Iu)] Docusate [Colace] 100 mg PO BID PRN 08/19/23 08/19/23 LORazepam [Ativan] 0.5 mg PO DAILY PRN 08/19/23 08/19/23 polyethylene glycoL 3350 [Miralax] 17 gm PO DAILY PRN 08/19/23 08/19/23 Allergies Allergy/AdvReac Type Severity Reaction Status Date / Time No Known Allergies Allergy Verified 08/19/23 20:25 Review of Systems ROS Statement: Those systems with pertinent positive or pertinent negative responses have been documented in the HPI. ROS Other: All systems not noted in ROS Statement are negative. Past Medical History Past Medical History: Diabetes Mellitus, Hyperlipidemia, Hypertension Additional Past Medical History / Comment(s): kyphosis History of Any Multi-Drug Resistant Organisms: None Reported Past Surgical History: No Surgical Hx Reported Additional Past Surgical History / Comment(s): eye surgery Past Anesthesia/Blood Transfusion Reactions: No Reported Reaction Past Psychological History: Anxiety, Depression Smoking Status: Never smoker Past Alcohol Use History: None Reported Past Drug Use History: None Reported - Past Family History Mother Family Medical History: No Reported History Father Family Medical History: Congestive Heart Failure (CHF), Coronary Artery Disease (CAD) General Exam Limitations: no limitations General appearance: alert, in no apparent distress Head exam: Present: atraumatic, normocephalic, normal inspection Eye exam: Present: normal appearance, PERRL, EOMI. Absent: scleral icterus, conjunctival injection, periorbital swelling Respiratory exam: Present: normal lung sounds bilaterally. Absent: respiratory distress, wheezes, rales, rhonchi, stridor Cardiovascular Exam: Present: regular rate, normal rhythm, normal heart sounds. Absent: systolic murmur, diastolic murmur, rubs, gallop, clicks Extremities exam: Present: other (Left leg is shortened and externally rotated. 2+ DP and PT pulses.) Neurological exam: Present: alert Psychiatric exam: Present: normal affect, normal mood Skin exam: Present: warm, dry, intact, normal color. Absent: rash Course Vital Signs 08/19/23 08/20/23 08/20/23 09:29 08:00 15:30 Temperature 98.5 F 98.4 F 98.2 F Pulse Rate 71 72 71 Respiratory 18 18 18 Rate Blood Pressure 113/67 106/63 108/71 O2 Sat by Pulse 98 97 97 Oximetry Medical Decision Making - Medical Decision Making This is a 63-year-old female who presents to the emergency department for a left leg injury and weakness. Was pt. sent in by a medical professional or institution? @ -No Did you speak to anyone other than the patient for history? @ -Family provided all of the history. Did you review nursing and triage notes? @ -Yes, and I agree, it is accurate with regards to the patient's symptoms. Were old charts reviewed? @ -No Differential Diagnosis? @ -Differential Musculoskeletal: Muscular strain, contusion, ligament sprain, fracture, arthritis, septic arthritis, bursitis, cellulitis, muscle spasm, nerve compression, DVT, arterial occlusion, herpes zoster, electrolyte abnormality, tumor.... This is not meant to be in all inclusive list EKG interpreted by me (3pts min.)? @ -EKG interpreted by me demonstrating the following: Sinus rhythm. Ventricular rate 64 bpm, OR interval 197 ms, QRS duration 123 ms, QTc 452 ms. X-rays interpreted by me (1pt min.)? @ -X-ray of the bilateral hips/pelvis, left femur, and left tib-fib obtained. My interpretation identifies no acute fractures. CT interpreted by me (1pt min.)? @ -CT scan of the pelvis obtained. My interpretation identifies no acute fractures. U/S interpreted by me (1pt. min.)? @ -Not obtained What testing was considered but not performed? (CT, X-rays, U/S, labs)? Why? @ -None What meds were considered but not given? Why? @ -None Did you discuss the management of the patient with other professionals? @ -Yes, Dr. Kaminski, who accepts the patient for admission. Did you reconcile home meds? @ -No Was smoking cessation discussed for >3mins.? @ -No Was critical care preformed (if so, how long)? @ -No Were there social determinants of health that impacted care today? How? (Homel essness, low income, unemployed, alcoholism, drug addiction, transportation, low edu. Level, literacy, decrease access to med. care, fci, rehab)? @ -No Was there de-escalation of care discussed even if they declined? (Discuss DNR or withdrawal of care, Hospice)? @ -No What co-morbidities impacted this encounter? (DM, HTN, Smoking, COPD, CAD, Can cer, CVA, Hep., AIDS, mental health diagnosis, sleep apnea, morbid obesity)? @ -DM, HLD, HTN, mental delay Was patient admitted / discharged? @ -Admitted. On arrival, we were initially under the impression that the family was essentially just concerned about a left leg injury given the fall and inability to put weight on it. We started with x-rays of the pelvis, bilateral hips, left femur, and left tib-fib. No acute process was identified. Patient did have obvious shortening and external rotation of the left lower extremity. We subsequently obtained a CT scan of the pelvis. Again, no acute process was identified. We stood the patient up to ambulate after Tylenol, and she was able to put pressure on both legs, but seemed confused. Patient's sister showed up after she had been in the emergency department for several hours. She expressed concern about the patient being weak and somewhat more confused than normal. She is usually much more active, sitting up watching TV, and communicating with family members. However she has been sleeping much more than normal and is less active, and she is more so concerned about the patient's mental state. We subsequently proceeded with additional workup including blood work, EKG, and urinalysis. Lab work demonstrates hyperkalemia with a potassium of 6.1, however this did have slight hemolysis. Patient also has a minor ELYSE. Urinalysis negative for signs of infection. Patient admitted to medicine for weakness. Repeat potassium ordered with results pending at the time of admission. Consult placed for PT/OT as well. Undiagnosed new problem with uncertain prognosis? @ -None Drug Therapy requiring intensive monitoring for toxicity (Heparin, Nitro, In sulin, Cardizem)? @ -None Were any procedures done? @ -None Diagnosis/symptom? @ -Weakness, hyperkalemia Acute, or Chronic, or Acute on Chronic? @ -Acute Uncomplicated (without systemic symptoms) or Complicated (systemic symptoms)? @ -Complicated Side effects of treatment? @ -None Exacerbation, Progression, or Severe Exacerbation] @ -Not applicable Poses a threat to life or bodily function? @ -Yes This case was discussed in detail with the attending ED physician, Dr. Benavidez. Presentation, findings, and treatment plan discussed in detail as well. - Lab Data Result diagrams: 08/19/23 16:42 08/20/23 08:04 Lab Results 08/19/23 08/19/23 08/19/23 Range/Units 13:50 16:42 16:42 WBC 4.4 (3.8-10.6) k/uL RBC 3.80 (3.80-5.40) m/uL Hgb 11.9 (11.4-16.0) gm/dL Hct 35.8 (34.0-46.0) % MCV 94.3 (80.0-100.0) fL MCH 31.4 (25.0-35.0) pg MCHC 33.3 (31.0-37.0) g/dL RDW 12.2 (11.5-15.5) % Plt Count 84 L (150-450) k/uL MPV 7.7 Neutrophils % 68 % Lymphocytes % 21 % Monocytes % 7 % Eosinophils % 1 % Basophils % 1 % Neutrophils # 3.0 (1.3-7.7) k/uL Lymphocytes # 0.9 L (1.0-4.8) k/uL Monocytes # 0.3 (0-1.0) k/uL Eosinophils # 0.1 (0-0.7) k/uL Basophils # 0.0 (0-0.2) k/uL Manual Slide Review Performed PT 10.2 (10.0-12.5) sec INR 0.9 (<1.2) APTT 22.2 (22.0-30.0) sec Sodium (137-145) mmol/L Potassium (3.5-5.1) mmol/L Chloride (98-107) mmol/L Carbon Dioxide (22-30) mmol/L Anion Gap mmol/L BUN (7-17) mg/dL Creatinine (0.52-1.04) mg/dL Est GFR (CKD-EPI)AfAm (>60 ml/min/1.73 sqM) Est GFR (CKD-EPI)NonAf (>60 ml/min/1.73 sqM) Glucose (74-99) mg/dL Plasma Lactic Acid Archie (0.7-2.0) mmol/L Calcium (8.4-10.2) mg/dL Phosphorus (2.5-4.5) mg/dL Magnesium (1.6-2.3) mg/dL Total Bilirubin (0.2-1.3) mg/dL AST (14-36) U/L ALT (4-34) U/L Alkaline Phosphatase (38-126) U/L Troponin I (0.000-0.034) ng/mL Total Protein (6.3-8.2) g/dL Albumin (3.5-5.0) g/dL Urine Color Colorless Urine Appearance Clear (Clear) Urine pH 5.5 (5.0-8.0) Ur Specific [place] 1.019 (1.001-1.035) Urine Protein Negative (Negative) Urine Glucose (UA) Negative (Negative) Urine Ketones Negative (Negative) Urine Blood Moderate H (Negative) Urine Nitrite Negative (Negative) Urine Bilirubin Negative (Negative) Urine Urobilinogen <2.0 (<2.0) mg/dL Ur Leukocyte Esterase Negative (Negative) Urine RBC 2 (0-5) /hpf Urine WBC 1 (0-5) /hpf Ur Squamous Epith Cells 3 (0-4) /hpf Urine Bacteria Rare H (None) /hpf Urine Mucus Rare H (None) /hpf 08/19/23 08/19/23 08/19/23 Range/Units 16:42 16:42 16:42 WBC (3.8-10.6) k/uL RBC (3.80-5.40) m/uL Hgb (11.4-16.0) gm/dL Hct (34.0-46.0) % MCV (80.0-100.0) fL MCH (25.0-35.0) pg MCHC (31.0-37.0) g/dL RDW (11.5-15.5) % Plt Count (150-450) k/uL MPV Neutrophils % % Lymphocytes % % Monocytes % % Eosinophils % % Basophils % % Neutrophils # (1.3-7.7) k/uL Lymphocytes # (1.0-4.8) k/uL Monocytes # (0-1.0) k/uL Eosinophils # (0-0.7) k/uL Basophils # (0-0.2) k/uL Manual Slide Review PT (10.0-12.5) sec INR (<1.2) APTT (22.0-30.0) sec Sodium 133 L (137-145) mmol/L Potassium 6.1 H* (3.5-5.1) mmol/L Chloride 108 H (98-107) mmol/L Carbon Dioxide 21 L (22-30) mmol/L Anion Gap 4 mmol/L BUN 42 H (7-17) mg/dL Creatinine 1.47 H (0.52-1.04) mg/dL Est GFR (CKD-EPI)AfAm 43 (>60 ml/min/1.73 sqM) Est GFR (CKD-EPI)NonAf 37 (>60 ml/min/1.73 sqM) Glucose 100 H (74-99) mg/dL Plasma Lactic Acid Archie 1.0 (0.7-2.0) mmol/L Calcium 9.1 (8.4-10.2) mg/dL Phosphorus 4.7 H (2.5-4.5) mg/dL Magnesium 1.9 (1.6-2.3) mg/dL Total Bilirubin 0.7 (0.2-1.3) mg/dL AST 28 (14-36) U/L ALT 16 (4-34) U/L Alkaline Phosphatase 69 (38-126) U/L Troponin I 0.015 (0.000-0.034) ng/mL Total Protein 6.5 (6.3-8.2) g/dL Albumin 3.8 (3.5-5.0) g/dL Urine Color Urine Appearance (Clear) Urine pH (5.0-8.0) Ur Specific [place] (1.001-1.035) Urine Protein (Negative) Urine Glucose (UA) (Negative) Urine Ketones (Negative) Urine Blood (Negative) Urine Nitrite (Negative) Urine Bilirubin (Negative) Urine Urobilinogen (<2.0) mg/dL Ur Leukocyte Esterase (Negative) Urine RBC (0-5) /hpf Urine WBC (0-5) /hpf Ur Squamous Epith Cells (0-4) /hpf Urine Bacteria (None) /hpf Urine Mucus (None) /hpf - Radiology Data Radiology results: report reviewed, image reviewed Disposition Clinical Impression: Weakness, Hyperkalemia Disposition: ADMITTED IP TO THIS [facility] Time of Disposition: 18:55
--- NOTE | 2023-08-19 10:41 | XR ---
EXAMINATION TYPE: XR Hip Bilateral and AP pelvis, XR femur LT, XR tibia fibula LT DATE OF EXAM: 08/19/2023 COMPARISON: CT abdomen and pelvis February 04, 2023 HISTORY: Pain after fall TECHNIQUE: A single AP view of the pelvis is obtained. Two views of the bilateral hips and left femur are obtained. 2 views left leg. FINDINGS: There is no acute displaced fracture evident in the pelvis. The sacroiliac joints appear symmetric and within normal limits. Pubic symphysis is intact. Wvby-ad-tszoklno superior joint space loss in the right. The overlying soft tissue appears unremarkable. Two views bilateral hips show no acute fracture or dislocation mild to moderate acetabular spurring i n the left hip is seen.. The overlying soft tissue is unremarkable bilaterally. 2 views left femur and leg show no acute displaced fracture. Mild to moderate high compartment degene rative changes in the left knee are seen. Overlying soft tissue is unremarkable. IMPRESSION: There is no acute fracture or dislocation in the pelvis, either hip, left femur, or left leg.
[2023-08-19] MEDS: ACETAMINOPHEN TAB 500 MG TAB PO STA (10:56)
--- NOTE | 2023-08-19 13:32 | CT ---
EXAMINATION TYPE: CT pelvis wo con DATE OF EXAM: 08/19/2023 COMPARISON: CT abdomen and pelvis February 04, 2023 HISTORY: Inability to ambulate, pain CT DLP: 422.1 mGycm Automated exposure control for dose reduction was used. FINDINGS: Scoliosis in the lower lumbar spine is redemonstrated. Multilevel facet arthropathy lower lumbar spin e is again seen. Moderate axial joint space loss in both hips redemonstrated. Moderate left sided cierra tabular spurring is again seen. No acute displaced fracture in the pelvis. Some heterotopic ossificat ion near the right iliac crest is redemonstrated. Sacroiliac joints are maintained. Pubic symphysis i s intact. No tee hernia or adenopathy is seen. Small calcified fibroid uterus is redemonstrated. No free flui d in the pelvis. No bowel obstruction. Stable small fat-containing umbilical hernia. IMPRESSION: No acute findings are evident. No significant change from most recent CT.
[2023-08-19] MEDS ORDERED: IBUPROFEN 800 MG TAB PO STA (13:46)
[2023-08-19] MEDS: KETOROLAC 15 MG/ML 1 ML VIAL IM STA (13:51)
[2023-08-19 14:45] LABS: Appearance,Urine Clear (Clear); Bacteria,Urine Rare /hpf; Bilirubin,Urine Negative (Negative); Blood,Urine Moderate (Negative); Color,Urine Colorless; Glucose,Urine (UA) Negative (Negative); Ketones,Urine Negative (Negative); Leukocyte Esterase,Urine Negative (Negative); Mucus,Urine Rare /hpf; Nitrite,Urine Negative (Negative); PH, Urine 5.5 (5.0-8.0); Protein,Urine Negative (Negative); RBC,Urine 2 /hpf (0-5); Specific Gravity,Urine 1.019 (1.001-1.035); Squamous Epithelial Cell,Urine 3 /hpf (0-4); Urobilinogen,Urine <2.0 mg/dL (<2.0); WBC,Urine 1 /hpf (0-5)
[2023-08-19] MEDS: SODIUM CHLORIDE 0.9% 1,000 ML IV STA (17:44)
[2023-08-19 17:56] LABS: Basophils % (A) 1 %; Eosinophils # (A) 0.1 k/uL (0-0.7); Eosinophils % (A) 1 %; HCT 35.8 % (34.0-46.0); HGB 11.9 gm/dL (11.4-16.0); Lymphocytes # (A) 0.9 k/uL (1.0-4.8); Lymphocytes % (A) 21 %; MCH 31.4 pg (25.0-35.0); MCHC 33.3 g/dL (31.0-37.0); MCV 94.3 fL (80.0-100.0); Mean Platelet Volume 7.7; Monocytes # (A) 0.3 k/uL (0-1.0); Monocytes % (A) 7 %; Neutrophils % (A) 68 %; RDW 12.2 % (11.5-15.5); WBC 4.4 k/uL (3.8-10.6)
[2023-08-19 18:01] LABS: INR 0.9 (<1.2); Partial Thromboplastin Time 22.2 sec (22.0-30.0); Prothrombin Time 10.2 sec (10.0-12.5)
[2023-08-19 18:44] LABS: ALT 16 U/L (4-34); African American GFR (CKD) 43 (>60 ml/min/1.73 sqM); Albumin 3.8 g/dL (3.5-5.0); Anion Gap 4 mmol/L; Blood Urea Nitrogen 42 mg/dL (7-17); Calcium 9.1 mg/dL (8.4-10.2); Carbon Dioxide 21 mmol/L (22-30); Chloride 108 mmol/L (98-107); Glucose 100 mg/dL (74-99); Non-African American GFR(CKD) 37 (>60 ml/min/1.73 sqM); Sodium 133 mmol/L (137-145); Total Bilirubin 0.7 mg/dL (0.2-1.3); Total Protein 6.5 g/dL (6.3-8.2)
[2023-08-19 18:46] LABS: AST 28 U/L (14-36); Alkaline Phosphatase 69 U/L (38-126); Magnesium 1.9 mg/dL (1.6-2.3); Phosphorus 4.7 mg/dL (2.5-4.5); Potassium 6.1 mmol/L (3.5-5.1)
[2023-08-19 18:52] LABS: Platelet Count 84 k/uL (150-450)
[2023-08-19] MEDS ORDERED: HYDROcodone/APAP 5-325MG 1 EACH TAB PO PRN (19:22)
[2023-08-19] MEDS ORDERED: ONDANSETRON 4 MG/2 ML VIAL IVP PRN (19:22)
[2023-08-19] MEDS ORDERED: NALOXONE 0.4 MG/ML 1 ML VIAL IV PRN (19:22)
[2023-08-19] MEDS ORDERED: ACETAMINOPHEN TAB 325 MG TAB PO PRN (19:22)
[2023-08-20] MEDS: INSULIN REGULAR 100 UNIT/ML VIAL (IV) IV ONE (01:39)
[2023-08-20] MEDS: DEXTROSE 50% SYRINGE 50 ML IVP STA (01:40)
[2023-08-20 02:07] LABS: Glucose,Whole Blood 200 mg/dL (70-110)
[2023-08-20 08:19] LABS: Glucose,Whole Blood 85 mg/dL (70-110)
[2023-08-20 08:50] LABS: Potassium 5.1 mmol/L (3.5-5.1)
[2023-08-20] MEDS ORDERED: LORazepam 0.5 MG TAB PO PRN (09:59)
[2023-08-20] MEDS: ASPIRIN 81 MG PO SCH (10:24)
[2023-08-20 13:30] LABS: African American GFR (CKD) 42 (>60 ml/min/1.73 sqM); Anion Gap 5 mmol/L; Blood Urea Nitrogen 42 mg/dL (7-17); Calcium 8.9 mg/dL (8.4-10.2); Carbon Dioxide 22 mmol/L (22-30); Chloride 109 mmol/L (98-107); Glucose 88 mg/dL (74-99); Non-African American GFR(CKD) 36 (>60 ml/min/1.73 sqM); Sodium 136 mmol/L (137-145)
[2023-08-20] MEDS ORDERED: DEXTROSE 50% SYRINGE 50 ML IVP PRN ×2 (16:53)
[2023-08-20 16:56] LABS: Glucose,Whole Blood 84 mg/dL (70-110)
[2023-08-20] MEDS: INSULIN ASPART (NovoLOG) 100 UNIT/ML VIAL SQ SCH (17:55)
[2023-08-20] MEDS: carvediloL 3.125 MG TAB PO SCH (17:57)
[2023-08-20 20:55] LABS: Glucose,Whole Blood 115 mg/dL (70-110)
[2023-08-20] MEDS: ATORVASTATIN 20 MG TAB PO SCH (21:24)
[2023-08-20] MEDS: FLUoxetine HCL 10 MG CAP PO SCH (21:24)
[2023-08-20] MEDS: FLUoxetine HCL 20 MG CAP PO SCH (21:24)
--- NOTE | 2023-08-21 00:12 | P.HPIM ---
History of Present Illness H&P Date: 08/20/23 Chief Complaint: Fall Patient is a 63-year-old female with a past medical history of hypertension, hyperlipidemia, diabetes type 2 [id number]-[id number] and mentally challenged was brought to the hospital by her family due to following left leg injury. Patient is currently lives with her mother and they were planning to move her into a lymphology care facility in a couple of days. Apparently patient was transferring from bed to the toilet with her walker and her left leg gave way and she fell on her left side. As per family patient fell on her knees and since then she is unable to bear weight on her left leg. Patient did have issues with ambulation previously but able to walk with a walker. Denied hitting her head. Since then patient is unable to ambulate by herself. Patient's sister came in several hours later and it has decided come to ER. At baseline she was able to sit up and watch TV, was able to communicate with family members but speaks very little. On admission x-ray of the femur, hip and tibia showed there is no acute fracture or dislocation in the pelvis. Either hip, left femur left leg. CT pelvis showed no acute findings evident. No significant change from most recent CT. EKG shows sinus rhythm. Moderate intraventricular conduction delay. Laboratory pressure sodium 133 potassium 6.1 chloride 108 bicarb is 21 BUN 42 and creatinine 1.47 and blood sugar 100 Troponin x 3-11 years and not elevated. Urinalysis showed moderate blood and R BC 2 and WBC 1 Review of Systems Complete review of systems could not be obtained from the patient except as per HPI ROS unobtainable: due to mental status Past Medical History Past Medical History: Diabetes Mellitus, Hyperlipidemia, Hypertension Additional Past Medical History / Comment(s): kyphosis History of Any Multi-Drug Resistant Organisms: None Reported Past Surgical History: No Surgical Hx Reported Additional Past Surgical History / Comment(s): eye surgery Past Anesthesia/Blood Transfusion Reactions: No Reported Reaction Past Psychological History: Anxiety, Depression Smoking Status: Never smoker Past Alcohol Use History: None Reported Past Drug Use History: None Reported - Past Family History Mother Family Medical History: No Reported History Father Family Medical History: Congestive Heart Failure (CHF), Coronary Artery Disease (CAD) Medications and Allergies Home Medications Medication Instructions Recorded Confirmed Type FLUoxetine HCL [PROzac] 10 mg PO HS 06/27/20 08/19/23 History carvediloL [Coreg] 3.125 mg PO BID-W/MEALS 06/27/20 08/19/23 History metFORMIN HCL ER [Glucophage XR] 1,000 mg PO HS 06/27/20 08/19/23 History Atorvastatin [Lipitor] 20 mg PO HS 09/08/22 08/19/23 History FLUoxetine HCL [PROzac] 20 mg PO HS 09/08/22 08/19/23 History Aspirin EC [Ecotrin Low Dose] 81 mg PO DAILY 08/19/23 08/19/23 History Cholecalciferol (Vitamin D3) 50 mcg PO DAILY 08/19/23 08/19/23 History [Vitamin D3 (50 Mcg = 2000 Iu)] Docusate [Colace] 100 mg PO BID PRN 08/19/23 08/19/23 History LORazepam [Ativan] 0.5 mg PO DAILY PRN 08/19/23 08/19/23 History polyethylene glycoL 3350 [Miralax] 17 gm PO DAILY PRN 08/19/23 08/19/23 History Allergies Allergy/AdvReac Type Severity Reaction Status Date / Time No Known Allergies Allergy Verified 08/19/23 20:25 Physical Exam Vitals: Vital Signs Temp Pulse Resp BP Pulse Ox 08/20/23 08:00 98.4 F 72 18 106/63 97 PHYSICAL EXAMINATION: Patient is lying in the bed comfortably, no acute distress, awake alert and oriented x 1.. HEENT: Normocephalic. Neck is supple. Pupils reactive. Nostrils clear. Oral cavity is moist. Neck reveals no JVD, carotid bruits, or thyromegaly. CHEST EXAMINATION: Trachea is central. Symmetrical expansion. Bibasilar diminished sounds. Kyphosis. Nonlabored breathing. CARDIAC: Normal S1, S2 with no gallops. No murmurs ABDOMEN: Soft. Bowel sounds normal. No organomegaly. No abdominal bruits. Extremities: reveal no edema. No clubbing or cyanosis Neurologically awake, alert, oriented x 1 able to move her extremities while in bed.. No gross focal deficits noted Skin: No rash or skin lesions. Psychiatric: Coperative. Could not be assessed completely. Musculoskeletal: No joint swelling or deformity. Results CBC & Chem 7: 08/19/23 16:42 08/20/23 08:04 Labs: Abnormal Lab Results - Last 24 Hours (Table) 08/19/23 08/19/23 08/19/23 Range/Units 13:50 16:42 16:42 Plt Count 84 L (150-450) k/uL Lymphocytes # 0.9 L (1.0-4.8) k/uL Sodium 133 L (137-145) mmol/L Potassium 6.1 H* (3.5-5.1) mmol/L Chloride 108 H (98-107) mmol/L Carbon Dioxide 21 L (22-30) mmol/L BUN 42 H (7-17) mg/dL Creatinine 1.47 H (0.52-1.04) mg/dL Glucose 100 H (74-99) mg/dL POC Glucose (mg/dL) (70-110) mg/dL Phosphorus 4.7 H (2.5-4.5) mg/dL Urine Blood Moderate H (Negative) Urine Bacteria Rare H (None) /hpf Urine Mucus Rare H (None) /hpf 08/19/23 08/20/23 Range/Units 20:19 02:05 Plt Count (150-450) k/uL Lymphocytes # (1.0-4.8) k/uL Sodium (137-145) mmol/L Potassium 6.1 H* (3.5-5.1) mmol/L Chloride (98-107) mmol/L Carbon Dioxide (22-30) mmol/L BUN (7-17) mg/dL Creatinine (0.52-1.04) mg/dL Glucose (74-99) mg/dL POC Glucose (mg/dL) 200 H (70-110) mg/dL Phosphorus (2.5-4.5) mg/dL Urine Blood (Negative) Urine Bacteria (None) /hpf Urine Mucus (None) /hpf Thrombosis Risk Factor Assmnt - DVT/VTE Prophylaxis DVT/VTE Prophylaxis: Pharmacologic Prophylaxis ordered Assessment and Plan Assessment: Status post fall likely due to generalized weakness in her left leg gave way. X-ray/CT pelvis showed no acute process. Hyperkalemia due to acute kidney injury Acute kidney injury likely prerenal with creatinine 1.47 on admission Hypovolemic hyponatremia Diabetes type 2 [id number] Hypertension Hyperlipidemia Kyphosis Anxiety/depression Mentally challenged DVT prophylaxis with heparin subcu Plan: Patient will be placed on IV hydration with normal saline. Imaging studies showed no acute fracture/dislocation. Continue with pain management and PT OT will be consulted. Insulin sliding scale. Metformin is on hold due to elevated creatinine level. Continue with home medications. Follow-up TSH, A1c level. Patient was given insulin/D50 with improvement in calcium level. Discussed with the family at bedside in detail. Prognosis is guarded. Time with Patient: Greater than 30
[2023-08-21] MEDS: HEPARIN SODIUM,PORCINE 5,000 UNIT/ML 1 ML VIAL SQ SCH (00:56)
[2023-08-21 05:50] LABS: Glucose,Whole Blood 110 mg/dL (70-110)
[2023-08-21 11:33] LABS: Basophils # (A) 0.02 X 10*3/uL (0.00-0.10); Basophils % (A) 0.5 %; Eosinophils # (A) 0.09 X 10*3/uL (0.04-0.35); Eosinophils % (A) 2.4 %; HCT 36.4 % (37.2-46.3); HGB 11.7 g/dL (12.0-15.0); Immature Grans, Automated 0 %; Lymphocytes # (A) 0.76 X 10*3/uL (0.90-5.00); Lymphocytes % (A) 20.6 %; MCH 30.2 pg (27.0-32.0); MCHC 32.1 g/dL (32.0-37.0); MCV 93.8 FL (80.0-97.0); Mean Platelet Volume 10.6 FL (9.5-12.2); Monocytes # (A) 0.43 X 10*3/uL (0.20-1.00); Monocytes % (A) 11.7 %; NRBC Per 100 WBC 0 X 10*3/uL (0.00-0.01); Neutrophils # (A) 2.39 X 10*3/uL (1.80-7.70); Neutrophils % (A) 64.8 %; Platelet Count 102 X 10*3/uL (140-440); RBC 3.88 X 10*6/uL (4.10-5.20); WBC 3.69 X 10*3/uL (4.50-10.00)
[2023-08-21 11:41] LABS: BUN/Creat Ratio 24.79 Ratio (12.00-20.00); Blood Urea Nitrogen 34.7 mg/dL (9.0-27.0); Calcium 9.2 mg/dL (8.7-10.3); Carbon Dioxide 22.7 mmol/L (21.6-31.8); Chloride 109 mmol/L (96-109); Creatine Kinase 34 U/L (26-186); Glucose 106 mg/dL (70-110); Potassium 5.1 mmol/L (3.5-5.5); Sodium 141 mmol/L (135-145)
[2023-08-21 12:19] LABS: Glucose,Whole Blood 99 mg/dL (70-110)
[2023-08-21 16:56] LABS: Glucose,Whole Blood 139 mg/dL (70-110)
[2023-08-21 20:02] LABS: Glucose,Whole Blood 140 mg/dL (70-110)
[2023-08-22] MEDS: DOCUSATE 100 MG CAP PO PRN (06:06)
[2023-08-22 06:07] LABS: Glucose,Whole Blood 157 mg/dL (70-110)
--- NOTE | 2023-08-22 06:53 | PN ---
PROGRESS NOTE DATE OF SERVICE: 08/21/2023 SUBJECTIVE: This 63-year-old woman was admitted with fall and weakness, is being closely monitored. No chest pain, no palpitations, no fever. The patient has acute kidney injury. PHYSICAL EXAMINATION: VITAL SIGNS: Pulse is 73, blood pressure n, respirations 16. CHEST: Scattered rhonchi and crackles. ABDOMEN: Soft. NERVOUS SYSTEM: Diffusely weak, barely nonverbal. ASSESSMENT: 1. Fall, generalized weakness. 2. Hyperkalemia. 3. Acute kidney injury. 4. Diabetes mellitus, type 2. 5. Hypertension. 6. Gait dysfunction. 7. Multiple medical issues. 8. Full code. RECOMMENDATIONS: Recommended to continue current management, continue symptomatic treatment, otherwise continue with hydration. Continue with rest of medications. PT, OT evaluation, and possible ECF rehab. Further recommendations to follow. KAYLAN / ELAINA: [id number] / [id number]
[2023-08-22] MEDS: polyethylene glycoL 3350 17 GM POWD.PACK PO PRN (09:32)
[2023-08-22 11:21] LABS: Basophils # (A) 0.03 X 10*3/uL (0.00-0.10); Basophils % (A) 0.8 %; Eosinophils # (A) 0.11 X 10*3/uL (0.04-0.35); Eosinophils % (A) 3.1 %; HCT 36.6 % (37.2-46.3); HGB 11.7 g/dL (12.0-15.0); Lymphocytes # (A) 1.03 X 10*3/uL (0.90-5.00); MCH 29.5 pg (27.0-32.0); MCV 92.4 FL (80.0-97.0); Mean Platelet Volume 10.4 FL (9.5-12.2); Monocytes # (A) 0.45 X 10*3/uL (0.20-1.00); Monocytes % (A) 12.7 %; NRBC Per 100 WBC 0 X 10*3/uL (0.00-0.01); Neutrophils # (A) 1.92 X 10*3/uL (1.80-7.70); Neutrophils % (A) 54.1 %; Platelet Count 103 X 10*3/uL (140-440); RBC 3.96 X 10*6/uL (4.10-5.20); WBC 3.55 X 10*3/uL (4.50-10.00)
[2023-08-22 11:26] LABS: Glucose,Whole Blood 152 mg/dL (70-110)
[2023-08-22 11:43] LABS: BUN/Creat Ratio 20.47 Ratio (12.00-20.00); Blood Urea Nitrogen 30.7 mg/dL (9.0-27.0); Calcium 9.1 mg/dL (8.7-10.3); Carbon Dioxide 23.6 mmol/L (21.6-31.8); Chloride 107 mmol/L (96-109); Glucose 109 mg/dL (70-110); Sodium 142 mmol/L (135-145)
--- NOTE | 2023-08-22 15:34 | XR ---
EXAMINATION TYPE: XR chest 1V portable DATE OF EXAM: 08/22/2023 HISTORY: Shortness of breath. COMPARISON: 12/06/2021 TECHNIQUE: Single view of the chest is submitted. FINDINGS: Demonstrated are scattered senescent parenchymal change. There is no evidence for focal infiltrate. The heart is stable. Pulmonary venous congestion without overt failure. Azygos lobe and fissure are n oted. Hilar and mediastinal structures are within normal limits. Degenerative changes are seen of the dorsal spine. IMPRESSION: 1. Pulmonary venous congestion without overt failure. Azygos lobe and fissure are noted.
[2023-08-22 16:19] LABS: Glucose,Whole Blood 122 mg/dL (70-110)
--- NOTE | 2023-08-22 18:05 | XR ---
EXAMINATION TYPE: XR knee complete bilateral DATE OF EXAM: 08/22/2023 3:23 PM CLINICAL INDICATION:Female, 63 years old with history of knee pain, fracture?; [facility] COMPARISON: None. TECHNIQUE: XR knee complete bilateral; examined in Frontal, lateral and oblique projections. FINDINGS: No evidence of any acute osseous pathology, soft tissue swelling, or joint effusion is no mega. Tricompartmental osteophyte formation involving the femoral condyles, tibial plateau and patella . Mild joint space narrowing. IMPRESSION: 1. No acute osseous pathology. 2. Mild to moderate tricompartmental osteoarthritic changes.
[2023-08-22 20:24] LABS: Glucose,Whole Blood 94 mg/dL (70-110)
--- NOTE | 2023-08-23 00:22 | PN ---
PROGRESS NOTE DATE OF SERVICE: 08/22/2023 SUBJECTIVE: This 63-year-old woman was admitted with fall and weakness, complaining of knee pain. The tibia-fibula x-rays were showing no acute fractures. The pelvis CT scan also showed no acute fractures. Chest x-ray is not available. PAST MEDICAL HISTORY: Reviewed. REVIEW OF SYSTEMS: A 14-point review is negative except as mentioned earlier. CURRENT MEDICATIONS: Reviewed include Gamerco, dose and rest of medications noted. PHYSICAL EXAMINATION: VITAL SIGNS: Pulse is 73, blood pressure 105/60, respirations 17. CHEST: A few scattered rhonchi and crackles. ABDOMEN: Soft. NERVOUS SYSTEM: Nonfocal. LABORATORY DATA: Reviewed. X-rays reviewed personally. ASSESSMENT: 1. Fall, generalized weakness. 2. Bilateral knee pain secondary to fall, rule out fracture. 3. Acute meniscal injury. 4. Hyperkalemia. 5. Acute kidney injury. 6. Diabetes mellitus, type 2. 7. Hypertension. 8. Gait dysfunction. 9. Multiple medical issues. RECOMMENDATIONS AND DISCUSSION: I recommended to continue current management, continue symptomatic treatment, otherwise I would also recommend x-ray knees and orthopedic evaluation symptomatic treatment. Discuss with her family and I would recommend PT OT evaluation, possible ECF rehab. DVT prophylaxis. Further recommendations to follow. MMODL / IJN: [id number] /
[2023-08-23 05:54] LABS: Glucose,Whole Blood 104 mg/dL (70-110)
[2023-08-23] MEDS: PANTOPRAZOLE 40 MG TABLET PO SCH (06:30)
[2023-08-23 08:40] LABS: Basophils # (A) 0.03 X 10*3/uL (0.00-0.10); Basophils % (A) 0.8 %; Eosinophils % (A) 2.8 %; HCT 37.4 % (37.2-46.3); HGB 12.2 g/dL (12.0-15.0); Lymphocytes # (A) 0.99 X 10*3/uL (0.90-5.00); Lymphocytes % (A) 27.5 %; MCHC 32.6 g/dL (32.0-37.0); MCV 91.9 FL (80.0-97.0); Mean Platelet Volume 10.2 FL (9.5-12.2); Monocytes # (A) 0.45 X 10*3/uL (0.20-1.00); Monocytes % (A) 12.5 %; NRBC Per 100 WBC 0 X 10*3/uL (0.00-0.01); Neutrophils # (A) 2.02 X 10*3/uL (1.80-7.70); Neutrophils % (A) 56.1 %; Platelet Count 106 X 10*3/uL (140-440); RBC 4.07 X 10*6/uL (4.10-5.20); RDW 11.9 % (11.5-14.5)
[2023-08-23 09:11] LABS: BUN/Creat Ratio 20.71 Ratio (12.00-20.00); Calcium 9.7 mg/dL (8.7-10.3); Carbon Dioxide 24.5 mmol/L (21.6-31.8); Chloride 107 mmol/L (96-109); Glucose 113 mg/dL (70-110); Potassium 5.1 mmol/L (3.5-5.5); Sodium 140 mmol/L (135-145)
[2023-08-23 11:51] LABS: Glucose,Whole Blood 93 mg/dL (70-110)
[2023-08-23 16:54] LABS: Glucose,Whole Blood 136 mg/dL (70-110)
--- NOTE | 2023-08-23 18:46 | P.CNOR ---
History of Present Illness - [facility] Consult date: 08/23/23 History of present illness: Patient is a pleasant 63 yo female seen at bedside today regarding consult for bilateral knee pain. Interview and history are limited due to patient's disability. She denies current pain and appears in no distress. She denies any complaints Review of Systems ROS unobtainable: due to mental status Past Medical History Past Medical History: Diabetes Mellitus, Hyperlipidemia, Hypertension Additional Past Medical History / Comment(s): kyphosis History of Any Multi-Drug Resistant Organisms: None Reported Past Surgical History: No Surgical Hx Reported Additional Past Surgical History / Comment(s): eye surgery Past Anesthesia/Blood Transfusion Reactions: No Reported Reaction Past Psychological History: Anxiety, Depression Smoking Status: Never smoker Past Alcohol Use History: None Reported Past Drug Use History: None Reported - Past Family History Mother Family Medical History: No Reported History Father Family Medical History: Congestive Heart Failure (CHF), Coronary Artery Disease (CAD) Medications and Allergies Home Medications Medication Instructions Recorded Confirmed Type FLUoxetine HCL [PROzac] 10 mg PO HS 06/27/20 08/19/23 History carvediloL [Coreg] 3.125 mg PO BID-W/MEALS 06/27/20 08/19/23 History metFORMIN HCL ER [Glucophage XR] 1,000 mg PO HS 06/27/20 08/19/23 History Atorvastatin [Lipitor] 20 mg PO HS 09/08/22 08/19/23 History FLUoxetine HCL [PROzac] 20 mg PO HS 09/08/22 08/19/23 History Aspirin EC [Ecotrin Low Dose] 81 mg PO DAILY 08/19/23 08/19/23 History Cholecalciferol (Vitamin D3) 50 mcg PO DAILY 08/19/23 08/19/23 History [Vitamin D3 (50 Mcg = 2000 Iu)] Docusate [Colace] 100 mg PO BID PRN 08/19/23 08/19/23 History LORazepam [Ativan] 0.5 mg PO DAILY PRN 08/19/23 08/19/23 History polyethylene glycoL 3350 [Miralax] 17 gm PO DAILY PRN 08/19/23 08/19/23 History Allergies Allergy/AdvReac Type Severity Reaction Status Date / Time No Known Allergies Allergy Verified 08/19/23 20:25 Physical Examination Inspection of bilateral lower extremities shows no deformity, wounds, erythema or swelling. Bilateral knees are nontender without effusion. She has painless ROM passively at both knees with flexion to 110 and extension 0. Both knees are ligamentously stable. Negative McMurrys. Calves are SNT. Motor and sensation grossly intact throughout bilateral lower extremities. 2+ DP and PT pulses and less than 2 sec cap refill present Results Xrays of knees show mild degenerative changes. No fractures - Labs Labs: Abnormal Lab Results - Last 24 Hours (Table) 08/22/23 08/23/23 08/23/23 Range/Units 16:17 06:16 06:16 WBC 3.60 L (4.50-10.00) X 10*3/uL RBC 4.07 L (4.10-5.20) X 10*6/uL Plt Count 106 L (140-440) X 10*3/uL BUN 29.0 H (9.0-27.0) mg/dL Est GFR (CKD-EPI) 42 L (>=60) BUN/Creatinine Ratio 20.71 H (12.00-20.00) Ratio Glucose 113 H (70-110) mg/dL POC Glucose (mg/dL) 122 H (70-110) mg/dL H & H 08/19/23 08/21/23 08/22/23 Range/Units 16:42 06:48 06:22 Hgb 11.9 11.7 L 11.7 L (11.4-16.0) gm/dL Hct 35.8 36.4 L 36.6 L (34.0-46.0) % 08/23/23 Range/Units 06:16 Hgb 12.2 (11.4-16.0) gm/dL Hct 37.4 (34.0-46.0) % Coagulation 08/19/23 Range/Units 16:42 INR 0.9 (<1.2) Result Diagrams: 08/23/23 06:16 08/23/23 06:16 - Diagnostic results Knee x-ray: report reviewed, image reviewed Assessment and Plan (1) Knee pain Narrative/Plan: There are no plans for immediate surgical intervention. Exam and studies are relatively benign. Recommend conservative treatment including pain management/NSAIDs, PT, rest, ice PRN. SHe may follow up as an outpatient for further management. Current Visit: Yes Status: Acute Code(s): M25.569 - PAIN IN UNSPECIFIED KNEE SNOMED Code(s): 8942030728 Time with Patient: Less than 30
[2023-08-23 19:59] LABS: Glucose,Whole Blood 130 mg/dL (70-110)
--- NOTE | 2023-08-24 02:55 | PN ---
PROGRESS NOTE DATE OF SERVICE: 08/23/2023 SUBJECTIVE: This is a 63-year-old woman, who was admitted with fall and weakness, is complaining of knee pain also. The x-rays are showing some DJD. No chest pain. No palpitations. No fever. Orthopedic consultation has been sought. OBJECTIVE: VITAL SIGNS: Pulse is 67, blood pressure 95/47, respirations 19. CHEST: Clear to auscultation. CARDIOVASCULAR: S1, S2. ABDOMEN: Soft. NERVOUS SYSTEM: Nonfocal. LABORATORY DATA: Reviewed. ASSESSMENT: 1. Fall and generalized weakness. 2. Bilateral knee pain secondary to fall, rule out fracture. 3. Acute meniscal injury to be ruled out. 4. Hyperkalemia, improved. 5. Acute kidney injury. 6. Diabetes mellitus, type 2. 7. Multiple medical issues. RECOMMENDATIONS: Recommend to continue current medications, continue symptomatic treatment. Repeat labs. Otherwise, orthopedic evaluation. The patient is on small dose of Coreg. The patient needs to be closely evaluated. I would recommend orthostatic vitals also. MMODL / IJN: [id number] /
[2023-08-24 05:58] LABS: Glucose,Whole Blood 100 mg/dL (70-110)
[2023-08-24 08:45] LABS: BUN/Creat Ratio 17.81 Ratio (12.00-20.00); Blood Urea Nitrogen 28.5 mg/dL (9.0-27.0); Calcium 9.4 mg/dL (8.7-10.3); Carbon Dioxide 22.9 mmol/L (21.6-31.8); Chloride 106 mmol/L (96-109); Glucose 105 mg/dL (70-110); Potassium 5.3 mmol/L (3.5-5.5); Sodium 139 mmol/L (135-145)
[2023-08-24 08:53] LABS: Basophils # (A) 0.02 X 10*3/uL (0.00-0.10); Basophils % (A) 0.6 %; Eosinophils # (A) 0.11 X 10*3/uL (0.04-0.35); Eosinophils % (A) 3.2 %; HCT 39.4 % (37.2-46.3); HGB 12.7 g/dL (12.0-15.0); Lymphocytes # (A) 0.88 X 10*3/uL (0.90-5.00); Lymphocytes % (A) 25.7 %; MCH 29.7 pg (27.0-32.0); MCHC 32.2 g/dL (32.0-37.0); MCV 92.1 FL (80.0-97.0); Mean Platelet Volume 10.2 FL (9.5-12.2); Monocytes # (A) 0.53 X 10*3/uL (0.20-1.00); Monocytes % (A) 15.5 %; NRBC Per 100 WBC 0 X 10*3/uL (0.00-0.01); Neutrophils # (A) 1.87 X 10*3/uL (1.80-7.70); Neutrophils % (A) 54.7 %; Platelet Count 102 X 10*3/uL (140-440); RBC 4.28 X 10*6/uL (4.10-5.20); WBC 3.42 X 10*3/uL (4.50-10.00)
[2023-08-24 11:40] LABS: Glucose,Whole Blood 98 mg/dL (70-110)
[2023-08-24 13:27] VITALS: BMI 32.0
[2023-08-24 15:13] VITALS: BP 129/54; PULSE 69; RESP 17; TEMP 97.8
--- NOTE | 2023-08-24 15:23 | P.DS ---
Providers Date of admission: 08/19/23 19:33 Expected date of discharge: 08/24/23 Attending physician: Eloise Kaminski Consults: 08/22/23 13:34 Consult Physician Urgent Consulting Provider: Lasha Torres Consult Reason/Comments: b/l knee pain post fall Do you want consulting provider notified?: Yes Primary care physician: Luca Key Hospital Course: Final diagnosis Fall with generalized weakness Bilateral knee pain secondary to fall, ruled out fractures Hyperkalemia Diabetes mellitus, type II Acute kidney injury likely prerenal, unknown if patient has chronic kidney disease may be possibly secondary to dehydration Hypovolemic hyponatremia Hypertension Hyperlipidemia Kyphosis History of anxiety/depression 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 Patient will follow-up with Dr. Key in the outpatient setting upon discharge. Patient is to follow-up with orthopedics outpatient as needed. Total time taken is greater than 35 minutes. Hospital course This is a 63-year-old female who was recently admitted with fall and generalized weakness with bilateral knee pain being closely monitored. Patient had multiple imagings including hips knees pelvis with no fractures noted and evaluated by orthopedics recommending conservative management with no plans of surgical intervention at this time and recommending physical therapy with pain control. Patient is improving and will be going to [facility] for continued PT/OT therapy. Patient has been accepted at [facility] for discharge today. Patient is a diabetic and recommend to continue with Accu-Cheks before meals and at bedtime and continue holding metformin for the next couple of days with repeat labs of BMP to monitor kidney functions and electrolytes as patient's creatinine mildly elevated at 1.5. Patient has history of being mentally impaired since due to a chromosome defect and needs assistance with meals and supervision with meals. Patient is continued on dysphagia 3 chopped diet and recommend to continue. Patient reports to feeling well and brother at bedside with questions and concerns that were answered. Currently no reports of chest pain, shortness of breath, or palpitations. Patient is afebrile. No reports of nausea or vomiting and patient is tolerating diet. Patient will be going to [facility] today. Physical exam: Gen: This is a 63-year-old female who is awake, alert and oriented x 2, baseline, well-developed, well-nourished, obese HEENT: Head is atraumatic, normocephalic. Pupils equal, round. Sclerae is anicteric. NECK: Supple. No JVD. No lymphadenopathy. No thyromegaly. LUNGS: Clear to auscultation. No wheezes or rhonchi. No intercostal retractions. HEART: Regular rate and rhythm. No murmur. ABDOMEN: Soft. Bowel sounds are present. No masses. No tenderness. EXTREMITIES: No pedal edema. No calf tenderness. NEUROLOGICAL: Patient is awake, alert and oriented x2. Cranial nerves 2 through 12 are grossly intact. Diffusely weak Please refer to medication reconciliation sheet for a list of medications. The impression and plan of care has been dictated by Pamela Sellers, Nurse Practitioner as directed. Dr. Ash MD I have performed a history and examination and MDM of this patient, discussed the same with the dictator, and agree with the dictator's assessment and plan as written ,documented as a scribe. Based on total visit time, I have performed more than 50% of the visit. Patient Condition at Discharge: Fair Plan - Discharge Summary Discharge Rx Participant: No New Discharge Prescriptions: New INSULIN ASPART (NovoLOG) [NovoLOG (formulary)] 0 unit SQ ACHS each Pantoprazole [Protonix] 40 mg PO AC-BRKFST tab Heparin Sodium,Porcine (1 ml) [Heparin Sodium] 5,000 unit SQ Q8HR each Continue carvediloL [Coreg] 3.125 mg PO BID-W/MEALS FLUoxetine HCL [PROzac] 10 mg PO HS FLUoxetine HCL [PROzac] 20 mg PO HS Atorvastatin [Lipitor] 20 mg PO HS polyethylene glycoL 3350 [Miralax] 17 gm PO DAILY PRN PRN Reason: Constipation Aspirin EC [Ecotrin Low Dose] 81 mg PO DAILY Docusate [Colace] 100 mg PO BID PRN PRN Reason: Constipation Cholecalciferol (Vitamin D3) [Vitamin D3 (50 Mcg = 2000 Iu)] 50 mcg PO DAILY LORazepam [Ativan] 0.5 mg PO DAILY PRN #3 tab PRN Reason: Anxiety Discontinued metFORMIN HCL ER [Glucophage XR] 1,000 mg PO HS Discharge Medication List FLUoxetine HCL [PROzac] 10 mg PO HS 06/27/20 [History] carvediloL [Coreg] 3.125 mg PO BID-W/MEALS 06/27/20 [History] Atorvastatin [Lipitor] 20 mg PO HS 09/08/22 [History] FLUoxetine HCL [PROzac] 20 mg PO HS 09/08/22 [History] Aspirin EC [Ecotrin Low Dose] 81 mg PO DAILY 08/19/23 [History] Cholecalciferol (Vitamin D3) [Vitamin D3 (50 Mcg = 2000 Iu)] 50 mcg PO DAILY 08/19/23 [History] Docusate [Colace] 100 mg PO BID PRN 08/19/23 [History] polyethylene glycoL 3350 [Miralax] 17 gm PO DAILY PRN 08/19/23 [History] Heparin Sodium,Porcine (1 ml) [Heparin Sodium] 5,000 unit SQ Q8HR each 08/24/23 [Rx] INSULIN ASPART (NovoLOG) [NovoLOG (formulary)] 0 unit SQ ACHS each 08/24/23 [Rx] LORazepam [Ativan] 0.5 mg PO DAILY PRN #3 tab 08/24/23 [Rx] Pantoprazole [Protonix] 40 mg PO AC-BRKFST tab 08/24/23 [Rx] Follow up Appointment(s)/Referral(s): Luca Key MD [Primary Care Provider] - 1-2 days Ty Hoyos MD [STAFF PHYSICIAN] - 1 Week Patient Instructions/Handouts: Hyperkalemia (DC), Fall Prevention (DC) Activity/Diet/Wound Care/Special Instructions: Patient is going to [facility] Activity as tolerated Weightbearing as tolerated Follow-up with orthopedics outpatient Continue holding metformin for now and follow-up with repeat BMP in 2 to 3 days Continue with sliding scale with Accu-Cheks before meals and at bedtime NovoLog sliding scale 0-150 equals 0 units 151-200 equals 2 units 201-250 equals 4 units 251-300 equals 6 units 301-350 equals 8 units 351-400 equals 10 units Please notify provider if blood sugar is 400 or above Continue using ice as needed to the knees and/or areas of pain Continue low potassium diet as well as consistent carb diet Continue dysphagia 3 chopped diet with aspiration precautions with head of the bed elevated 30-45 degrees Supervision with meals Discharge Disposition: TRANSFER TO SNF/ECF
[2023-08-24 16:41] LABS: Glucose,Whole Blood 156 mg/dL (70-110)
--- NOTE | 2023-08-28 11:14 | CDI ---
Documentation Clarification Form Date: 08/28/23 From: Emeka Ibarra, MYRA, RN Phone: [phone] Admit Date: 08/19/2023 07:33:00 PM Patient Name: Park Rodriguez Visit Number: [id number] Discharge Date: 08/24/2023 05:21:00 PM ATTENTION: The Clinical Documentation Specialists (CDI) and [facility] Coding Staff appreciate your assistance in clarifying documentation. Please respond to the clarification below the line at the bottom and electronically sign. The CDI & [facility] Coding staff will review the response and follow-up if needed. Please note: Queries are made part of the Legal Health Record. If you have any questions, please contact the author of this message via ITS. Dr. Aleman Fall with generalized weakness was documented in the H&P 08/19, daily progress notes and the DS on 08/23. Additional clarification regarding the etiology/cause of this symptom is requested. History/Risk Factors: 63 yo female presented to ED after a fall with generalized weakness. PMH DM, HTN, mentally impaired. (DS 08/23) Clinical Indicators ED note 08/19. She seems very weak, fatigued. Family expressed concern about the patient being weak and somewhat more confused than normal. PT eval / Pt requires 2 person assist to transfer, sit to stand. Demonstrates poor balance, has challenges with bed mobility, strength, transfers and ambulation. OT eval /4 Pt is developmentally delayed. LE weakness and poor standing balance. Pt has challenges with Basic ADLs, IADLs including dressing, bathing, transfers, toileting, functional mobility Ortho consult 08/22 Recommend conservative treatment including pain management/NSAIDs, PT, rest, ice PRN. Treatment: PT eval ordered 08/18, completed 08/20 OT eval ordered 08/18, completed 08/20 Ortho consult for bilat knee pain post fall ordered 08/21, completed 08/22 Nursing documentation 08/23 [facility] states patient was turn q2h with 2 person assist. Consult social work 08/20 for rehab placement Is there a corresponding diagnosis/etiology for this symptom of weakness? [ ]x Age related physical debility [ ] Senile debility [ ] Weakness with unknown etiology [ ] Unable to determine [ ] Other, please specify MTDD
== END 2023-08-24 17:21 | DRG 884 ==
LOC: EC 09:19 → 5NMEDONC 19:33 → 4SSUR 08-20 15:12
PROVIDERS: ADMIT Internal Medicine; ATTEND Internal Medicine
DX: R54 Age-related physical debility (principal); N17.9 Acute kidney failure, unspecified; E87.1 Hypo-osmolality and hyponatremia; E87.5 Hyperkalemia; F32.A Depression, unspecified; F41.9 Anxiety disorder, unspecified; M19.90 Unspecified osteoarthritis, unspecified site; E86.1 Hypovolemia; F79 Unspecified intellectual disabilities; M40.209 Unspecified kyphosis, site unspecified; W06.XXXA Fall from bed, initial encounter; E66.9 Obesity, unspecified; Z68.32 Body mass index [BMI] 32.0-32.9, adult; I12.9 Hypertensive chronic kidney disease with stage 1 through stage 4 chronic kidney disease, or unspecified chronic kidney disease; N18.9 Chronic kidney disease, unspecified; E11.22 Type 2 diabetes mellitus with diabetic chronic kidney disease; E78.5 Hyperlipidemia, unspecified; M25.562 Pain in left knee; M25.561 Pain in right knee; Z79.84 Long term (current) use of oral hypoglycemic drugs; Z79.899 Other long term (current) drug therapy
CPT/HCPCS: 36415; 71045; 72192; 73521; 80048; 80053; 81001; 82550; 83036; 83605; 83735; 84100; 84132; 84443; 84484; 85025; 85610; 85730; 93005; 96361; 96372; 96374; 99285

== ENCOUNTER 2023-12-08 19:53 | Emergency (ER) | payer MEDICARE, BC, OTHER ==
[2023-12-08 20:04] VITALS: BP 129/99; PULSE 73; RESP 19; TEMP 97.8
--- NOTE | 2023-12-08 20:49 | ED ---
General Adult HPI - General Chief complaint: Recheck/Abnormal Lab/Rx Stated complaint: possible overdose Time Seen by Provider: 12/08/23 20:22 Source: patient, family, EMS, RN notes reviewed, old records reviewed, Caregiver Mode of arrival: EMS Limitations: no limitations - History of Present Illness Initial comments: 63-year-old [facility] of medication error. Patient was administered a different residents trazodone, 200 mg. She is not normally on this medication. No physical complaints, the patient is meagan ewhat sleepy but is otherwise acting appropriately. Patient is on lorazepam as needed and diabetic medications as well as Prozac in the evening. - Related Data Home Medications Medication Instructions Recorded Confirmed FLUoxetine HCL [PROzac] 10 mg PO HS 06/27/20 08/19/23 carvediloL [Coreg] 3.125 mg PO BID-W/MEALS 06/27/20 08/19/23 Atorvastatin [Lipitor] 20 mg PO HS 09/08/22 08/19/23 FLUoxetine HCL [PROzac] 20 mg PO HS 09/08/22 08/19/23 Aspirin EC [Ecotrin Low Dose] 81 mg PO DAILY 08/19/23 08/19/23 Cholecalciferol (Vitamin D3) 50 mcg PO DAILY 08/19/23 08/19/23 [Vitamin D3 (50 Mcg = 2000 Iu)] Docusate [Colace] 100 mg PO BID PRN 08/19/23 08/19/23 polyethylene glycoL 3350 [Miralax] 17 gm PO DAILY PRN 08/19/23 08/19/23 Previous Rx's Medication Instructions Recorded Heparin Sodium,Porcine (1 ml) 5,000 unit SQ Q8HR each 08/24/23 [Heparin Sodium] INSULIN ASPART (NovoLOG) [NovoLOG 0 unit SQ ACHS each 08/24/23 (formulary)] LORazepam [Ativan] 0.5 mg PO DAILY PRN #3 tab 08/24/23 Pantoprazole [Protonix] 40 mg PO AC-BRKFST tab 08/24/23 Sennosides [Senokot] 8.6 mg PO BID #60 tab 08/24/23 Allergies Allergy/AdvReac Type Severity Reaction Status Date / Time No Known Allergies Allergy Verified 12/08/23 20:04 Review of Systems ROS Statement: Those systems with pertinent positive or pertinent negative responses have been documented in the HPI. ROS Other: All systems not noted in ROS Statement are negative. Past Medical History Past Medical History: Diabetes Mellitus, Hyperlipidemia, Hypertension Additional Past Medical History / Comment(s): kyphosis History of Any Multi-Drug Resistant Organisms: None Reported Past Surgical History: No Surgical Hx Reported Additional Past Surgical History / Comment(s): eye surgery Past Anesthesia/Blood Transfusion Reactions: No Reported Reaction Past Psychological History: Anxiety, Depression Smoking Status: Never smoker Past Alcohol Use History: None Reported Past Drug Use History: None Reported - Past Family History Mother Family Medical History: No Reported History Father Family Medical History: Congestive Heart Failure (CHF), Coronary Artery Disease (CAD) General Exam General appearance: alert, in no apparent distress Head exam: Present: atraumatic, normocephalic Eye exam: Present: normal appearance, PERRL ENT exam: Present: normal exam Neck exam: Present: normal inspection. Absent: tenderness, meningismus Respiratory exam: Present: normal lung sounds bilaterally. Absent: respiratory distress, wheezes Cardiovascular Exam: Present: regular rate, normal rhythm GI/Abdominal exam: Present: soft. Absent: distended, tenderness, guarding Extremities exam: Present: normal inspection, normal capillary refill Neurological exam: Present: alert Psychiatric exam: Present: normal affect, normal mood Skin exam: Present: warm, dry, intact Course Vital Signs 12/08/23 20:01 Temperature 97.8 F Pulse Rate 73 Respiratory 19 Rate Blood Pressure 129/99 O2 Sat by Pulse 98 Oximetry Medical Decision Making - Medical Decision Making Was pt. sent in by a medical professional or institution (, PA, CLERICAL SUPPORT SPECIALIST, urgent care, hospital, or snf...) When possible be specific @ -No Did you speak to anyone other than the patient for history (EMS, parent, family, police, friend...)? What history was obtained from this source @ -She obtained from family and caregiver. Did you review nursing and triage notes (agree or disagree)? Why? @ -I reviewed and agree with nursing and triage notes Were old charts reviewed (outside hosp., previous admission, EMS record, old EKG, old radiological studies, urgent care reports/EKG's, snf records)? Report findings @ -No old charts were reviewed Differential Diagnosis accidental ingestion of trazodone 200 mg EKG interpreted by me (3pts min.). @ -Sinus rhythm rate of 73, IN interval 194, QRS duration 109, QTc [address] segment changes. X-rays interpreted by me (1pt min.). @ -None done CT interpreted by me (1pt min.). @ -None done U/S interpreted by me (1pt. min.). @ -None done What testing was considered but not performed or refused? (CT, X-rays, U/S, labs)? Why? @ -None What meds were considered but not given or refused? Why? @ -None Did you discuss the management of the patient with other professionals (professionals i.e. Dr., PA, CLERICAL SUPPORT SPECIALIST, lab, RT, psych nurse, social service agency director, loom overhauler, teacher, agricultural extension officer, renal case manager)? Give summary @ -No Was smoking cessation discussed for >3mins.? @ -No Was critical care preformed (if so, how long)? @ -No Were there social determinants of health that impacted care today? How? (Homelessness, low income, unemployed, alcoholism, drug addiction, transportation, low edu. Level, literacy, decrease access to med. care, correction, rehab)? @ -No Was there de-escalation of care discussed even if they declined (Discuss DNR or withdrawal of care, Hospice)? DNR status @ -No What co-morbidities impacted this encounter? (DM, HTN, Smoking, COPD, CAD, Cancer, CVA, ARF, Chemo, Hep., AIDS, mental health diagnosis, sleep apnea, morbid obesity)? @ -[depression, diabetes Was patient admitted / discharged? Hospital course, mention meds given and route, prescriptions, significant lab abnormalities, going to OR and other pertinent info. @ -63-year-old female presenting for accidental ingestion of trazodone. Dose of 200 mg. Patient is alert, somewhat sleepy with stable vitals. She is in sinus rhythm with normal intervals. [facility] and will return with any new symptoms or issues. Will hold her dose of Prozac this evening and not give Ativan, all other medications can be administered. Undiagnosed new problem with uncertain prognosis? @ -No Drug Therapy requiring intensive monitoring for toxicity (Heparin, Nitro, Insulin, Cardizem)? @ -No Were any procedures done? @ -No Diagnosis/symptom? @ -Accidental trazodone ingestion Acute, or Chronic, or Acute on Chronic? @ -Acute Uncomplicated (without systemic symptoms) or Complicated (systemic symptoms)? @ -Default Side effects of treatment? @ -No Exacerbation, Progression, or Severe Exacerbation? @ -No Poses a threat to life or bodily function? How? (Chest pain, [place], [place], pneumonia, PE, COPD, DKA, ARF, appy, cholecystitis, CVA, Diverticulitis, Homicidal, Suicidal, threat to staff... and all critical care pts) @ -No Disposition Clinical Impression: Accidental drug ingestion Disposition: HOME SELF-CARE Condition: Fair Instructions (If sedation given, give patient instructions): Medication Safety for Older Adults (ED) Is patient prescribed a controlled substance at d/c from ED?: No Referrals: None,Stated [Primary Care Provider] - 1-2 days Time of Disposition: 20:49
== END 2023-12-08 21:56 | disposition home or self-care (01) ==
LOC: EC 19:53
DX: R79.9 Abnormal finding of blood chemistry, unspecified (principal); T43.215A Adverse effect of selective serotonin and norepinephrine reuptake inhibitors, initial encounter
CPT/HCPCS: 93005; 99283

== ENCOUNTER 2024-02-08 12:27 | Emergency (ER) | payer MEDICARE, BC ==
[2024-02-08] MEDS ORDERED: SODIUM CHLORIDE 0.9% 500 ML BAG ONE (13:00)
[2024-02-08] MEDS ORDERED: SODIUM CHLORIDE 0.9% 100 ML BAG ONE (13:00)
[2024-02-08] MEDS ORDERED: CALCIUM GLUCONATE IN NACL 100 ML IVPB ONE (14:36)
[2024-02-08] MEDS ORDERED: SODIUM ZIRCONIUM CYCLOSILICATE 10 GM PACKET ONE (18:28)
--- NOTE | 2024-02-28 08:39 | CT ---
Patient: Park Rodriguez Ordering Physician: Unknown, Unknown ID: [id number] Phone, Pager: Phone: N /A Pager: N/A : 1960 Age/Gender: 63Y, F Primary Location: N/A Procedure: CT brain w/o Study Date: 02/08/2024 1:06:00 PM EXAMINATION TYPE: CT brain wo con DATE OF EXAM: 02/08/2024 COMPARISON: 12/06/2021 INDICATION: Mental status changes DLP: 1230.4 mGycm, Automated exposure control for dose reduction was used. CONTRAST: None CT of the brain is performed utilizing 3 mm thick sections through the posterior fossa and 3 mm thick sections through the remaining calvarium. Study is performed within 24 hours of arrival to the hosp ital. No abnormal hyperdensity is present to suggest an acute intracranial hemorrhage. No mass lesion is evident. No acute infarcts are evident. Periventricular white matter hypodensity is present, likely on the bas is of chronic white matter ischemic changes. Findings appear stable from comparison. Ventricles and sulci are prominent for the patient age. Paranasal sinuses and mastoid air cells within the [id number] are clear. IMPRESSION: 1. No acute intracranial process. Follow up MRI can be performed as clinically indicated. 2. Chronic appearing periventricular white matter ischemic changes with age-related atrophy. No signi ficant interval change is evident.
--- NOTE | 2024-03-05 13:05 | XR ---
Patient: Park Rodriguez A Ordering Physician: Unknown, Unknown ID: [id number] Phone, Pager: Phone: N /A Pager: N/A : 1960 Age/Gender: 63Y, F Primary Location: N/A Procedure: XR Chest 1 View Por table Study Date: 02/08/2024 1:10:00 PM EXAMINATION TYPE: TEMPORARY DATE OF EXAM: 02/08/2024 HISTORY: Shortness of breath. COMPARISON: 08/22/2023 TECHNIQUE: Single view of the chest is submitted. FINDINGS: Demonstrated are scattered senescent parenchymal change. There is no evidence for focal infiltrate. Chronic elevation right hemidiaphragm. The heart is stable. Hilar and mediastinal structures are within normal limits. Degenerative changes are seen of the dorsal spine. IMPRESSION: 1. Chronic changes without evidence for acute pulmonary disease.
== END 2024-02-08 18:30 | disposition home or self-care (01) ==
LOC: EC 12:27
CPT/HCPCS: 70450; 71045; 93005; 96360; 96361; 99285

== ENCOUNTER 2024-03-05 08:26 | Inpatient (IN) | payer MEDICARE, BC, OTHER ==
[2024-03-05] MEDS: SODIUM CHLORIDE 0.9% 1,000 ML IV STA (09:07)
--- NOTE | 2024-03-05 09:20 | ED ---
General Adult HPI - General Chief complaint: Weakness Stated complaint: weakness Time Seen by Provider: 03/05/24 08:30 Source: patient, EMS, RN notes reviewed, old records reviewed Mode of arrival: EMS Limitations: altered mental status - History of Present Illness Initial comments: This is a 63-year-old female who presents to the emergency department who is developmentally delayed all the history comes from the caregiver and the sister. According to the caregiver she has been occasionally vomiting typically when some food gags her. Patient though got up this morning and was very weak and was unable to get up and use her walker on her own so they decided to bring her to the emergency department. At 1 point she mentioned her belly hurt but then after that she denied it hurt. When I saw her patient did not mention any abdominal pain when I asked her but she is not a very reliable historian. Patient is had no fever chills patient's had no diarrhea. Patient does have a history of constipation. - Related Data Home Medications Medication Instructions Recorded Confirmed FLUoxetine HCL [PROzac] 10 mg PO HS@192906/27/20 03/05/24 carvediloL [Coreg] 3.125 mg PO BID@06/27/20 03/05/24 Atorvastatin [Lipitor] 20 mg PO HS@192909/08/22 03/05/24 FLUoxetine HCL [PROzac] 20 mg PO HS@192909/08/22 03/05/24 Docusate [Colace] 100 mg PO DAILY@62908/19/23 03/05/24 polyethylene glycoL 3350 [Miralax] 17 gm PO DAILY@629 PRN 08/19/23 03/05/24 Aspirin 81 mg PO DAILY@182903/05/24 03/05/24 Cholecalciferol [Vitamin D3 (25 25 mcg PO DAILY@62903/05/24 03/05/24 Mcg = 1000 Iu)] Omeprazole [PriLOSEC] 20 mg PO BID@629,192903/05/24 03/05/24 metFORMIN HCL ER [Glucophage XR] 1,000 mg PO HS@192903/05/24 03/05/24 Previous Rx's Medication Instructions Recorded LORazepam [Ativan] 0.5 mg PO DAILY PRN #3 tab 08/24/23 Allergies Allergy/AdvReac Type Severity Reaction Status Date / Time No Known Allergies Allergy Verified 03/05/24 11:28 Review of Systems ROS Statement: Those systems with pertinent positive or pertinent negative responses have been documented in the HPI. ROS Other: All systems not noted in ROS Statement are negative. Past Medical History Past Medical History: Diabetes Mellitus, Hyperlipidemia, Hypertension Additional Past Medical History / Comment(s): kyphosis History of Any Multi-Drug Resistant Organisms: None Reported Past Surgical History: No Surgical Hx Reported Additional Past Surgical History / Comment(s): eye surgery Past Anesthesia/Blood Transfusion Reactions: No Reported Reaction Past Psychological History: Anxiety, Depression Smoking Status: Never smoker Past Alcohol Use History: None Reported Past Drug Use History: None Reported - Past Family History Mother Family Medical History: No Reported History Father Family Medical History: Congestive Heart Failure (CHF), Coronary Artery Disease (CAD) General Exam - General Exam Comments Initial Comments: GENERAL: Patient is well-developed and well-nourished. Patient is nontoxic and well- hydrated and is in no acute distress. ENT: Neck is soft and supple. No significant lymphadenopathy is noted. Oropharynx is clear. Moist mucous membranes. Neck has full range of motion without eliciting any pain. EYES: The sclera were anicteric and conjunctiva were pink and moist. Extraocular movements were intact and pupils were equal round and reactive to light. Eyelids were unremarkable. PULMONARY: Unlabored respirations. Good breath sounds bilaterally. No audible rales rhonchi or wheezing was noted. CARDIOVASCULAR: There is a regular rate and rhythm without any murmurs gallops or rubs. ABDOMEN: Soft and nontender with normal bowel sounds. SKIN: Skin is clear with no lesions or rashes and otherwise unremarkable. NEUROLOGIC: Patient is alert and oriented x 1. This is her baseline cranial nerves II through XII are grossly intact. Motor and sensory are also intact. Normal speech, volume and content. Symmetrical smile. MUSCULOSKELETAL: Normal extremities with adequate strength and full range of motion. LYMPHATICS: No significant lymphadenopathy is noted PSYCHIATRIC: Unable to assess Limitations: altered mental status Course Vital Signs 03/05/24 03/05/24 03/05/24 08:28 08:44 09:44 Temperature 98.9 F Pulse Rate 84 78 79 Respiratory 16 16 16 Rate Blood Pressure 86/38 101/54 97/54 O2 Sat by Pulse 97 97 98 Oximetry 03/05/24 10:35 Temperature Pulse Rate 86 Respiratory 21 Rate Blood Pressure 114/88 O2 Sat by Pulse 96 Oximetry Medical Decision Making - Medical Decision Making EKG is interpreted by myself EKG shows a sinus rhythm with frequent PVCs at 81 bpm. Over the 196 QRS is 112 QT interval 391 QTc is 428. Patient's EKG shows no ST segment ovation or depression Was pt. sent in by a medical professional or institution ([facility], [employer] [employer], urgent care, hospital, or intermediate...) When possible be specific @ -No Did you speak to anyone other than the patient for history (EMS, parent, family, police, friend...)? What history was obtained from this source @ -No Did you review nursing and triage notes (agree or disagree)? Why? @ -I reviewed and agree with nursing and triage notes Were old charts reviewed (outside hosp., previous admission, EMS record, old EKG, old radiological studies, urgent care reports/EKG's, intermediate records)? Report findings @ -No old charts were reviewed Differential Diagnosis? @ -Differential Weakness: Hypoglycemia, shock, sepsis, hyponatremia, anemia, infection, LA, ETOH, adverse medicine reaction, overdose, stroke, this is not meant to be an all-inclusive list. EKG interpreted by me (3pts min.). @ -As above X-rays interpreted by me (1pt min.). @ -KUB shows no acute abnormality CT interpreted by me (1pt min.). @ -None done U/S interpreted by me (1pt. min.). @ -None done What testing was considered but not performed or refused? (CT, X-rays, U/S, labs)? Why? @ -None What meds were considered but not given or refused? Why? @ -None Did you discuss the management of the patient with other professionals (professionals i.e. [facility], [employer] [employer], lab, RT, psych nurse, clinical social worker, engraver pantograph, teacher, hospital chief financial officer, correctional counselor/case manager)? Give summary @ -I spoke with Dr. Montiel he agreed admit the patient admit the patient wrote admitting orders Was smoking cessation discussed for >3mins.? @ -No Was critical care preformed (if so, how long)? @ -No Were there social determinants of health that impacted care today? How? (Homelessness, low income, unemployed, alcoholism, drug addiction, trans portation, low edu. Level, literacy, decrease access to med. care, group home, rehab)? @ -No Was there de-escalation of care discussed even if they declined (Discuss DNR or withdrawal of care, Hospice)? DNR status @ -No What co-morbidities impacted this encounter? (DM, HTN, Smoking, COPD, CAD, Cancer, CVA, ARF, Chemo, Hep., AIDS, mental health diagnosis, sleep apnea, morbid obesity)? @ -None Was patient admitted / discharged? Hospital course, mention meds given and route, prescriptions, significant lab abnormalities, going to OR and other pertinent info. @ -Patient had lab work done x-rays done and it was determined that she had a urinary tract infection she was given a couple grams of Rocephin a liter of fluid and then we tried to ambulate her and she was grossly unsuccessful. At this point time I spoke with Dr. Montiel he agreed to admit her I admitted her and wrote admitting orders Undiagnosed new problem with uncertain prognosis? @ -No Drug Therapy requiring intensive monitoring for toxicity (Heparin, Nitro, Insulin, Cardizem)? @ -No Were any procedures done? @ -No Diagnosis/symptom? @ -Urinary tract infection Acute, or Chronic, or Acute on Chronic? @ -Acute Uncomplicated (without systemic symptoms) or Complicated (systemic symptoms)? @ -Complicated Side effects of treatment? @ -No Exacerbation, Progression, or Severe Exacerbation? @ -No Poses a threat to life or bodily function? How? (Chest pain, USA, LA, pneumonia, PE, COPD, DKA, ARF, appy, cholecystitis, CVA, Diverticulitis, Homicidal, Suicidal, threat to staff... and all critical care pts) @ -Yes this could lead to sepsis and endorgan dysfunction Diagnosis/symptom? @ -Generalized weakness Acute, or Chronic, or Acute on Chronic? @ -Acute Uncomplicated (without systemic symptoms) or Complicated (systemic symptoms)? @ -Complicated Side effects of treatment? @ -None Exacerbation, Progression, or Severe Exacerbation] @ -No Poses a threat to life or bodily function? @ -Yes this could lead to a fall and further morbidity or mortality - Lab Data Result diagrams: 03/05/24 09:10 03/05/24 09:10 Lab Results 03/05/24 03/05/24 03/05/24 Range/Units 09:10 09:10 09:10 WBC 7.1 (3.8-10.6) k/uL RBC 3.66 L (3.80-5.40) m/uL Hgb 11.4 (11.4-16.0) gm/dL Hct 34.8 (34.0-46.0) % MCV 94.9 (80.0-100.0) fL MCH 31.2 (25.0-35.0) pg MCHC 32.9 (31.0-37.0) g/dL RDW 13.3 (11.5-15.5) % Plt Count 84 L (150-450) k/uL MPV 8.1 Neutrophils % 86 % Lymphocytes % 5 % Monocytes % 7 % Eosinophils % 1 % Basophils % 0 % Neutrophils # 6.1 (1.3-7.7) k/uL Lymphocytes # 0.4 L (1.0-4.8) k/uL Monocytes # 0.5 (0-1.0) k/uL Eosinophils # 0.0 (0-0.7) k/uL Basophils # 0.0 (0-0.2) k/uL Manual Slide Review Performed RBC Morphology Normal PT 10.5 (10.0-12.5) sec INR 1.0 (<1.2) APTT 24.4 (22.0-30.0) sec Sodium (137-145) mmol/L Potassium (3.5-5.1) mmol/L Chloride (98-107) mmol/L Carbon Dioxide (22-30) mmol/L Anion Gap mmol/L BUN (7-17) mg/dL Creatinine (0.52-1.04) mg/dL Est GFR (CKD-EPI)AfAm (>60 ml/min/1.73 sqM) Est GFR (CKD-EPI)NonAf (>60 ml/min/1.73 sqM) Glucose (74-99) mg/dL Plasma Lactic Acid Archie (0.7-2.0) mmol/L Calcium (8.4-10.2) mg/dL Magnesium (1.6-2.3) mg/dL Total Bilirubin (0.2-1.3) mg/dL AST (14-36) U/L ALT (4-34) U/L Alkaline Phosphatase (38-126) U/L Troponin I (0.000-0.034) ng/mL Total Protein (6.3-8.2) g/dL Albumin (3.5-5.0) g/dL Urine Color Yellow Urine Appearance Cloudy H (Clear) Urine pH 5.5 (5.0-8.0) Ur Specific Mcneal 1.016 (1.001-1.035) Urine Protein 1+ H (Negative) Urine Glucose (UA) Negative (Negative) Urine Ketones Negative (Negative) Urine Blood Large H (Negative) Urine Nitrite Negative (Negative) Urine Bilirubin Negative (Negative) Urine Urobilinogen <2.0 (<2.0) mg/dL Ur Leukocyte Esterase Large H (Negative) Urine RBC 18 H (0-5) /hpf Urine WBC 87 H (0-5) /hpf Urine WBC Clumps Many H (None) /hpf Ur Squamous Epith Cells 1 (0-4) /hpf Urine Bacteria Few H (None) /hpf Urine Mucus Occasional H (None) /hpf 03/05/24 03/05/24 03/05/24 Range/Units 09:10 09:10 09:10 WBC (3.8-10.6) k/uL RBC (3.80-5.40) m/uL Hgb (11.4-16.0) gm/dL Hct (34.0-46.0) % MCV (80.0-100.0) fL MCH (25.0-35.0) pg MCHC (31.0-37.0) g/dL RDW (11.5-15.5) % Plt Count (150-450) k/uL MPV Neutrophils % % Lymphocytes % % Monocytes % % Eosinophils % % Basophils % % Neutrophils # (1.3-7.7) k/uL Lymphocytes # (1.0-4.8) k/uL Monocytes # (0-1.0) k/uL Eosinophils # (0-0.7) k/uL Basophils # (0-0.2) k/uL Manual Slide Review RBC Morphology PT (10.0-12.5) sec INR (<1.2) APTT (22.0-30.0) sec Sodium 133 L (137-145) mmol/L Potassium 5.0 (3.5-5.1) mmol/L Chloride 99 (98-107) mmol/L Carbon Dioxide 27 (22-30) mmol/L Anion Gap 7 mmol/L BUN 41 H (7-17) mg/dL Creatinine 1.80 H (0.52-1.04) mg/dL Est GFR (CKD-EPI)AfAm 34 (>60 ml/min/1.73 sqM) Est GFR (CKD-EPI)NonAf 29 (>60 ml/min/1.73 sqM) Glucose 206 H (74-99) mg/dL Plasma Lactic Acid Archie 2.0 (0.7-2.0) mmol/L Calcium 9.5 (8.4-10.2) mg/dL Magnesium 2.2 (1.6-2.3) mg/dL Total Bilirubin 0.9 (0.2-1.3) mg/dL AST 18 (14-36) U/L ALT 12 (4-34) U/L Alkaline Phosphatase 82 (38-126) U/L Troponin I 0.022 (0.000-0.034) ng/mL Total Protein 6.1 L (6.3-8.2) g/dL Albumin 3.7 (3.5-5.0) g/dL Urine Color Urine Appearance (Clear) Urine pH (5.0-8.0) Ur Specific Mcneal (1.001-1.035) Urine Protein (Negative) Urine Glucose (UA) (Negative) Urine Ketones (Negative) Urine Blood (Negative) Urine Nitrite (Negative) Urine Bilirubin (Negative) Urine Urobilinogen (<2.0) mg/dL Ur Leukocyte Esterase (Negative) Urine RBC (0-5) /hpf Urine WBC (0-5) /hpf Urine WBC Clumps (None) /hpf Ur Squamous Epith Cells (0-4) /hpf Urine Bacteria (None) /hpf Urine Mucus (None) /hpf Disposition Clinical Impression: Generalized weakness, Urinary tract infection Disposition: ADMITTED IP TO THIS [facility] Referrals: Wade Oropeza DO [Primary Care Provider] - 1-2 days Time of Disposition: 11:46
[2024-03-05 09:28] LABS: Basophils % (A) 0 %; Eosinophils % (A) 1 %; HCT 34.8 % (34.0-46.0); HGB 11.4 gm/dL (11.4-16.0); Lymphocytes # (A) 0.4 k/uL (1.0-4.8); Lymphocytes % (A) 5 %; MCH 31.2 pg (25.0-35.0); MCHC 32.9 g/dL (31.0-37.0); MCV 94.9 fL (80.0-100.0); Mean Platelet Volume 8.1; Monocytes # (A) 0.5 k/uL (0-1.0); Monocytes % (A) 7 %; Neutrophils # (A) 6.1 k/uL (1.3-7.7); Neutrophils % (A) 86 %; RBC 3.66 m/uL (3.80-5.40); RDW 13.3 % (11.5-15.5); WBC 7.1 k/uL (3.8-10.6)
[2024-03-05 09:33] LABS: ALT 12 U/L (4-34); AST 18 U/L (14-36); African American GFR (CKD) 34 (>60 ml/min/1.73 sqM); Albumin 3.7 g/dL (3.5-5.0); Alkaline Phosphatase 82 U/L (38-126); Anion Gap 7 mmol/L; Blood Urea Nitrogen 41 mg/dL (7-17); Calcium 9.5 mg/dL (8.4-10.2); Carbon Dioxide 27 mmol/L (22-30); Chloride 99 mmol/L (98-107); Glucose 206 mg/dL (74-99); Magnesium 2.2 mg/dL (1.6-2.3); Non-African American GFR(CKD) 29 (>60 ml/min/1.73 sqM); Sodium 133 mmol/L (137-145); Total Bilirubin 0.9 mg/dL (0.2-1.3); Total Protein 6.1 g/dL (6.3-8.2)
[2024-03-05 09:34] LABS: Partial Thromboplastin Time 24.4 sec (22.0-30.0); Prothrombin Time 10.5 sec (10.0-12.5)
[2024-03-05 10:25] LABS: Appearance,Urine Cloudy (Clear); Bacteria,Urine Few /hpf; Bilirubin,Urine Negative (Negative); Blood,Urine Large (Negative); Color,Urine Yellow; Glucose,Urine (UA) Negative (Negative); Ketones,Urine Negative (Negative); Leukocyte Esterase,Urine Large (Negative); Mucus,Urine Occasional /hpf; Nitrite,Urine Negative (Negative); PH, Urine 5.5 (5.0-8.0); Protein,Urine 1+ (Negative); RBC,Urine 18 /hpf (0-5); Specific Gravity,Urine 1.016 (1.001-1.035); Squamous Epithelial Cell,Urine 1 /hpf (0-4); Urobilinogen,Urine <2.0 mg/dL (<2.0); WBC,Urine 87 /hpf (0-5)
--- NOTE | 2024-03-05 10:32 | XR ---
EXAMINATION TYPE: XR KUB DATE OF EXAM: 03/05/2024 COMPARISON: 09/08/2022 INDICATION: Abdomen pain constipation TECHNIQUE: Single view abdomen FINDINGS: There is a nonspecific bowel gas pattern. Air is within the colon. No significant fecal retention ronny dent. Psoas margins are normal. No organomegaly is present. No suspicious calcifications present. IMPRESSION: 1. Nonspecific abdomen. 2. No significant fecal retention. [facility], , 03/05/2024 10:29 AM
[2024-03-05 10:40] LABS: Platelet Count 84 k/uL (150-450)
[2024-03-05 10:41] LABS: RBC Morphology Normal
[2024-03-05] MEDS: cefTRIAXone IN SWFI 1,000 MG/10 ML SYRINGE IVP STA (11:03)
[2024-03-05] MEDS: SODIUM CHLORIDE 0.9% 1,000 ML IV ONE (11:59)
[2024-03-05] MEDS ORDERED: NALOXONE 0.4 MG/ML 1 ML VIAL IV PRN (13:16)
[2024-03-05] MEDS ORDERED: ALPRAZolam 0.25 MG TAB PO PRN (13:16)
[2024-03-05] MEDS ORDERED: LACTULOSE 20 GM/30 ML CUP PO PRN (13:16)
[2024-03-05] MEDS ORDERED: LORazepam 0.5 MG TAB PO PRN (13:16)
[2024-03-05] MEDS ORDERED: CALCIUM CARBONATE 500 MG CHEWABLE PO PRN (13:16)
[2024-03-05] MEDS: ENOXAPARIN 40 MG/0.4 ML SYRINGE SQ SCH (14:13)
[2024-03-05] MEDS: ENOXAPARIN 30 MG/0.3 ML SYRINGE SQ SCH (14:20)
[2024-03-05] MEDS ORDERED: metFORMIN 500 MG TAB PO SCH (17:30)
[2024-03-05] MEDS: ONDANSETRON 4 MG/2 ML VIAL IVP PRN (18:00)
[2024-03-05] MEDS: ASPIRIN 81 MG PO SCH (18:25)
[2024-03-05] MEDS: ATORVASTATIN 20 MG TAB PO SCH (19:41)
[2024-03-05] MEDS: MELATONIN 3 MG TABLET PO PRN (19:41)
[2024-03-05] MEDS: FLUoxetine HCL 20 MG CAP PO SCH (19:41)
[2024-03-05] MEDS: carvediloL 3.125 MG TAB PO SCH (19:41)
[2024-03-05] MEDS: ACETAMINOPHEN TAB 325 MG TAB PO PRN (19:42)
[2024-03-05] MEDS: FLUoxetine HCL 10 MG CAP PO SCH (19:42)
--- NOTE | 2024-03-05 21:15 | P.HPIM ---
History of Present Illness H&P Date: 03/05/24 Chief Complaint: Increased weakness This is a pleasant 63-year-old patient I saw in the ER this afternoon. Patient follows with Judy Mo from Dr. Oropeza's office.. Chronic stable medical condition include diabetes, hyperlipidemia, hypertension,. 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 Patient is a resident of [facility]. Patient's guardian is aware mother Madison Rodrgiuez and her Sister Stacey. This morning when patient woke up she found it difficult to wake up. [place] r eally weak. Not able to get up and get about. Rather lethargic. Tired. No obvious fever and chills reported. Patient is found to have some altered mentation this morning. Patient is found to have infected urine in the ER started on ceftriaxone. Patient did have some breakfast in the ER. Review of systems: GEN.: Tired EYES: None HEENT: Decreased hearing e NECK: None RESPIRATORY: None CARDIOVASCULAR: None GASTROINTESTINAL: None GENITOURINARY: None MUSCULOSKELETAL: [Joint pains LYMPHATICS: None HEMATOLOGICAL: None PSYCHIATRY: Forgetful NEUROLOGICAL: Uses a walker Social history: Patient's guardian is her mother Madison Rodriguez and her sister Stacey. [facility] at [facility]. To use a walker. Caregiver is Yara. No history of smoking or alcohol. Physical examination: VITAL SIGNS: 102.3, 84, 18, 112 x 64, 96% room air GENERAL: [BMI 33.1, reclining bed awake tired. EYES: Pupils equal. Conjunctiva curtis l. HEENT: External appearance of nose and ears normal, oral cavity grossly normal. NECK: JVD not raised; masses not palpable. HEART: First and second heart sounds are normal; no edema. LUNGS: Respiratory rate normal; clear to auscultation. ABDOMEN: Soft, nontender, liver spleen not palpable, no masses palpable. PSYCH: Able to answer simple questions a bit tired l. MUSCULOSKELETAL:No Clubbing/cyanosis;muscles-grossly intact. OA NEUROLOGICAL: Cranial nerves grossly intact; no facial asymmetry, power and sensation grossly intact. LYMPHATICS: No lymph nodes palpable in the axilla and neck INVESTIGATIONS, reviewed in the clinical context: March 05: White count 7.1 hemoglobin 11.4 platelets 84 sodium 133 potassium 5 BUN 41 creatinine 1.80 glucose 226 UA positive for blood, leukoesterase, WBC EKG tracing personally reviewed by me-normal sinus rhythm. NonspecificST segment changes. Assessment plan: -Acute metabolic encephalopathy/delirium from underlying UTI -Acute UTI with cystitis causing above IV ceftriaxone. 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 baseline -Full code, patient's caregiver Yara confirmed the same -Medical power of privacy attorney legal guardian is patient's mother Madison Rodriguez and Sister Stacey Past Medical History Past Medical History: Diabetes Mellitus, Hyperlipidemia, Hypertension Additional Past Medical History / Comment(s): kyphosis History of Any Multi-Drug Resistant Organisms: None Reported Past Surgical History: No Surgical Hx Reported Additional Past Surgical History / Comment(s): eye surgery Past Anesthesia/Blood Transfusion Reactions: No Reported Reaction Past Psychological History: Anxiety, Depression Smoking Status: Never smoker Past Alcohol Use History: None Reported Past Drug Use History: None Reported - Past Family History Mother Family Medical History: No Reported History Father Family Medical History: Congestive Heart Failure (CHF), Coronary Artery Disease (CAD) Medications and Allergies Home Medications Medication Instructions Recorded Confirmed Type FLUoxetine HCL [PROzac] 10 mg PO HS@192906/27/20 03/05/24 History carvediloL [Coreg] 3.125 mg PO BID@0630,192906/27/20 03/05/24 History Atorvastatin [Lipitor] 20 mg PO HS@192909/08/22 03/05/24 History FLUoxetine HCL [PROzac] 20 mg PO HS@192909/08/22 03/05/24 History Docusate [Colace] 100 mg PO DAILY@30 08/19/23 03/05/24 History polyethylene glycoL 3350 [Miralax] 17 gm PO DAILY@0630 PRN 08/19/23 03/05/24 History LORazepam [Ativan] 0.5 mg PO DAILY PRN #3 tab 08/24/23 03/05/24 Rx Aspirin 81 mg PO DAILY@1830 03/05/24 03/05/24 History Cholecalciferol [Vitamin D3 (25 25 mcg PO DAILY@0630 03/05/24 03/05/24 History Mcg = 1000 Iu)] Omeprazole [PriLOSEC] 20 mg PO BID@0630,192903/05/24 03/05/24 History metFORMIN HCL ER [Glucophage XR] 1,000 mg PO HS@192903/05/24 03/05/24 History Allergies Allergy/AdvReac Type Severity Reaction Status Date / Time No Known Allergies Allergy Verified 03/05/24 11:28 Physical Exam Vitals: Vital Signs Temp Pulse Resp BP Pulse Ox 03/05/24 20:20 100.9 F H 84 18 112/64 96 03/05/24 19:34 102.3 F H 03/05/24 19:25 91 18 111/88 96 03/05/24 17:27 82 95/79 03/05/24 14:21 92 20 112/62 100 03/05/24 10:35 86 21 114/88 96 03/05/24 09:44 79 16 97/54 98 03/05/24 08:44 78 16 101/54 97 03/05/24 08:28 98.9 F 84 16 86/38 97 Intake and Output 03/05/24 03/05/24 03/05/24 06:59 14:59 22:59 Output Total 300 Balance -300 Output: Urine 300 Straight 300 Other: Weight 79.379 kg Results CBC & Chem 7: 03/05/24 09:10 03/05/24 09:10 Labs: Abnormal Lab Results - Last 24 Hours (Table) 03/05/24 03/05/24 03/05/24 Range/Units 09:10 09:10 09:10 RBC 3.66 L (3.80-5.40) m/uL Plt Count 84 L (150-450) k/uL Lymphocytes # 0.4 L (1.0-4.8) k/uL Sodium 133 L (137-145) mmol/L BUN 41 H (7-17) mg/dL Creatinine 1.80 H (0.52-1.04) mg/dL Glucose 206 H (74-99) mg/dL Total Protein 6.1 L (6.3-8.2) g/dL Urine Appearance Cloudy H (Clear) Urine Protein 1+ H (Negative) Urine Blood Large H (Negative) Ur Leukocyte Esterase Large H (Negative) Urine RBC 18 H (0-5) /hpf Urine WBC 87 H (0-5) /hpf Urine WBC Clumps Many H (None) /hpf Urine Bacteria Few H (None) /hpf Urine Mucus Occasional H (None) /hpf
[2024-03-06] MEDS: DOCUSATE 100 MG CAP PO SCH (06:16)
[2024-03-06] MEDS ORDERED: polyethylene glycoL 3350 17 GM POWD.PACK PO PRN (06:30)
--- NOTE | 2024-03-06 08:15 | XR ---
EXAMINATION TYPE: XR lumbar spine 2 or 3V DATE OF EXAM: 03/06/2024 COMPARISON: None HISTORY: Left side pain TECHNIQUE: 3 view lumbar spine FINDINGS: Patient is somewhat rotated towards the left. There. 5 lumbar type vertebral bodies. Visual ized pedicles appear intact. Posterior disc space narrowing may be present L2-3 and L4-5. The body he ights are preserved. IMPRESSION: 1. Scoliosis and some rotation of the lumbar spine. Findings can be related to muscle contraction. [facility], , 03/06/2024 8:13 AM
--- NOTE | 2024-03-06 08:18 | XR ---
EXAMINATION TYPE: XR Hip Bilateral Complete DATE OF EXAM: 03/06/2024 COMPARISON: 08/19/2023 HISTORY: Contraction left-sided TECHNIQUE: Bilateral hips 2 views each. FINDINGS: Femoral heads articulate with the acetabulum. Symphysis pubis is normal. Hip joint spaces a re preserved. No acute fractures evident. IMPRESSION: 1. No acute osseous abnormality bilateral hips [facility], , 03/06/2024 8:16 AM
[2024-03-06] MEDS: PANTOPRAZOLE 40 MG TABLET PO SCH (09:45)
--- NOTE | 2024-03-06 12:10 | CT ---
EXAMINATION TYPE: CT brain wo con CT DLP: 2655.5 mGycm, Automated exposure control for dose reduction was used. DATE OF EXAM: 03/06/2024 11:55 AM COMPARISON: Prior CT Brain from 02/08/2024 . CLINICAL INDICATION:Female, 63 years old with history of poss left side weakness, ams TECHNIQUE: Brain: Multiple axial CT images of the brain were obtained without IV contrast. . Coronal and sagitta l reformats reviewed. FINDINGS: Brain: Extra-axial spaces: No abnormal extra-axial fluid collections. Ventricular system: Within normal limits. Incidental nara cisterna magna. Cerebral parenchyma: No acute intraparenchymal hemorrhage or mass effect. The portillo-white junction is well differentiated. Scattered hypoattenuating areas are seen within the white matter. Cerebellum: Unremarkable. Mass effect: No evidence of midline shift. Intracranial vasculature: Atherosclerotic calcifications of the intracranial vessels. Soft tissues: Normal. Calvarium/osseous structures: No depressed skull fracture. Incomplete fusion posterior arch of C1. Paranasal sinuses and mastoid air cells: Mild to moderate mucosal thickening of the bilateral maxilla ry sinuses. Hypoplastic appearance of the right frontal sinus. Hypoplastic appearance of both mastoid air cells with right greater than left. Visualized orbits: Orbital contents are intact. IMPRESSION: 1. No acute intracranial process. 2. Nonspecific white matter changes, likely secondary to chronic small vessel ischemic disease. [facility], , 03/06/2024 12:08 PM
--- NOTE | 2024-03-06 13:22 | US ---
EXAMINATION TYPE: US carotid duplex BILAT DATE OF EXAM: 03/06/2024 COMPARISON: NONE CLINICAL INDICATION: Female, 63 years old with history of l sided weakness; Unable to stand. Poor hi storian. Suboptimal exam due to pulsatility of Carotid and patient unable to turn neck TECHNIQUE: Carotid duplex ultrasound examination. Indirect Doppler criteria was utilized. 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 Plaque in bilateral bulbs. Plaque seen in distal left CC A. IMPRESSION: 1. Atheromatous plaquing without significant flow-limiting stenosis based on velocities. Criteria for Assigning % of Stenosis / Diameter reduction (Estimation based on the indirect measurements of the internal carotid artery velocities (ICA PSV). 1. Normal (no stenosis)=ICA PSV < 125 cm/s: ratio < 2.0: ICA EDV<40 cm/s. 2. Less than 50% stenosis=ICA PSV < 125 cm/s: ratio < 2.0: ICA EDV<40 cm/s. 3. 50 to 69% stenosis=ICA PSV of 125 to 230 cm/s: ration 2.0 ? 4.0: ICA EDV 40-100 cm/s. 4. Greater than 70% stenosis to near occlusion= ICA PSV > 230 cm/s: ratio > 4.0: ICA EDV > 100 cm/s. 5. Near occlusion= ICA PSV velocities may be low or undetectable: variable ratio and ICA EDV. 6. Total occlusion=unable to detect flow. [facility], , 03/06/2024 1:19 PM
[2024-03-06] MEDS: CLOPIDOGREL 75 MG TAB PO STA (13:23)
--- NOTE | 2024-03-06 20:27 | XR ---
EXAMINATION TYPE: XR knee complete LT DATE OF EXAM: 03/06/2024 8:17 PM CLINICAL INDICATION:Female, 63 years old with history of left knee pain; [facility] COMPARISON: None. TECHNIQUE: The Left knee(s) was examined in Frontal, lateral and oblique projections. FINDINGS: Obliquely oriented fracture seen extending across the proximal fibular diaphysis with minimal displac ement identified. The tibia and femur are intact. No evidence of dislocation is identified. Mild to moderate patellofem oral osteoarthritic change. IMPRESSION: 1. Minimally displaced proximal fibular diaphyseal fracture. 2. 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 [facility], , 03/06/2024 8:24 PM
--- NOTE | 2024-03-06 20:41 | P.PN ---
Progress Note - Text Progress Note Date: 03/06/24 Chief Complaint: Increased weakness This is a pleasant 63-year-old patient I saw in the ER this afternoon. Patient follows with Judy Mo from Dr. Oropeza's office.. Chronic stable medical condition include diabetes, hyperlipidemia, hypertension,. 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 Patient is a resident of [facility]. Patient's guardian is aware mother Madison Rodriguez and her Sister Stacey. This morning when patient woke up she found it difficult to wake up. [place]couch really weak. Not able to get up and get about. Rather lethargic. Tired. No obvious fever and chills reported. Patient is found to have some altered mentation this morning. Patient is found to have infected urine in the ER started on ceftriaxone. Patient did have some breakfast in the ER. March 06: Patient was seen this morning. Son-in-law at the bedside. Noticed some possible weakness on the left side. Tried to sit the patient at the bed.'s some poor balance. I ordered stat CT scan of the brain that came back negative. Carotid Doppler was unremarkable. Patient also Spiked a fever 102 last evening. Patient is perspiring this morning. Still felt to have infection as the primary cause. Patient continued on ceftriaxone. Patient already on aspirin. Plavix was added. Patient already on Lipitor. PT OT is on the case. Will be [address] scan in the morning. Given the complexity and severity of patient's condition expect the patient to be in the hospital at least for 2 overnights. Active Medications Acetaminophen (Acetaminophen Tab 325 Mg Tab) 650 mg PO Q6HR PRN PRN Reason: Mild Pain or Fever > 100.5 Last Admin: 03/06/24 18:34 Dose: 650 mg Alprazolam (Alprazolam 0.25 Mg Tab) 0.25 mg PO Q6HR PRN PRN Reason: Anxiety Aspirin (Aspirin 81 Mg) 81 mg PO DAILY@1830 [facility] Last Admin: 03/06/24 18:32 Dose: 81 mg Atorvastatin Calcium (Atorvastatin 20 Mg Tab) 20 mg PO HS@1930 [facility] Last Admin: 03/05/24 19:41 Dose: 20 mg Calcium Carbonate/Glycine (Calcium Carbonate 500 Mg Chewable) 1,000 mg PO Q4HR PRN PRN Reason: Dyspepsia Carvedilol (Carvedilol 3.125 Mg Tab) 3.125 mg PO BID@30,1929 [facility] Last Admin: 03/06/24 09:46 Dose: Not Given Clopidogrel Bisulfate (Clopidogrel 75 Mg Tab) 75 mg PO DAILY [facility] Docusate Sodium (Docusate 100 Mg Cap) 100 mg PO DAILY@0630 [facility] Last Admin: 03/06/24 06:16 Dose: 100 mg Enoxaparin Sodium (Enoxaparin 30 Mg/0.3 Ml Syringe) 30 mg SQ DAILY [facility] Last Admin: 03/06/24 09:46 Dose: 30 mg Fluoxetine HCl (Fluoxetine Hcl 10 Mg Cap) 10 mg PO HS@1929 [facility] Last Admin: 03/05/24 19:42 Dose: 10 mg Fluoxetine HCl (Fluoxetine Hcl 20 Mg Cap) 20 mg PO HS@193 [facility] Last Admin: 03/05/24 19:41 Dose: 20 mg Ceftriaxone Sodium 2 gm/ (Sodium Chloride) 50 mls @ 100 mls/hr IVPB Q24HR [facility]; Protocol Last Admin: 03/06/24 09:46 Dose: 100 mls/hr Lactulose (Lactulose 20 Gm/30 Ml Cup) 20 gm PO DAILY PRN PRN Reason: Constipation Lorazepam (Lorazepam 0.5 Mg Tab) 0.5 mg PO DAILY PRN PRN Reason: Anxiety Melatonin (Melatonin 3 Mg Tablet) 3 mg PO HS PRN PRN Reason: Insomnia Last Admin: 03/05/24 19:41 Dose: 3 mg Naloxone HCl (Naloxone 0.4 Mg/Ml 1 Ml Vial) 0.2 mg IV Q2M PRN PRN Reason: Opioid Reversal Ondansetron HCl (Ondansetron 4 Mg/2 Ml Vial) 4 mg IVP Q8HR PRN PRN Reason: Nausea And Vomiting Last Admin: 03/05/24 18:00 Dose: 4 mg Pantoprazole Sodium (Pantoprazole 40 Mg Tablet) 40 mg PO -BRKFST [facility] Last Admin: 03/06/24 09:45 Dose: 40 mg Polyethylene Glycol (Polyethylene Glycol 3350 17 Gm Powd.Pack) 17 gm PO DAILY@0630 PRN PRN Reason: Constipation Social history: Patient's guardian is her mother Madison Rodriguez and her sister Stacey. Lives at [facility] long[facility]term. To use a walker. Caregiver is Yara. No history of smoking or alcohol. Physical examination: VITAL SIGNS: 102.3 Tmax last night, 97.7 this morning, 86, 16, 106 x 65, 96% room air GENERAL: [BMI 33.1, reclining bed awake tired. EYES: Pupils equal. Conjunctiva curtis l. HEENT: External appearance of nose and ears normal, oral cavity grossly normal. NECK: JVD not raised; masses not palpable. HEART: First and second heart sounds are normal; no edema. LUNGS: Respiratory rate normal; clear to auscultation. ABDOMEN: Soft, nontender, liver spleen not palpable, no masses palpable. PSYCH: Able to answer simple questions a bit tired l. MUSCULOSKELETAL:No Clubbing/cyanosis;muscles-grossly intact. OA NEUROLOGICAL: Cranial nerves grossly intact; no facial asymmetry, questionable some weakness on the left side. INVESTIGATIONS, reviewed in the clinical context: CT scan of brain without contrast [March 06] chronic changes Carotid Doppler: No significant stenosis March 05: White count 7.1 hemoglobin 11.4 platelets 84 sodium 133 potassium 5 BUN 41 creatinine 1.80 glucose 226 UA positive for blood, leukoesterase, WBC EKG tracing personally reviewed by me-normal sinus rhythm. NonspecificST segment changes. Assessment plan: -Acute metabolic encephalopathy/delirium from underlying UTI -Sepsis from acute UTI with cystitis Spiked a fever 102.3 yesterday evening. Blood cultures drawn -Questionable left-sided weakness today.: To rule out stroke: New diagnosis Stat CT scan brain negative. Carotid Doppler unremarkable. Patient already on aspirin. Was given a dose of Plavix. But patient's platelets are running on the low-r 84. Will keep patient on aspirin. Will repeat CT scan of the brain in the morning -Acute UTI with cystitis causing above IV ceftriaxone. 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 Past Medical History Past Medical History: Diabetes Mellitus, Hyperlipidemia, Hypertension Additional Past Medical History / Comment(s): kyphosis History of Any Multi-Drug Resistant Organisms: None Reported Past Surgical History: No Surgical Hx Reported Additional Past Surgical History / Comment(s): eye surgery Past Anesthesia/Blood Transfusion Reactions: No Reported Reaction Past Psychological History: Anxiety, Depression Smoking Status: Never smoker Past Alcohol Use History: None Reported Past Drug Use History: None Reported
--- NOTE | 2024-03-06 22:25 | XR ---
EXAMINATION TYPE: XR tibia fibula LT DATE OF EXAM: 03/06/2024 CLINICAL HISTORY: Fibular fracture. TECHNIQUE: Two views of the left leg are obtained. COMPARISON: Left knee x-ray earlier today. FINDINGS: There is no additional acute fracture or dislocation seen in the left tibia or fibula. Oss eous structures are demineralized which is noted to lower radiographic sensitivity. Comminuted nondis placed fracture proximal fibular diaphysis is redemonstrated. Overlying soft tissue is unremarkable. IMPRESSION: There is no additional acute fracture or dislocation seen in the left tibia or fibula. [facility], , 03/06/2024 10:23 PM
[2024-03-07 03:34] LABS: Basophils % (A) 0 %; Eosinophils # (A) 0.1 k/uL (0-0.7); Eosinophils % (A) 3 %; HCT 30.7 % (34.0-46.0); Lymphocytes # (A) 0.7 k/uL (1.0-4.8); Lymphocytes % (A) 18 %; MCH 30.6 pg (25.0-35.0); MCHC 32.2 g/dL (31.0-37.0); MCV 95.2 fL (80.0-100.0); Mean Platelet Volume 8.7; Monocytes # (A) 0.4 k/uL (0-1.0); Monocytes % (A) 11 %; Neutrophils # (A) 2.5 k/uL (1.3-7.7); Neutrophils % (A) 65 %; RBC 3.22 m/uL (3.80-5.40); RDW 13.2 % (11.5-15.5); WBC 3.9 k/uL (3.8-10.6)
[2024-03-07 03:48] LABS: HGB 9.9 gm/dL (11.4-16.0)
[2024-03-07 03:55] LABS: Platelet Count 76 k/uL (150-450)
[2024-03-07 04:24] LABS: African American GFR (CKD) 41 (>60 ml/min/1.73 sqM); Anion Gap 6 mmol/L; Blood Urea Nitrogen 32 mg/dL (7-17); Calcium 9.1 mg/dL (8.4-10.2); Carbon Dioxide 25 mmol/L (22-30); Chloride 106 mmol/L (98-107); Glucose 148 mg/dL (74-99); Non-African American GFR(CKD) 36 (>60 ml/min/1.73 sqM); Potassium 4.3 mmol/L (3.5-5.1); Sodium 137 mmol/L (137-145)
[2024-03-07] MEDS: metFORMIN 500 MG TAB PO SCH (09:00)
[2024-03-07] MEDS: CLOPIDOGREL 75 MG TAB PO SCH (09:00)
--- NOTE | 2024-03-07 10:55 | P.CNOR ---
History of Present Illness - [facility] Consult date: 03/06/24 Consult reason: fracture History of present illness: Patient is seen and examined at bedside. She is a pleasant 63-year-old female who follows with Dr. Oropeza office. We are asked to see the patient in regards to a fracture at the left proximal fibula. Upon notification of the consult we ordered GERD further x-rays of her tibia and fibula at the ankle to evaluate for further injury of which the report was negative. The patient has a chronic history of mental impairment since due to chromosomal defect. She has a number of chronic stable medical conditions including diabetes hyperlipidemia and hypertension. There is no regular caregiver at bedside today upon our visit. Patient normally resides at [facility]. Most of the history is taken per her chart. Apparently the patient woke up 2 days ago feeling weak and unable to get up and get around. Normally patient ambulates to some degree at home. It is difficult to obtain any history from the patient and she is not reporting any pain currently. The patient was found to have some mental alteration over the past 2 days and a u rinary tract infection. Over the past couple of days patient has had limited mobility. Per the nursing staff she basically stays in bed and is not willing to eat up and move around. She is pleasant and does not appear to be in gross pain but seems to favor her left side. Review of Systems As stated. The patient is not reporting pain but she has limited historian due to mental impairment chronically. Past Medical History Past Medical History: Diabetes Mellitus, Hyperlipidemia, Hypertension, Renal Disease Additional Past Medical History / Comment(s): Significant mental impairment due to chromosomal abnormality since . Kyphosis History of Any Multi-Drug Resistant Organisms: None Reported Past Surgical History: No Surgical Hx Reported Additional Past Surgical History / Comment(s): eye surgery, meniscus repair Past Anesthesia/Blood Transfusion Reactions: No Reported Reaction Past Psychological History: Anxiety, Depression Additional Psychological History / Comment(s): mentally impaired since due to chromosomal defect Smoking Status: Never smoker Past Alcohol Use History: None Reported Past Drug Use History: None Reported - Past Family History Mother Family Medical History: No Reported History Father Family Medical History: Congestive Heart Failure (CHF), Coronary Artery Disease (CAD) Medications and Allergies Home Medications Medication Instructions Recorded Confirmed Type FLUoxetine HCL [PROzac] 10 mg PO HS@1930 06/27/20 03/05/24 History carvediloL [Coreg] 3.125 mg PO BID@629,192906/27/20 03/05/24 History Atorvastatin [Lipitor] 20 mg PO HS@192909/08/22 03/05/24 History FLUoxetine HCL [PROzac] 20 mg PO HS@192909/08/22 03/05/24 History Docusate [Colace] 100 mg PO DAILY@62908/19/23 03/05/24 History polyethylene glycoL 3350 [Miralax] 17 gm PO DAILY@629 PRN 08/19/23 03/05/24 History LORazepam [Ativan] 0.5 mg PO DAILY PRN #3 tab 08/24/23 03/05/24 Rx Aspirin 81 mg PO DAILY@182903/05/24 03/05/24 History Cholecalciferol [Vitamin D3 (25 25 mcg PO DAILY@62903/05/24 03/05/24 History Mcg = 1000 Iu)] Omeprazole [PriLOSEC] 20 mg PO BID@629,192903/05/24 03/05/24 History metFORMIN HCL ER [Glucophage XR] 1,000 mg PO HS@192903/05/24 03/05/24 History Allergies Allergy/AdvReac Type Severity Reaction Status Date / Time No Known Allergies Allergy Verified 03/05/24 11:28 Physical Examination Osteopathic Statement: *. No significant issues noted on an osteopathic structural exam other than those noted in the History and Physical/Consult. - Knee left Appearance: other (The patient is in bed receiving a bath. She keeps her knees flexed but is able to bend her knee slightly as well as mobilize her ankle feet and toes independently. She has tenderness to palpation at her proximal fibula. There is no open wounds or ecchymosis around her knee. She is nontender at h) Tenderness with palpation: lateral (Some tenderness to palpation proximal fibula. There is no ecchymosis or skin breakdown. There is no tenderness at her ankle. There is no tenderness at her hips. She is able to mobilize her hips without pain) Results - Labs Labs: Abnormal Lab Results - Last 24 Hours (Table) 03/07/24 03/07/24 Range/Units 03:18 03:18 RBC 3.22 L (3.80-5.40) m/uL Hgb 9.9 L D (11.4-16.0) gm/dL Hct 30.7 L (34.0-46.0) % Plt Count 76 L (150-450) k/uL Lymphocytes # 0.7 L (1.0-4.8) k/uL BUN 32 H (7-17) mg/dL Creatinine 1.52 H (0.52-1.04) mg/dL Glucose 148 H (74-99) mg/dL H & H 03/05/24 03/07/24 Range/Units 09:10 03:18 Hgb 11.4 9.9 L D (11.4-16.0) gm/dL Hct 34.8 30.7 L (34.0-46.0) % Coagulation 03/05/24 Range/Units 09:10 INR 1.0 (<1.2) Result Diagrams: 03/07/24 03:18 03/07/24 03:18 - Diagnostic results Hip x-ray: report reviewed, image reviewed (There is some bilateral osteoarthritis moderate bilaterally without evidence of fracture) Knee x-ray: report reviewed, image reviewed (Knee x-rays show a minimally displaced proximal fibula fracture. Tibia and fibula x-rays do not show evidence of ankle fracture.) Lumbar AP/lateral x-ray: report reviewed, image reviewed (Lumbar x-rays show no evidence of fracture. 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 She is not having any ankle pain and her x-rays of her ankle appear to be without fracture ruling out Maisonneuve type fracture. Her fibula fracture should not require any specific treatment and does not require bracing. It is okay for her to ambulate and nayla ght-bear as tolerated on her left lower extremity. The fracture should heal expectantly. It is difficult to determine the etiology of the injury as there is no reports of fall or trauma. Fractures of this type would typically result from a direct blow at the lateral proximal fibula but she is not having any skin changes or ecchymosis currently. It could be that the fracture is subacute. The fracture should not affect her weightbearing but certainly can cause some soreness around her knee. It is okay for her to weight-bear as tolerated and to mobilize her left knee as tolerated. If she is having significant pain she could use a hinged knee brace but I think this would be difficult given her positioning and mental status. For now I think we will leave her out of her brace and allow the fracture to heal expectantly. She should work with physical therapy to increase her mobility weightbearing as tolerated on left lower extremity. Overall it is difficult to fully ascertain why she may be favoring her left side in total. Certainly her left knee is giving her some symptoms as mentioned above and they will continue to do further workup and assessment medically.
--- NOTE | 2024-03-07 13:40 | CA ---
Transthoracic Echo Report Name: Park Rodriguez Age: 63 Gender: F : 1960 Exam Date: 03/06/2024 13:23 Exam Location: [facility] Ht (in): 63 Wt (lb): 175 Ordering Physician: Armaan Montiel MD Attending/Referring Phys: [place] Kenzie Hoffman RDCS Procedure CPT: Indications: r o thrombus Cardiac Hx: Technical Quality: Fair Contrast 1: Definity Total Dose (mL): 2 Contrast 2: Total Dose (mL): MEASUREMENTS (Male / Female) Normal Values 2D ECHO LV Diastolic Diameter PLAX 5.2 cm 4.2 - 5.9 / 3.9 - 5.3 cm LV Systolic Diameter PLAX 4.5 cm IVS Diastolic Thickness 1.0 cm 0.6 - 1.0 / 0.6 - 0.9 cm LVPW Diastolic Thickness 1.0 cm 0.6 - 1.0 / 0.6 - 0.9 cm LV Relative Wall Thickness 0.4 RV Internal Dim ED PLAX 2.7 cm LA Systolic Diameter LX 3.9 cm 3.0 - 4.0 / 2.7 - 3.8 cm M-MODE Aortic Root Diameter MM 2.9 cm LA Systolic Diameter MM 3.5 cm LA Ao Ratio MM 1.2 AV Cusp Separation MM 1.8 cm DOPPLER MV Area PHT 3.3 cm??? Mitral E Point Velocity 89.8 cm/s Mitral A Point Velocity 102.1 cm/s Mitral E to A Ratio 0.9 MV Deceleration Time 228.0 ms TR Peak Velocity 325.3 cm/s TR Peak Gradient 42.3 mmHg Right Ventricular Systolic Press 46.8 mmHg FINDINGS Left Ventricle Left ventricular ejection fraction is estimated at 20-25 %. Mildly increased septal wall thickness. Severely reduced global left ventricular systolic function. Left ventricular cavity size normal. Right Ventricle Mild right ventricular dilatation. Moderate pulmonary hypertension. Right Atrium Mild right atrial dilatation. Left Atrium Mildly increased left atrial diameter. Mitral Valve Structurally normal mitral valve. Trace mitral regurgitation. Mitral annular calcification. Aortic Valve Trileaflet aortic valve. Trace aortic regurgitation. No aortic stenosis. Tricuspid Valve Structurally normal tricuspid valve. Mild tricuspid regurgitation. No tricuspid stenosis. Pulmonic Valve Structurally normal pulmonic valve. Trace pulmonic regurgitation. No pulmonic stenosis. Pericardium No pericardial or pleural effusion. Aorta Normal size aortic root and proximal ascending aorta. CONCLUSIONS Diagnosis: Discussed with Dr. Montiel. Patient had an episode of focal weakness, possible embolic CVA. 2D echo ordered to rule out intracardiac mass or thrombus Dilated left ventricle with severe LV dysfunction ejection fraction less than 25% RV enlargement No intracardiac mass or thrombus Previewed by: Dr. Major Alejandro MD (Electronically Signed) Final Date: 07 March 2024 13:39
--- NOTE | 2024-03-07 14:23 | CT ---
EXAMINATION TYPE: CT brain wo con DATE OF EXAM: 03/07/2024 COMPARISON: 03/06/2024 HISTORY: 63-year-old female f/u left sided weakness TECHNIQUE: Examination was done in axial plane without intravenous contrast. Coronal and sagittal r econstructions performed. CT DLP: 2698 mGycm Automated exposure control for dose reduction was used. FINDINGS: There is no evidence of acute intracranial hemorrhage, acute ischemic changes, mass, mass-effect, or extra-axial fluid collection. There is no effacement of cerebral sulci or basal subarachnoid cister ns. There is no midline shift. Smith-white matter distinction is preserved. There is mild volume loss centrally and secondary prominence to the ventricular system. Stern ratio c alculated at 0.34. Mild patchy periventricular white matter hypodensities. Megacisterna magna. Mild mucosal thickening throughout the paranasal sinuses. 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 Orbits and globes appear intact. IMPRESSION: 1. Mild ventriculomegaly may be age related central cerebral atrophy. Correlate to exclude a componen t of NPH. 2. Mild burden of chronic small vessel ischemic disease. 3. No acute intracranial abnormality seen. [facility], , 03/07/2024 2:20 PM
--- NOTE | 2024-03-07 18:34 | P.PN ---
Progress Note - Text Progress Note Date: 03/07/24 Chief Complaint: Increased weakness This is a pleasant 63-year-old patient I saw in the ER this afternoon. Patient follows with Judy Mo from Dr. Oropeza's office.. Chronic stable medical condition include diabetes, hyperlipidemia, hypertension,. 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 Patient is a resident of [facility]. Patient's guardian is aware mother Madison Rodriguez and her Sister Stacey. This morning when patient woke up she found it difficult to wake up. [place] really weak. Not able to get up and get about. Rather lethargic. Tired. No obvious fever and chills reported. Patient is found to have some altered mentation this morning. Patient is found to have infected urine in the ER started on ceftriaxone. Patient did have some breakfast in the ER. March 06: Patient was seen this morning. Son-in-law at the bedside. Noticed some possible weakness on the left side. Tried to sit the patient at the bed.'s some poor balance. I ordered stat CT scan of the brain that came back negative. Carotid Doppler was unremarkable. Patient also Spiked a fever 102 last evening. Patient is perspiring this morning. Still felt to have infection as the primary cause. Patient continued on ceftriaxone. Patient already on aspirin. Plavix was added. Patient already on Lipitor. PT OT is on the case. Will be [address] scan in the morning. Given the complexity and severity of patient's condition expect the patient to be in the hospital at least for 2 overnights. March 07: Patient has a comminuted nondisplaced fracture proximal fibular diaphysis. Seen by Dr. Moore from orthopedics. Conservative management. This was discussed with patient's sister Stacey and [id number]. Seen by physical therapy. Patient remains on max assist. Subacute rehab has been recommended. At baseline patient uses a walker. 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 Plan for discharge tomorrow. Oral intake good. Repeat CT scan of the brain today unremarkable. For acute stroke. Active Medications Acetaminophen (Acetaminophen Tab 325 Mg Tab) 650 mg PO Q6HR PRN PRN Reason: Mild Pain or Fever > 100.5 Last Admin: 03/07/24 09:08 Dose: 650 mg Alprazolam (Alprazolam 0.25 Mg Tab) 0.25 mg PO Q6HR PRN PRN Reason: Anxiety Aspirin (Aspirin 81 Mg) 81 mg PO DAILY@183 [facility] Last Admin: 03/07/24 18:03 Dose: 81 mg Atorvastatin Calcium (Atorvastatin 20 Mg Tab) 20 mg PO HS@1929 [facility] Last Admin: 03/06/24 20:48 Dose: 20 mg Calcium Carbonate/Glycine (Calcium Carbonate 500 Mg Chewable) 1,000 mg PO Q4HR PRN PRN Reason: Dyspepsia Carvedilol (Carvedilol 3.125 Mg Tab) 3.125 mg PO BID@0630,1929 [facility] Last Admin: 03/07/24 06:06 Dose: 3.125 mg Clopidogrel Bisulfate (Clopidogrel 75 Mg Tab) 75 mg PO DAILY [facility] Last Admin: 03/07/24 09:00 Dose: 75 mg Docusate Sodium (Docusate 100 Mg Cap) 100 mg PO DAILY@06 [facility] Last Admin: 03/07/24 06:06 Dose: 100 mg Enoxaparin Sodium (Enoxaparin 30 Mg/0.3 Ml Syringe) 30 mg SQ DAILY [facility] Last Admin: 03/07/24 09:00 Dose: 30 mg Fluoxetine HCl (Fluoxetine Hcl 10 Mg Cap) 10 mg PO HS@1929 [facility] Last Admin: 03/06/24 20:48 Dose: 10 mg Fluoxetine HCl (Fluoxetine Hcl 20 Mg Cap) 20 mg PO HS@1929 [facility] Last Admin: 03/06/24 20:48 Dose: 20 mg Ceftriaxone Sodium 2 gm/ (Sodium Chloride) 50 mls @ 100 mls/hr IVPB Q24HR [facility]; Protocol Last Admin: 03/07/24 11:49 Dose: 100 mls/hr Lactulose (Lactulose 20 Gm/30 Ml Cup) 20 gm PO DAILY PRN PRN Reason: Constipation Lorazepam (Lorazepam 0.5 Mg Tab) 0.5 mg PO DAILY PRN PRN Reason: Anxiety Melatonin (Melatonin 3 Mg Tablet) 3 mg PO HS PRN PRN Reason: Insomnia Last Admin: 03/05/24 19:41 Dose: 3 mg Metformin HCl (Metformin 500 Mg Tab) 500 mg PO BID-W/MEALS [facility] Last Admin: 03/07/24 18:03 Dose: 500 mg Naloxone HCl (Naloxone 0.4 Mg/Ml 1 Ml Vial) 0.2 mg IV Q2M PRN PRN Reason: Opioid Reversal Ondansetron HCl (Ondansetron 4 Mg/2 Ml Vial) 4 mg IVP Q8HR PRN PRN Reason: Nausea And Vomiting Last Admin: 03/05/24 18:00 Dose: 4 mg Pantoprazole Sodium (Pantoprazole 40 Mg Tablet) 40 mg PO AC-BRKFST TONY Last Admin: 03/07/24 09:05 Dose: 40 mg Polyethylene Glycol (Polyethylene Glycol 3350 17 Gm Powd.Pack) 17 gm PO DAILY@0630 PRN PRN Reason: Constipation Social history: Patient's guardian is her mother Madison Rodriguez and her sister Stacey. Lives at [facility] assisted. To use a walker. Caregiver is Yara. No history of smoking or alcohol. Physical examination: VITAL SIGNS: 98.1, 71, 18, 93 x 44, 98% room GENERAL: [BMI 33.1, r resting in bed EYES: Pupils equal. Conjunctiva curtis l. HEENT: External appearance of nose and ears normal, oral cavity grossly normal. NECK: JVD not raised; masses not palpable. HEART: First and second heart sounds are normal; no edema. LUNGS: Respiratory rate normal; clear to auscultation. ABDOMEN: Soft, nontender, liver spleen not palpable, no masses palpable. PSYCH: Able to answer simple questions a bit tired l. MUSCULOSKELETAL:No Clubbing/cyanosis;muscles-grossly intact. OA NEUROLOGICAL: Cranial nerves grossly intact; no facial asymmetry, questionable some weakness on the left side. INVESTIGATIONS, reviewed in the clinical context: CT scan of the brain without contrast-repeat [March 07: No acute stroke CT scan of brain without contrast [March 06] chronic changes Carotid Doppler: No significant stenosis March 05: White count 7.1 hemoglobin 11.4 platelets 84 sodium 133 potassium 5 BUN 41 creatinine 1.80 glucose 226 UA positive for blood, leukoesterase, WBC EKG tracing personally reviewed by me-normal sinus rhythm. NonspecificST segment changes. Assessment plan: -Acute metabolic encephalopathy/delirium from underlying UTI: Better -Sepsis from acute UTI with cystitis: Better Spiked a fever 102.3 yesterday evening. Blood cultures drawn IV ceftriaxone -Stroke ruled out Stat CT scan brain negative. Repeat CT scan negative. Carotid Doppler unremarkable. Patient already on aspirin. Was given a dose of Plavix. But patient's platelets are running on the low-r 84. Will keep patient on aspirin. -Left leg weakness from fibula fracture. Proximal diaphysis Seen by Dr. Moore from orthopedics. Conservative management. -Acute UTI with cystitis causing above IV ceftriaxone. 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 Probable plan to return to assisted living with outpatient PT OT. Past Medical History Past Medical History: Diabetes Mellitus, Hyperlipidemia, Hypertension Additional Past Medical History / Comment(s): kyphosis History of Any Multi-Drug Resistant Organisms: None Reported Past Surgical History: No Surgical Hx Reported Additional Past Surgical History / Comment(s): eye surgery Past Anesthesia/Blood Transfusion Reactions: No Reported Reaction Past Psychological History: Anxiety, Depression Smoking Status: Never smoker Past Alcohol Use History: None Reported Past Drug Use History: None Reported
[2024-03-08 09:20] VITALS: BP 128/80; PULSE 76; RESP 19; TEMP 98.3
--- NOTE | 2024-03-08 18:13 | P.DS ---
Providers Date of admission: 03/06/24 20:40 Expected date of discharge: 03/08/24 Attending physician: Armaan Montiel Consults: 03/06/24 07:37 Consult Physician Urgent Consulting Provider: [facility] Consult Reason/Comments: patient is favoring left side, contracted Do you want consulting provider notified?: Yes Primary care physician: Wade [facility] Course: Chief Complaint: Increased weakness This is a pleasant 63-year-old patient I saw in the ER this afternoon. Patient follows with Judy Mo from Dr. Oropeza's office.. Chronic stable medical condition include diabetes, hyperlipidemia, hypertension,. 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 Patient is a resident of [facility]. Patient's guardian is aware mother Madison Rodriguez and her Sister Stacey. This morning when patient woke up she found it difficult to wake up. [place] really weak. Not able to get up and get about. Rather lethargic. Tired. No obvious fever and chills reported. Patient is found to have some altered mentation this morning. Patient is found to have infected urine in the ER started on ceftriaxone. Patient did have some breakfast in the ER. March 06: Patient was seen this morning. Son-in-law at the bedside. Noticed some possible weakness on the left side. Tried to sit the patient at the bed.'s some poor balance. I ordered stat CT scan of the brain that came back negative. Carotid Doppler was unremarkable. Patient also Spiked a fever 102 last evening. Patient is perspiring this morning. Still felt to have infection as the primary cause. Patient continued on ceftriaxone. Patient already on aspirin. Plavix was added. Patient already on Lipitor. PT OT is on the case. Will be [address] scan in the morning. Given the complexity and severity of patient's condition expect the patient to be in the hospital at least for 2 overnights. March 07: Patient has a comminuted nondisplaced fracture proximal fibular diaphysis. Seen by Dr. Moore from orthopedics. Conservative management. This was discussed with patient's sister Stacey and [id number]. Seen by physical therapy. Patient remains on max assist. Subacute rehab has been recommended. At baseline patient uses a walker. 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 Plan for discharge tomorrow. Oral intake good. Repeat CT scan of the brain today unremarkable.-Negative for acute stroke. March 08: Comfortable. Will complete 2 more days of antibiotic. Updated discharge medication list, informed nurse Lottie this evening to fax to the assisted living.. I also called patient's Sister Stacey at home and informed her of the change. Social history: Patient's guardian is her mother Madison Rodriguez and her sister Stacey. Lives at [facility]. To use a walker. Caregiver is Yara. No history of smoking or alcohol. Physical examination: VITAL SIGNS: 98.3, 76, 19, 128 x 80, 97% room air GENERAL: [BMI 33.1, r resting in bed EYES: Pupils equal. Conjunctiva curtis l. HEENT: External appearance of nose and ears normal, oral cavity grossly normal. NECK: JVD not raised; masses not palpable. HEART: First and second heart sounds are normal; no edema. LUNGS: Respiratory rate normal; clear to auscultation. ABDOMEN: Soft, nontender, liver spleen not palpable, no masses palpable. PSYCH: Able to answer simple questions a bit tired l. MUSCULOSKELETAL:No Clubbing/cyanosis;muscles-grossly intact. OA. Some decrease movement of the left leg because of local discomfort NEUROLOGICAL: Cranial nerves grossly intact; no facial asymmetry, no weakness of the left side INVESTIGATIONS, reviewed in the clinical context: March 07: White count 3.9 hemoglobin 9.9 platelets 76 sodium 137 potassium 4.3 BUN [address] scan of the brain without contrast-repeat [March 07: No acute stroke CT scan of brain without contrast [March 06] chronic changes Carotid Doppler: No significant stenosis March 05: White count 7.1 hemoglobin 11.4 platelets 84 sodium 133 potassium 5 BUN 41 creatinine 1.80 glucose 226 UA positive for blood, leukoesterase, WBC EKG tracing personally reviewed by me-normal sinus rhythm. NonspecificST segment changes. Assessment plan: -Acute metabolic encephalopathy/delirium from underlying UTI: Better -Sepsis from acute UTI with cystitis: Better Spiked a fever 102.3 yesterday evening. Blood cultures drawn IV ceftriaxone. 2 more days of Ceftin. -Stroke ruled out Stat CT scan brain negative. Repeat CT scan negative. Carotid Doppler unremarkable. Patient already on aspirin. Was given a dose of Plavix. But patient's platelets are running on the low-r 84. Will keep patient on aspirin. -Left leg weakness from fibula fracture. Proximal diaphysis Seen by Dr. Moore from orthopedics. Follow outpatient -Acute UTI with cystitis causing above IV ceftriaxone.. 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 is patient's mother Madison Rodriguez and Sister Stacey Disposition: [facility] Past Medical History Past Medical History: Diabetes Mellitus, Hyperlipidemia, Hypertension Additional Past Medical History / Comment(s): kyphosis History of Any Multi-Drug Resistant Organisms: None Reported Past Surgical History: No Surgical Hx Reported Additional Past Surgical History / Comment(s): eye surgery Past Anesthesia/Blood Transfusion Reactions: No Reported Reaction Past Psychological History: Anxiety, Depression Smoking Status: Never smoker Past Alcohol Use History: None Reported Past Drug Use History: None Reported Plan - Discharge Summary Discharge Rx Participant: No New Discharge Prescriptions: New Acetaminophen Tab [Tylenol] 650 mg PO Q6HR PRN tab PRN Reason: Mild Pain Or Fever > 100.5 Clopidogrel [Plavix] 75 mg PO DAILY tab Continue carvediloL [Coreg] 3.125 mg PO BID@629,1929 FLUoxetine HCL [PROzac] 10 mg PO HS@1929 Cholecalciferol [Vitamin D3 (25 Mcg = 1000 Iu)] 25 mcg PO DAILY@629 FLUoxetine HCL [PROzac] 20 mg PO HS@193 Atorvastatin [Lipitor] 20 mg PO HS@1929 polyethylene glycoL 3350 [Miralax] 17 gm PO DAILY@0630 PRN PRN Reason: Constipation LORazepam [Ativan] 0.5 mg PO DAILY PRN #3 tab PRN Reason: Anxiety metFORMIN HCL ER [Glucophage XR] 1,000 mg PO HS@1929 Aspirin 81 mg PO DAILY@1829 Omeprazole [PriLOSEC] 20 mg PO BID@629,1929 Discontinued Docusate [Colace] 100 mg PO DAILY@0630 Discharge Medication List FLUoxetine HCL [PROzac] 10 mg PO HS@1930 06/27/20 [History] carvediloL [Coreg] 3.125 mg PO BID@629,192906/27/20 [History] Atorvastatin [Lipitor] 20 mg PO HS@192909/08/22 [History] FLUoxetine HCL [PROzac] 20 mg PO HS@192909/08/22 [History] polyethylene glycoL 3350 [Miralax] 17 gm PO DAILY@06 PRN 08/19/23 [History] LORazepam [Ativan] 0.5 mg PO DAILY PRN #3 tab 08/24/23 [Rx] Aspirin 81 mg PO DAILY@182903/05/24 [History] Cholecalciferol [Vitamin D3 (25 Mcg = 1000 Iu)] 25 mcg PO DAILY@62903/05/24 [History] Omeprazole [PriLOSEC] 20 mg PO BID@629,192903/05/24 [History] metFORMIN HCL ER [Glucophage XR] 1,000 mg PO HS@192903/05/24 [History] Acetaminophen Tab [Tylenol] 650 mg PO Q6HR PRN tab 03/08/24 [Rx] Clopidogrel [Plavix] 75 mg PO DAILY tab 03/08/24 [Rx] Follow up Appointment(s)/Referral(s): Wade Oropeza DO [Primary Care Provider] - 1-2 days (The office will call with a follow up appointment.) Jenae Moore DO [Doctor of Osteopathic Medicine] - (To reevaluate left knee proximal fibula fracture. The appointment may be done via telehealth if we are able to obtain repeat x-rays of her left knee at or prior to the time of the appointment at approximately 2 weeks. Telehealth visit scheduled for Monday03/22/24 at or around 2:00pm. ) [facility] [NON-STAFF] - As Needed Activity/Diet/Wound Care/Special Instructions: Okay to weight-bear as tolerated on left lower extremity Pt will need wheelchair when out of bed Discharge Disposition: HOME WITH HOME HEALTH SERVICES
--- NOTE | 2024-03-25 09:31 | CDI ---
Documentation Clarification Form Date: 03/25/2024 08:58:09 AM From: Sara Rodriguez RN CCDS Phone: [phone] Admit Date: 03/06/2024 08:40:00 PM Patient Name: Park Rodriguez Visit Number: [id number] Discharge Date: 03/08/2024 01:01:00 PM ATTENTION: The Clinical Documentation Specialists (CDI) and [facility] Coding Staff appreciate your assistance in clarifying documentation. Please respond to the clarification below the line at the bottom and electronically sign. The CDI & [facility] Coding staff will review the response and follow-up if needed. Please note: Queries are made part of the Legal Health Record. If you have any questions, please contact the author of this message via ITS. Doctor: Armaan Montiel Sepsis is documented 03/06, medicine note which may lack sufficient clinical evidence/support in the medical record. Additional clarification is requested. History/Risk Factors: 63 year old female presents to the ED with caregiver and sister for occasionally vomiting when food gags her. She is also week and unable to get up, so she was brought to the ED. Medical History: DM2, HLD, Kyphosis and HTN. 03/05, ED note. Clinical Indicators: VSS: 03/05 19:34 Temp 102.3F Oral 03/05 20:00 Temp 100.0F Oral, BP 112/65; HR 84, RR 18, SpO2 96% ra LABS, 03/05: Wbc 7.1; Lymphocytes 0.4 03/07: Wbc 3.9; Lymphocytes 0.7 Urine, 03/05: Appearance cloudy, protein 1+, blood large, leukocyte esterase large, Rbc 18, Wbc 87, Wbc clumps many, urine bacteria few Treatment: 03/05 0.9NS 1L IVPB x 1; Rocephin 1,000mg IVP x2; 03/06 03/08 Ceftriaxone IVPB Q24 After work up and study, please clarify which diagnosis is most appropriate? [ ] Sepsis ruled out [ ] Sepsis treated prophylactically [ ] Sepsis is a valid diagnosis as evidence by the following: (Please add rationale): [ ] Other, please specify [ + ] Unable to determine SIRS Criteria: 2 or more of the following may indicate SIRS Temperature < 96.8F (36C) or > 101.0F (38.3C) Heart Rate > 90 bpm Respiratory Rate > 20 breaths/min or PaCO2 < 32 mmHg White Blood Cell Count > 12,000 or < 4,000 cells/mm3 or > 10% bands (Template Last Reviewed: June 2023) MTDD
== END 2024-03-08 13:01 | disposition home health service (06) | DRG 871 ==
LOC: EC 08:26 → 6NMEDSUR 11:47 → 5NMEDONC 03-06 01:14 → OBSVTOIN 03-06 20:40
PROVIDERS: ADMIT Hospitalist; ATTEND Hospitalist
DX: A41.9 Sepsis, unspecified organism (principal); G93.41 Metabolic encephalopathy; F05 Delirium due to known physiological condition; E11.9 Type 2 diabetes mellitus without complications; I10 Essential (primary) hypertension; F32.A Depression, unspecified; S82.832A Other fracture of upper and lower end of left fibula, initial encounter for closed fracture; N30.90 Cystitis, unspecified without hematuria; E78.5 Hyperlipidemia, unspecified; F79 Unspecified intellectual disabilities; K21.9 Gastro-esophageal reflux disease without esophagitis; R26.89 Other abnormalities of gait and mobility; Q99.9 Chromosomal abnormality, unspecified; Z79.82 Long term (current) use of aspirin; Z79.84 Long term (current) use of oral hypoglycemic drugs; Z79.899 Other long term (current) drug therapy
CPT/HCPCS: 36415; 51701; 70450; 72100; 73521; 74018; 80048; 80053; 81001; 83605; 83735; 84484; 85025; 85610; 85730; 87040; 93005; 93306; 93880; 96361; 96372; 96374; 96375; 99285

== ENCOUNTER → 2024-03-20 | Outpatient (CLI) | payer MEDICARE, BC, OTHER ==
--- NOTE | 2024-03-20 11:51 | XR ---
EXAMINATION TYPE: XR tibia fibula LT DATE OF EXAM: 03/20/2024 CLINICAL HISTORY: pain TECHNIQUE: AP and lateral images of the left tibia and fibula are obtained. COMPARISON: None. FINDINGS: Minimally displaced fracture involving the proximal fibular neck and proximal diaphysis. Th ere is additional displaced fracture involving the distal left fibular diaphysis with displacement of 4 mm. There is also medial malleolar fracture and disruption of the ankle mortise with medial wideni ng of 4.7 mm versus lateral component of 2 mm. IMPRESSION: Fibular and medial malleolar fractures as discussed. [facility], , 03/20/2024 11:49 AM
[2024-03-20 16:44] LABS: Basophils # (A) 0.05 X 10*3/uL (0.00-0.10); Eosinophils # (A) 0.09 X 10*3/uL (0.04-0.35); Eosinophils % (A) 1.8 %; HCT 37.4 % (37.2-46.3); HGB 11.9 g/dL (12.0-15.0); Lymphocytes % (A) 21.8 %; MCH 30.4 pg (27.0-32.0); MCHC 31.8 g/dL (32.0-37.0); MCV 95.7 FL (80.0-97.0); Mean Platelet Volume 10.3 FL (9.5-12.2); Monocytes # (A) 0.38 X 10*3/uL (0.20-1.00); Monocytes % (A) 7.5 %; NRBC Per 100 WBC 0 X 10*3/uL (0.00-0.01); Neutrophils # (A) 3.42 X 10*3/uL (1.80-7.70); Neutrophils % (A) 67.7 %; Platelet Count 209 X 10*3/uL (140-440); RBC 3.91 X 10*6/uL (4.10-5.20); RDW 12.8 % (11.5-14.5); WBC 5.05 X 10*3/uL (4.50-10.00)
[2024-03-20 16:55] LABS: ALT 10 U/L (8-44); AST 15 U/L (13-35); Albumin 4.1 g/dL (3.8-4.9); Albumin/Globulin Ratio 1.64 Ratio (1.60-3.17); Alkaline Phosphatase 166 U/L (41-126); Blood Urea Nitrogen 33.9 mg/dL (9.0-27.0); Calcium 9.8 mg/dL (8.7-10.3); Carbon Dioxide 23.6 mmol/L (21.6-31.8); Chloride 104 mmol/L (96-109); Globulin 2.5 g/dL (1.6-3.3); Glucose 123 mg/dL (70-110); Potassium 5.3 mmol/L (3.5-5.5); Sodium 141 mmol/L (135-145); Total Bilirubin 0.4 mg/dL (0.3-1.2); Total Protein 6.6 g/dL (6.2-8.2)
--- NOTE | 2024-04-01 11:00 | US ---
EXAMINATION TYPE: US venous doppler duplex LE LT DATE OF EXAM: 03/20/2024 11:17 AM COMPARISON: NONE CLINICAL INDICATION: Female, 63 years old with history of R22.42 SWELLING MASS LUMP; fracture left le g. left leg edema SIDE PERFORMED: left TECHNIQUE: The lower extremity deep venous system is examined utilizing real time linear array sonog radha with graded compression, color doppler sonography, and spectral doppler. VESSELS IMAGED: Common Femoral Vein Deep Femoral Vein Greater Saphenous Vein * Femoral Vein Popliteal Vein Small Saphenous Vein * Proximal Calf Veins (* superficial vessels) Grayscale, color doppler, spectral doppler imaging performed of the deep veins of the left lower extr emity. There is normal flow, compressibility, vascular waveforms. Left Leg: no evidence of DVT as visualized at this time IMPRESSION: No visualized deep venous thrombosis of the left lower extremity. [facility], , 04/01/2024 10:58 AM
== END | disposition home or self-care (01) ==
LOC: RADUSWWP 10:39
PROVIDERS: ATTEND Family Medicine
DX: R22.42 Localized swelling, mass and lump, left lower limb
CPT/HCPCS: 80053; 83036; 85025

== ENCOUNTER 2024-03-27 12:32 | Day surgery (SDC) | payer MEDICARE, BC, OTHER ==
[~2024-03-27 12:32] MED LIST: HYDROmorphone 0.5 MG/0.5 ML SYRINGE IVP PRN; LIDOCAINE 1% (10MG/ML) FOR IV START INTRADERMA PRN; ceFAZolin 1,000 MG in SODIUM CHLORIDE 0.9% IRRIGATIO 1,000 ML IRRIGATION PRN; fentaNYL (PF) 50 MCG/ML 2 ML AMP IVP PRN
[2024-03-27 13:20] LABS: Glucose,Whole Blood 112 mg/dL (70-110)
[2024-03-27] MEDS: LACTATED RINGERS 1,000 ML IV SCH (13:30)
[2024-03-27] MEDS: ONDANSETRON 4 MG/2 ML VIAL IVP ONE (13:30)
[2024-03-27] MEDS: DEXAMETHASONE SOD PHOSPHATE 4 MG/ML 1 ML VIAL IV ONE (13:30)
[2024-03-27] MEDS: IV FLUID CONTINUATION 1,000 ML IV ONE (13:34)
[2024-03-27] MEDS: MIDAZOLAM 2 MG/2 ML VIAL IV PRN (14:35)
--- NOTE | 2024-03-27 15:04 | P.ANPRN ---
Procedure Note - Anesthesia - Nerve Block Performed Left Adductor Canal Single Date of Procedure: 03/27/24 Procedure Start Time: 14:35 Procedure Stop Time: 14:43 Indication: Acute Post-Operative Pain, Requested by Surgeon Sedation Type: Sedate with meaningful contact maintained Preparation: Sterile Prep Position: Supine Needle Types: Facet Needle Gauge: 21 Ultrasound used to visualize needle placement: Yes Ultrasound used to observe medication spread: Yes Injectate: 0.5% Ropivacaine (see comment for volume) (10 mls plus 10 mls of NS) Blood Aspirated: No Pain Paresthesia on Injection Noted: No Resistance on Injection: Normal Image Stored and Saved: Yes Events: Uneventful and Well Tolerated
--- NOTE | 2024-03-27 15:06 | P.ANPRN ---
Procedure Note - Anesthesia - Nerve Block Performed Left Popliteal Single Date of Procedure: 03/27/24 Procedure Start Time: 14:44 Procedure Stop Time: 14:57 Indication: Acute Post-Operative Pain, Requested by Surgeon Sedation Type: Sedate with meaningful contact maintained Preparation: Sterile Prep Position: Supine Catheter: None Needle Types: Facet Needle Gauge: 21 Ultrasound used to visualize needle placement: Yes Ultrasound used to observe medication spread: Yes Injectate: 0.5% Ropivacaine (see comment for volume) (25 mls) Blood Aspirated: No Pain Paresthesia on Injection Noted: No Resistance on Injection: Normal Image Stored and Saved: Yes Events: Uneventful and Well Tolerated
[2024-03-27] MEDS ORDERED: PROPOFOL 10 MG/ML 20 ML VIAL IV ONE (15:45)
[2024-03-27] MEDS ORDERED: ePHEDrine 50 MG/ML 1 ML VIAL ONE (15:45)
[2024-03-27] MEDS ORDERED: ROPIVACAINE 5 MG/ML 30 ML VIAL ONE (15:45)
[2024-03-27] MEDS ORDERED: SODIUM CHLORIDE 0.9% (PF) 10 ML VIAL ONE (15:45)
[2024-03-27] MEDS ORDERED: LIDOCAINE 1% INJ 10MG/ML (20 ML MDV) ONE (15:45)
[2024-03-27] MEDS ORDERED: PHENYLEPHRINE-0.9% NACL SYG 1,000 MCG/10 ML SYRINGE ONE (15:45)
[2024-03-27] MEDS ORDERED: fentaNYL (PF) 50 MCG/ML 2 ML AMP ONE (15:45)
[2024-03-27] MEDS ORDERED: GLYCOPYRROLATE 0.2 MG/ML 2 ML VIAL ONE (15:45)
[2024-03-27] MEDS ORDERED: BENZOCAINE/MENTHOL LOZENG 1 EACH LOZENGE MUCOUS MEM PRN (17:44)
[2024-03-27] MEDS ORDERED: NALOXONE 0.4 MG/ML 1 ML VIAL IV PRN (17:44)
[2024-03-27] MEDS ORDERED: HYDROmorphone 0.5 MG/0.5 ML SYRINGE IVP PRN (17:44)
--- NOTE | 2024-03-27 17:44 | P.OP ---
Date of Procedure: 03/27/24 Preoperative Diagnosis: Bimalleolar displaced ankle fracture, acute traumatic Postoperative Diagnosis: Same Anesthesia: MAC Pathology: none sent Condition: stable Disposition: PACU Description of Procedure: BRIEF OPERATIVE NOTE Preoperative Diagnosis: Bimalleolar left ankle fracture, acute traumatic displaced neurovascularly intact Postoperative Diagnosis: Same Procedure: Open reduction internal fixation of right distal fibula and tibia malleolus fracture Use of fluoroscopic guidance Surgeon: Dr. Moore Cell Room Supervisor: Inocencio Charles is present throughout the entire the case persistence during positioning, dissection, exposure, visualization, and all crucial elements of the case as well as closure. Anesthesia: General anesthesia Estimated blood loss: Less than 75 mL Tourniquet time: None Specimen: None Complications: None apparent Components implanted: Synthes small frag one third semitubular plate with 7 screws with combination of 3.5 cortical and 40 cancellus screws and a 4.0 cannulated screw measuring 40 mm with long threads for the medial malleolus x 1 Disposition: To recovery room in good stable condition. OPERATIVE INDICATIONS The patient had an acute injury a couple of weeks ago when she slipped when she was getting out of bed. She was initially admitted to the hospital prior to this injury. She had had a fall where she lives at a long term in facility as she has some mental disabilities. She was initially evaluated and found to have a proximal fibula fracture. I had been concerned for the possibility of a Maisonneuve type fracture and ordered further imaging for of her tibia and ankle which did not show any evidence of fracture at the ankle joint. We started treatment for the proximal fibula fracture conservatively and have her follow- up. Apparently when she was getting out of bed sometime after her evaluation she had a stumble and further left ankle pain. They did not think much of it at the time and continue to monitor her but she continued to have pain at her left leg. They had presumed that it had been due to the initial injury. She followed up in our office a couple weeks later and was found to have the proximal fibula fracture but also evidence of new bimalleolar ankle fracture. There is displacement and widening at the ankle mortise with a medial malleoli are fragment and a lateral malleolus fragment above the syndesmosis. She was evaluated and found have a comminuted distal fibula fracture and medial malleolus with accompanying medial sided pain. With her worsening pain and new injury with widening of the ankle mortise I felt that she would be best served with surgical intervention to give her the best chance of healing appropriately. She was with her caregivers and we discussed this at length along with her. I discussed the risk of occasions alternatives and benefits of surgery in relation to her injury. I discussed the risk of bleeding risk and infection risk and need for further surgery risk of decreased loss of motion loss function malunion nonunion hardware failure nerve damage as well as, occasions with surgery were explained. I answered her questions best my ability and she elected proceed with surgical intervention. OPERATIVE SUMMARY After discussing all the risks, patient alternatives and benefits at length, the patient elected to proceed with surgical intervention, signed informed consent, and presented for their procedure. The patient was seen and examined in the preoperative holding area and the surgical site was marked. She had her caregivers at bedside with her. The patient was given antibiotics and brought to the operating room. The patient was sedated and intubated by anesthesia in standard fashion. The patient was positioned on to the operating room table in a supine position with a pad under her right hip. We were careful to pad any bony prominences and pressure points. We were careful to maintain the patient's cervical spine and good neutral alignment and position throughout. We used C-arm machines to establish union fluoroscopic guidance in AP and lateral positions. We were able to localize the fractures appropriately. The patient was prepped and draped in a normal standard fashion. An appropriate timeout and keystone protocol performed. We were able to proceed with the surgery. The local wound area was infiltrated with local anesthetic. An incision was made over the lateral aspect of the ankle and I dissected down to the distal fibula appropriately. The fracture was obvious and I was able to mobilize some of the fragments and elevated some of the periosteum leaving as much is intact as possible. Note was made of some early scar tissue and healing formation around the fracture site but it was still significantly mobile and unstable. I performed a gentle reduction techniques in order to get the fractures well aligned and use of bone clamp to get good provisional fixation. I was able to get good near-anatomic position. This was confirmed with C-arm guidance. I was then able to measure and position a one third semitubular 7 hole plate and contoured appropriately over the distal fibula and over the fracture site proximally and distally. I establish an interfragmentary screw going from anterior to posterior across fracture site and good alignment and position with good bony fixation. As able to remove the bone clamp in place the plate laterally and placed cortical screws proximally and cancellous screws distally to get excellent fixation at a near anatomic position. This was co nfirmed with C-arm guidance. I was able to turn my attention to the medial malleolus. The fragment was quite small and I made an incision approximately 1 inch over the distal aspect of the medial malleolus. I was able to visualize the area and with multiple attempts I was able to establish a guidepin through the distal fragment into the distal tibia. It was overdrilled and a screw was placed in good alignment good position with good bony purchase at the medial malleolus getting good contact at the fracture site and good reduction. Imaging was taken which showed good alignment good position at the medial lateral malleolus and the hardware. I performed medial and lateral varus and valgus stress at the ankle after fixation was performed and there is no evidence of any widening or displacement of the syndesmosis or the ankle mortise. I do not feel we needed any further fixation. We were able to proceed with closure. Deep layers were closed with 2-0 Vicryl subcu tissues closed 2-0 Vicryl and skin was closed with robin. The wound was cleaned and dried and dressed with the appropriate dressing. I placed a sugar tong and posterior mold well-padded well molded splint at the right lower leg. The drapes were broken down. The patient was gently rolled back onto their hospital bed being careful to maintain their cervical spine and good neutral alignment and position. They were woken up by anesthesia, extubated, and brought to the recovery room in good stable condition. The patient will be able to be discharged from the hospital after appropriate observation due to and for appropriate postoperative care, medical management and monitoring. We will continue to follow them closely about the postoperative course. a plan see her back in the office in approximately 1 week's time or sooner if she is having problems.
[2024-03-27] MEDS ORDERED: LORazepam 0.5 MG TAB PO PRN (17:47)
[2024-03-27 18:00] LABS: Glucose,Whole Blood 128 mg/dL (70-110)
--- NOTE | 2024-03-27 18:31 | XR ---
Fluoroscopy History: LEFT ANKLE FX lt ankle fx [facility], , 03/27/2024 6:28 PM
[2024-03-27] MEDS: SODIUM CHLORIDE 0.9% 1,000 ML IV SCH (20:18)
[2024-03-27] MEDS: ATORVASTATIN 20 MG TAB PO SCH (20:18)
[2024-03-27] MEDS: PANTOPRAZOLE 40 MG TABLET PO SCH (20:18)
[2024-03-27] MEDS: FLUoxetine HCL 10 MG CAP PO SCH (20:18)
[2024-03-27] MEDS: carvediloL 3.125 MG TAB PO SCH (20:29)
[2024-03-27 20:54] LABS: Glucose,Whole Blood 193 mg/dL (70-110)
[2024-03-27] MEDS: metFORMIN 500 MG TAB PO SCH (21:29)
[2024-03-28] MEDS: ACETAMINOPHEN TAB 325 MG TAB PO PRN (01:32)
[2024-03-28 02:42] VITALS: TEMP 97.5
[2024-03-28 05:57] LABS: Glucose,Whole Blood 98 mg/dL (70-110)
[2024-03-28] MEDS: HYDROcodone/APAP 5-325MG 1 EACH TAB PO PRN (06:13)
[2024-03-28] MEDS: CHOLECALCIFEROL 25 MCG (1000 IU) TABLET PO SCH (06:15)
[2024-03-28 06:16] LABS: Basophils % (A) 0 %; Eosinophils % (A) 0 %; HCT 33.3 % (34.0-46.0); HGB 10.9 gm/dL (11.4-16.0); Lymphocytes # (A) 0.9 k/uL (1.0-4.8); Lymphocytes % (A) 19 %; MCH 30.8 pg (25.0-35.0); MCHC 32.8 g/dL (31.0-37.0); MCV 93.8 fL (80.0-100.0); Mean Platelet Volume 8.1; Monocytes # (A) 0.3 k/uL (0-1.0); Monocytes % (A) 6 %; Neutrophils # (A) 3.5 k/uL (1.3-7.7); Neutrophils % (A) 74 %; RBC 3.55 m/uL (3.80-5.40); WBC 4.8 k/uL (3.8-10.6)
[2024-03-28 06:24] LABS: Platelet Count 145 k/uL (150-450)
[2024-03-28 07:52] LABS: African American GFR (CKD) 53 (>60 ml/min/1.73 sqM); Anion Gap 8 mmol/L; Blood Urea Nitrogen 33 mg/dL (7-17); Calcium 9.2 mg/dL (8.4-10.2); Carbon Dioxide 20 mmol/L (22-30); Chloride 108 mmol/L (98-107); Glucose 116 mg/dL (74-99); Non-African American GFR(CKD) 46 (>60 ml/min/1.73 sqM); Potassium 5.1 mmol/L (3.5-5.1); Sodium 136 mmol/L (137-145)
[2024-03-28] MEDS: ASPIRIN 81 MG PO SCH (08:21)
[2024-03-28] MEDS: DOCUSATE 100 MG CAP PO SCH (08:21)
[2024-03-28 08:53] VITALS: BP 102/55; PULSE 73; RESP 18
--- NOTE | 2024-03-28 09:55 | FL ---
Fluoroscopy History: LEFT ANKLE FX Fluoroscopy utilized for fracture. [facility], , 03/28/2024 9:53 AM
--- NOTE | 2024-03-28 11:03 | P.DS ---
Providers Date of admission: 03/27/2024 Expected date of discharge: 03/28/24 Attending physician: Jenae Moore Primary care physician: Wade Oropeza - Discharge Diagnosis(es) (1) Left ankle pain Current Visit: Yes Status: Acute (2) Hyperlipidemia Current Visit: Yes Status: Acute (3) Kidney disease Current Visit: Yes Status: Acute (4) Type 2 diabetes mellitus Current Visit: Yes Status: Acute (5) Hypertension Current Visit: Yes Status: Acute (6) Displaced bimalleolar fracture of left lower leg Current Visit: Yes Status: Acute Hospital Course: This is a pleasant 63-year-old female who presented with acute traumatic left bimalleolar ankle fracture who failed outpatient conservative therapy. She was admitted for open reduction internal fixation of the left distal fibula and tibia malleolus. The patient tolerated the procedure well and did well postoperatively. Patient does reside in a half-way. Patient does not communicate or answer questions well. Communication and plan of care is discussed in detail with the patient's family who is at the bedside. Patient will plan to be discharged back to the half-way today. They do have a Eleuterio lift to aid in mobility. Patient has kept the bulky Young splint over the left lower extremity clean, dry, and intact. She is not currently complaining of pain. She is not having any difficulty with her Young splint. She is remaining nonweightbearing on the left lower extremity. Condition on day of discharge stable. Patient will be discharged home to the half-way in which she normally resides. Patient will be discharged home with home health services. Patient was cleared preoperatively for surgery by Dr. Oropeza and cardiology. Patient is eating and voiding freely without difficulty. Patient will remain strict nonweightbearing on the left lower extremity. She will keep her bulky Young splint intact until her scheduled follow-up appointment in the office in approximately 7 to 10 days. Derrick remain intact until they are removed in the office setting. Patient is encouraged to utilize a Eleuterio to aid in mobility. She may utilize a walker to aid in ambulation while remaining strict nonweightbearing on the left lower extremity. MAPS has been reviewed today, 03/28/2024, with an Overall Overdose Risk Score of 150. An "Opiod Start Talking" Form is unable to be signed due to patient's mental status. A prescription has been written for Ultram 50 mg, 1 tab, every 6 hours, as needed for acute pain, dispense #28. This is sent to the [facility] pharmacy located within [facility] per request of the patient's family. Patient's other medical diagnoses include hyperlipidemia, kidney disease, hypertension, and type 2 diabetes. Patient will avoid anti-inflammatory medications. Physical Exam on day of discharge: Patient is awake and alert Vital signs stable Good chest excursion with deep inspiration and expiration Bulky Young dressing is intact of the left lower extremity. Dressing is clean, dry, and intact No significant erythema over the left knee or left toes Patient is able to perform knee flexion on the left without any significant difficulty Procedures: Open reduction internal fixation of the left distal fibula and tibia malleolus Patient Condition at Discharge: Stable Plan - Discharge Summary Discharge Rx Participant: Yes New Discharge Prescriptions: New traMADol HCl [Ultram] 50 mg PO Q6H PRN #28 tab PRN Reason: Pain No Action carvediloL [Coreg] 3.125 mg PO BID@ Cholecalciferol [Vitamin D3 (25 Mcg = 1000 Iu)] 25 mcg PO DAILY@629 Acetaminophen Tab [Tylenol] 650 mg PO Q6HR PRN tab PRN Reason: Mild Pain Or Fever > 100.5 Docusate [Colace] 100 mg PO DAILY Melatonin 3 mg PO HS FLUoxetine HCL [PROzac] 30 mg PO HS@1929 Atorvastatin [Lipitor] 20 mg PO HS@1929 polyethylene glycoL 3350 [Miralax] 17 gm PO Q3D PRN PRN Reason: if no bm LORazepam [Ativan] 0.5 mg PO DAILY PRN #3 tab PRN Reason: Anxiety metFORMIN HCL ER [Glucophage XR] 1,000 mg PO HS@1929 Aspirin 81 mg PO DAILY Omeprazole [PriLOSEC] 20 mg PO BID@ Discharge Medication List carvediloL [Coreg] 3.125 mg PO BID@629,192906/27/20 [History] Atorvastatin [Lipitor] 20 mg PO HS@192909/08/22 [History] FLUoxetine HCL [PROzac] 30 mg PO HS@192909/08/22 [History] polyethylene glycoL 3350 [Miralax] 17 gm PO Q3D PRN 08/19/23 [History] LORazepam [Ativan] 0.5 mg PO DAILY PRN #3 tab 08/24/23 [Rx] Aspirin 81 mg PO DAILY 03/05/24 [History] Cholecalciferol [Vitamin D3 (25 Mcg = 1000 Iu)] 25 mcg PO DAILY@0630 03/05/24 [History] Omeprazole [PriLOSEC] 20 mg PO BID@06,192903/05/24 [History] metFORMIN HCL ER [Glucophage XR] 1,000 mg PO HS@192903/05/24 [History] Acetaminophen Tab [Tylenol] 650 mg PO Q6HR PRN tab 03/08/24 [Rx] Docusate [Colace] 100 mg PO DAILY 03/26/24 [History] Melatonin 3 mg PO HS 03/26/24 [History] traMADol HCl [Ultram] 50 mg PO Q6H PRN #28 tab 03/28/24 [Rx] Follow up Appointment(s)/Referral(s): [facility], [NON-STAFF] - As Needed ([facility] will call you to schedule your in home nursing, physical therapy, and occupational therapy visits. ) Inocencio Ray PAC [PHYSICIAN SHOPPER'S AIDE] - 04/11/24 1:30 pm (Patient may follow-up with Inocencio Ray PA-C or Dr. Cameron Moore at [facility] in 7-10 days following discharge. ) Activity/Diet/Wound Care/Special Instructions: 1. Keep bulky Yougn splint intact of the left lower extremity 2. Strict nonweightbearing on the left lower extremity 3. Patient may utilize Eleuterio lift to aid in transfers 4. Patient may use walker to aid in ambulation 5. Encourage elevation and ice over the left lower extremity for comfort support as needed 6. Take medications as prescribed Discharge Disposition: HOME WITH HOME HEALTH SERVICES
== END 2024-03-28 12:05 | disposition home health service (06) ==
LOC: OR 12:32 → 4SSUR 17:26 → OR 03-28 12:05
PROVIDERS: ATTEND Orthopaedic Surgery Orthopaedic Surgery of the Spine
CPT/HCPCS: 64445; 64447; 80048; 84132; 85025

== ENCOUNTER → 2024-07-03 | Outpatient (CLI) | payer MEDICARE, BC, OTHER ==
[2024-07-03 17:08] LABS: % Iron Saturation 19.81 (12.00-45.00); ALT 8 U/L (8-44); AST 13 U/L (13-35); Albumin 3.8 g/dL (3.8-4.9); Albumin/Globulin Ratio 1.58 Ratio (1.60-3.17); Alkaline Phosphatase 121 U/L (41-126); BUN/Creat Ratio 28.64 Ratio (12.00-20.00); Blood Urea Nitrogen 40.1 mg/dL (9.0-27.0); Calcium 9.6 mg/dL (8.7-10.3); Carbon Dioxide 22.6 mmol/L (21.6-31.8); Chloride 104 mmol/L (96-109); Ferritin 79.4 ng/mL (10.0-291.0); Globulin 2.4 g/dL (1.6-3.3); Glucose 120 mg/dL (70-110); Iron 61 UG/DL (50-170); Magnesium 1.8 mg/dL (1.5-2.4); Phosphorus 3.2 mg/dL (2.4-5.1); Potassium 5.5 mmol/L (3.5-5.5); Sodium 138 mmol/L (135-145); Total Bilirubin 0.2 mg/dL (0.3-1.2); Total Iron Binding Capacity 308 UG/DL (228-460); Total Protein 6.2 g/dL (6.2-8.2)
[2024-07-03 17:15] LABS: HCT 37.8 % (37.2-46.3); MCH 29.1 pg (27.0-32.0); MCHC 31.7 g/dL (32.0-37.0); MCV 91.7 FL (80.0-97.0); Mean Platelet Volume 11.7 FL (9.5-12.2); NRBC Per 100 WBC 0 X 10*3/uL (0.00-0.01); Platelet Count 116 X 10*3/uL (140-440); RBC 4.12 X 10*6/uL (4.10-5.20); WBC 4.49 X 10*3/uL (4.50-10.00)
[2024-07-04 13:05] LABS: Free Kappa Lt Chain Qnt, Serum 4.63 mg/dL (0.33-1.94); Free Lambda Lt Chain Qnt, Seru 4.36 mg/dL (0.57-2.63)
== END | disposition home or self-care (01) ==
LOC: LABWHC1 09:26
PROVIDERS: ATTEND Internal Medicine
DX: N18.32 Chronic kidney disease, stage 3b (principal); D63.1 Anemia in chronic kidney disease; E55.9 Vitamin D deficiency, unspecified; N39.0 Urinary tract infection, site not specified; M10.9 Gout, unspecified; N25.81 Secondary hyperparathyroidism of renal origin; R80.9 Proteinuria, unspecified
CPT/HCPCS: 36415; 80053; 82306; 82728; 83540; 83550; 83735; 83883; 83970; 84100; 84550; 85027; 86334

== ENCOUNTER → 2024-07-19 | Outpatient (CLI) | payer MEDICARE, BC, OTHER ==
--- NOTE | 2024-07-19 10:03 | US ---
EXAMINATION TYPE: US kidneys/renal and bladder DATE OF EXAM: 07/19/2024 COMPARISON: NONE CLINICAL INDICATION: Female, 64 years old with history of [id number] CKD; TECHNIQUE: Grayscale imaging of the bilateral kidneys and urinary bladder FINDINGS: EXAM MEASUREMENTS: Right Kidney: 8.1 x 3.3 x3.6 cm Left Kidney: 8.4 x 4.3 x 3.9 cm Exchange Engineer notes: limited due to body habitus and bowel gas. Right Kidney: Cystic area mid pole 1.5 x 1.2 x 1.3 cm. Either pelviectasis or a parapelvic cyst. Shor t interval follow-up can be considered. Left Kidney: No hydronephrosis or masses seen Bladder: Under distention limits evaluation. IMPRESSION: Detailed parenchymal assessment limited by body habitus and bowel gas. No hydronephrosis. [facility], Workstation: [employer], 07/19/2024 10:00 AM
== END | disposition home or self-care (01) ==
LOC: RADUSWWP 09:30
PROVIDERS: ATTEND Internal Medicine
DX: N18.32 Chronic kidney disease, stage 3b (principal); R14.3 Flatulence
CPT/HCPCS: 76770

== ENCOUNTER → 2024-10-03 | Outpatient (CLI) | payer MEDICARE, BC, OTHER ==
[2024-10-03 15:31] LABS: HCT 41.4 % (37.2-46.3); HGB 12.9 g/dL (12.0-15.0); MCH 29.5 pg (27.0-32.0); MCHC 31.2 g/dL (32.0-37.0); MCV 94.5 FL (80.0-97.0); Mean Platelet Volume 10.6 FL (9.5-12.2); NRBC Per 100 WBC 0 X 10*3/uL (0.00-0.01); Platelet Count 116 X 10*3/uL (140-440); RBC 4.38 X 10*6/uL (4.10-5.20); RDW 13.7 % (11.5-14.5); WBC 3.93 X 10*3/uL (4.50-10.00)
[2024-10-03 15:53] LABS: Phosphorus 3.9 mg/dL (2.4-5.1)
[2024-10-03 15:54] LABS: % Iron Saturation 15.93 (12.00-45.00); ALT 10 U/L (8-44); AST 15 U/L (13-35); Albumin 4.1 g/dL (3.8-4.9); Albumin/Globulin Ratio 1.64 Ratio (1.60-3.17); Alkaline Phosphatase 129 U/L (41-126); BUN/Creat Ratio 24.29 Ratio (12.00-20.00); Calcium 9.9 mg/dL (8.7-10.3); Carbon Dioxide 26.6 mmol/L (21.6-31.8); Chloride 107 mmol/L (96-109); Globulin 2.5 g/dL (1.6-3.3); Glucose 99 mg/dL (70-110); Iron 54 UG/DL (50-170); Potassium 5.2 mmol/L (3.5-5.5); Sodium 142 mmol/L (135-145); Total Bilirubin 0.2 mg/dL (0.3-1.2); Total Iron Binding Capacity 339 UG/DL (228-460); Total Protein 6.6 g/dL (6.2-8.2); Uric Acid 7.5 mg/dL (2.9-7.7)
== END | disposition home or self-care (01) ==
LOC: LABWHC1 10:59
PROVIDERS: ATTEND Nurse Practitioner Family
DX: N18.32 Chronic kidney disease, stage 3b (principal); D63.1 Anemia in chronic kidney disease; E55.9 Vitamin D deficiency, unspecified; N39.0 Urinary tract infection, site not specified; N25.81 Secondary hyperparathyroidism of renal origin; M10.9 Gout, unspecified; R80.9 Proteinuria, unspecified
CPT/HCPCS: 36415; 80053; 82306; 82728; 83540; 83550; 83735; 83970; 84100; 84550; 85027

== ENCOUNTER 2024-11-06 10:35 | Emergency (ER) | payer MEDICARE, BC, OTHER ==
--- NOTE | 2024-11-06 11:01 | ED ---
Lower Extremity Injury HPI - General Source: family, RN notes reviewed, Caregiver Mode of arrival: wheelchair Limitations: language barrier, physical limitation - History of Present Illness MD Complaint: hip injury, leg injury, fall Onset/Timin -: week(s) Injury: Hip: Right, Leg: Right Place: home Worsens With: weight bearing, movement, palpation Context: fall Associated Symptoms: unable to bear weight <Jeffery Angel - Last Filed: 11/06/24 21:19> <David Norman - Last Filed: 11/07/24 23:47> - General Chief Complaint: Extremity Injury, Lower Stated Complaint: Hip Fracture Time Seen by Provider: 11/06/24 10:52 - History of Present Illness Initial Comments: This is a 64-year-old female with history including chromosomal abnormalities, CKD 3, DM, hypertension, hyperlipidemia presenting with sibling caregivers for possible right hip injury. Caregiver states patient suffered a fall backwards into her recliner and then slid outward, hyperextending her right leg with subsequent inability to ambulate several weeks ago. Caregiver states patient normally does ambulate with a walker. States "right leg will not work". States patient was seen at [facility] a few days following the fall with no fracture discovered at the time. Patient was seen by Dr. Torres who advised further imaging at [facility]. Caregiver states patient does not complain often of any pain or other issues. Otherwise very difficult to attain subjective history from patient. Dr. Torres advised direct admission under him if fracture should be discovered. (Jeffery Angel) - Related Data Home Medications Medication Instructions Recorded Confirmed carvediloL [Coreg] 3.125 mg PO BID@0600,1900 06/27/20 11/06/24 Atorvastatin [Lipitor] 20 mg PO HS@19009/08/22 11/06/24 FLUoxetine HCL [PROzac] 20 mg PO HS@189909/08/22 11/06/24 polyethylene glycoL 3350 [Miralax] 17 gm PO DAILY@0608/19/23 11/06/24 Aspirin 81 mg PO DAILY@0603/05/24 11/06/24 Cholecalciferol [Vitamin D3 (25 25 mcg PO DAILY@59903/05/24 11/06/24 Mcg = 1000 Iu)] Omeprazole [PriLOSEC] 20 mg PO BID@0600,1900 03/05/24 11/06/24 metFORMIN HCL ER [Glucophage XR] 1,000 mg PO HS@1900 03/05/24 11/06/24 Docusate [Colace] 100 mg PO DAILY@0600 03/26/24 11/06/24 Melatonin 3 mg PO HS@1900 03/26/24 11/06/24 FLUoxetine HCL [PROzac] 10 mg PO HS@1900 11/06/24 11/06/24 Previous Rx's Medication Instructions Recorded LORazepam [Ativan] 0.5 mg PO DAILY PRN #3 tab 08/24/23 Allergies Allergy/AdvReac Type Severity Reaction Status Date / Time No Known Allergies Allergy Verified 11/06/24 12:09 Review of Systems ROS Other: All systems not noted in ROS Statement are negative. <Jeffery Angel - Last Filed: 11/06/24 21:19> ROS Other: All systems not noted in ROS Statement are negative. <David Norman - Last Filed: 11/07/24 23:47> ROS Statement: Those systems with pertinent positive or pertinent negative responses have been documented in the HPI. 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 Kyphosis,typically uses walker the last few years History of Any Multi-Drug Resistant Organisms: None Reported Past Surgical History: No Surgical Hx Reported Additional Past Surgical History / Comment(s): eye surgery, meniscus repair Past Anesthesia/Blood Transfusion Reactions: No Reported Reaction Additional Past Anesthesia/Blood Transfusion Reaction / Comment(s): no hx blood transfusion Past Psychological History: Anxiety, Depression Smoking Status: Never smoker Past Alcohol Use History: None Reported Past Drug Use History: None Reported - Past Family History Mother Family Medical History: Cancer Additional Family Medical History / Comment(s): breast Ca at age 90 Father Family Medical History: Congestive Heart Failure (CHF), Coronary Artery Disease (CAD) <Jeffery Angel - Last Filed: 11/06/24 21:19> General Exam Limitations: language barrier, physical limitation General appearance: alert, in no apparent distress Head exam: Present: atraumatic, normocephalic, normal inspection Eye exam: Present: normal appearance, PERRL, EOMI. Absent: scleral icterus, conjunctival injection, periorbital swelling ENT exam: Present: normal exam, mucous membranes moist Neck exam: Present: normal inspection. Absent: tenderness, meningismus, lymphadenopathy Respiratory exam: Present: normal lung sounds bilaterally. Absent: respiratory distress, wheezes, rales, rhonchi, stridor Cardiovascular Exam: Present: regular rate, normal rhythm, normal heart sounds. Absent: systolic murmur, diastolic murmur, rubs, gallop, clicks GI/Abdominal exam: Present: soft, normal bowel sounds. Absent: distended, tenderness, guarding, rebound, rigid Extremities exam: Present: full ROM, tenderness (Patient notes right hip tenderness without pelvic instability, crepitus. Positive right tib-fib TTP without obvious crepitus or deformity.), normal capillary refill, other (Distal BLE neurovascular and motor function intact. Posterior tibialis pulse +2 bilaterally.). Absent: pedal edema, joint swelling, calf tenderness Back exam: Present: normal inspection Neurological exam: Present: alert, oriented X3, CN II-XII intact Psychiatric exam: Present: normal affect, normal mood Skin exam: Present: warm, dry, intact, normal color. Absent: rash <Jeffery Angel - Last Filed: 11/06/24 21:19> Course Vital Signs 11/06/24 11/06/24 10:36 13:24 Temperature 97.2 F L 98.0 F Pulse Rate 71 76 Respiratory 16 18 Rate Blood Pressure 110/56 112/60 O2 Sat by Pulse 98 98 Oximetry Medical Decision Making <Jeffery Angel - Last Filed: 11/06/24 21:19> - Medical Decision Making Was pt. sent in by a medical professional or institution (, PA, RN GASTROENTEROLOGY, urgent care, hospital, or fci...) When possible be specific @ -Dr. Torres Did you speak to anyone other than the patient for history (EMS, parent, family, police, friend...)? What history was obtained from this source @ -Caregiver/family provided entirety of HPI Did you review nursing and triage notes (agree or disagree)? Why? @ -I reviewed and agree with nursing and triage notes Were old charts reviewed (outside hosp., previous admission, EMS record, old EKG, old radiological studies, urgent care reports/EKG's, fci records)? Report findings @ -No old charts were reviewed Differential Diagnosis (chest pain, altered mental status, abdominal pain women, abdominal pain men, vaginal bleeding, weakness, fever, dyspnea, syncope, headache, dizziness, GI bleed, back pain, seizure, CVA, palpatations, mental health, musculoskeletal)? @ -Differential Musculoskeletal Muscular strain, contusion, ligament sprain, fracture, arthritis, septic arthritis, bursitis, cellulitis, muscle spasm, nerve compression, DVT, arterial occlusion, herpes zoster, electrolyte abnormality, tumor.... This is not meant to be in all inclusive list EKG interpreted by me (3pts min.). @ -Not done X-rays interpreted by me (1pt min.). @ -None done CT interpreted by me (1pt min.). @ -Right lower extremity CT initially found noted acute displaced fracture of the entirety of the right lower extremity. Moderate to advanced narrowing of the right hip joint and moderate to advanced tricompartmental degenerative changes of the right knee noted. Addended RLE CT reveals acute comminuted nondisplaced fracture through right inferior pelvic ramus. Moderate/advanced degenerative change of the left hip joint also noted. U/S interpreted by me (1pt. min.). @ -None done What testing was considered but not performed or refused? (CT, X-rays, U/S, labs)? Why? @ -None What meds were considered but not given or refused? Why? @ -None Did you discuss the management of the patient with other professionals (professionals i.e. , PA, RN GASTROENTEROLOGY, lab, RT, psych nurse, neonatal social worker, planer feeder, teacher, correction officer city or county jail, casey saw operator)? Give summary @ -Spoke to Ortho on-call, Saad, advising him to notify Dr. Torres of negative initial imaging findings. Dr. Torres would later call to notify me of i nferior pelvic rami fracture finding, advising to notify CT radiologist for image reassessment. This was done. States he will call patient/caregiver of results and advise to return for admission. Was smoking cessation discussed for >3mins.? @ -No Was critical care preformed (if so, how long)? @ -No Were there social determinants of health that impacted care today? How? (Homelessness, low income, unemployed, alcoholism, drug addiction, transportation, low edu. Level, literacy, decrease access to med. care, group home, rehab)? @ -No Was there de-escalation of care discussed even if they declined (Discuss DNR or withdrawal of care, Hospice)? DNR status @ -No What co-morbidities impacted this encounter? (DM, HTN, Smoking, COPD, CAD, Cancer, CVA, ARF, Chemo, Hep., AIDS, mental health diagnosis, sleep apnea, morbid obesity)? @ -Congenital cognitive disability Was patient admitted / discharged? Hospital course, mention meds given and route, prescriptions, significant lab abnormalities, going to OR and other pertinent info. @ -Right lower extremity CT initially found noted acute displaced fracture of the entirety of the right lower extremity. Moderate to advanced narrowing of the right hip joint and moderate to advanced tricompartmental degenerative changes of the right knee noted. Spoke to Ortho on-call, Saad, advising him to notify Dr. Torres of negative initial imaging findings. Dr. Norman notified of negative RLE CT findings prior to discharge patient. Dr. Torres would later call to notify of inferior pelvic rami fracture, advising to call notification to CT radiologist for image reassessment. States he will call patient/caregiver of results and advise to return for admission. Discussed addended CT findings with Dr. Norman. Undiagnosed new problem with uncertain prognosis? @ -No Drug Therapy requiring intensive monitoring for toxicity (Heparin, Nitro, Insulin, Cardizem)? @ -No Were any procedures done? @ -No Diagnosis/symptom? @ -Right hip pain, anterior pelvic rami fracture. Acute, or Chronic, or Acute on Chronic? @ -Acute Uncomplicated (without systemic symptoms) or Complicated (systemic symptoms)? @ -Uncomplicated Side effects of treatment? @ -No Exacerbation, Progression, or Severe Exacerbation? @ -No Poses a threat to life or bodily function? How? (Chest pain, [place], HI, pneumonia, PE, COPD, DKA, ARF, appy, cholecystitis, CVA, Diverticulitis, Homicidal, Suicidal, threat to staff... and all critical care pts) @ -Inferior pelvic ramus fracture causing inability to ambulate (Jeffery Angel) Disposition Is patient prescribed a controlled substance at d/c from ED?: No Time of Disposition: 12:18 <Jeffery Angel - Last Filed: 11/06/24 21:19> <EmersonDavid - Last Filed: 11/07/24 23:47> Clinical Impression: Hip pain, right Disposition: HOME SELF-CARE Condition: Fair Instructions (If sedation given, give patient instructions): Fall Prevention for Older Adults (ED), Hip Pain (ED) Additional Instructions: Alternate Tylenol/Motrin every 4 hours for pain. Rest, ice, compression, elevation. Advised follow-up with Dr. Torres for any ongoing or worsening symptoms. Recommend use of Eleuterio lift for transfering Patient until pain resolved Referrals: Kwaku Ybarra MD [Primary Care Provider] - 1-2 days Lasha Torres MD [Medical Doctor] - 1-2 days
--- NOTE | 2024-11-06 12:12 | CT ---
EXAMINATION TYPE: CT lower extremity RT wo con DATE OF EXAM: 11/06/2024 COMPARISON: None. CLINICAL INDICATION: Female, 64 years old with history of Unable to bear weight on RLE following fall ; [facility], Unable to bear weight on RLE following fall. CT DLP: 725.2 mGycm Automated exposure control for dose reduction was used. FINDINGS: CT of the right lower extremity. Osseous structures are demineralized. Exam is suboptimal d ue to poor positioning. Moderate to advanced narrowing of the right hip joint is present. No acute di splaced fracture in the right femur. Moderate to advanced tricompartment degenerative change in the r ight knee is seen. No acute displaced fracture in the right tibia or fibula. Ankle mortise symmetry i s preserved. Muscle bulk is maintained in the right lower extremity. Calcified pelvic fibroids are felt present. IMPRESSION: No acute displaced fracture in the right lower extremity. . Advise further investigation with MRI and/or bone scan if suspicion persists. [facility], , 11/06/2024 12:09 PM
[2024-11-06 13:25] VITALS: BP 112/60; PULSE 76; RESP 18; TEMP 98
== END 2024-11-06 14:36 | disposition home or self-care (01) ==
LOC: EC 10:35
DX: S32.592A Other specified fracture of left pubis, initial encounter for closed fracture (principal); F79 Unspecified intellectual disabilities; E11.22 Type 2 diabetes mellitus with diabetic chronic kidney disease; I12.9 Hypertensive chronic kidney disease with stage 1 through stage 4 chronic kidney disease, or unspecified chronic kidney disease; N18.30 Chronic kidney disease, stage 3 unspecified; W19.XXXA Unspecified fall, initial encounter
CPT/HCPCS: 99283